=== PATIENT | female | born 1970 | race Native Hawaiian/Other Pacific Islander ===

== ENCOUNTER 2018-03-22 10:27 | Inpatient (IN) | payer MEDICARE, MEDICAID ==
[2018-03-22] MEDS ORDERED: NORMAL SALINE 1000 ML 1,000 ML IV PRN ×2 (10:46→15:12)
--- NOTE | 2018-03-22 10:53 | ER Document Report ---
ED Medical Screen (RME) - General Chief Complaint: Shortness Of Breath Stated Complaint: SHORTNESS OF BREATH Time Seen by Provider: 03/22/18 10:46 Notes: ELI,TRENA Erwin Female : 1970 MedRec# [id number] 03/22/18 10:30 - ED Nursing Note by BOBBY MORAN Acct Num: [id number] : 1970 Patient Age: 47 ASSISTED PT OUT OF CAR. PT REPORTS SHORTNESS OF BREATH THAT STARTED YESTERDAY. STATES SHE DOES HAVE SOME CONGESTION. Initialized on 03/22/18 10:30 - END OF NOTE 47 years old female with a history of COPD on home oxygen as needed basis presents today with a fever of 102, shaking and shivering with difficulty in breathing and pulse oximetry of 88% on room air. TRAVEL OUTSIDE OF THE [place] IN LAST 30 DAYS: No - Related Data Allergies/Adverse Reactions: No Known Allergies Allergy (Verified 03/22/18 10:30) Past Medical History - Social History Frequency of alcohol use: None Drug Abuse: None - Past Medical History Cardiac Medical History: Reports: Hx Congestive Heart Failure, Hx Hypercholesterolemia, Hx Hypertension Pulmonary Medical History: Reports: Hx COPD Endocrine Medical History: Reports: Hx Diabetes Mellitus Type 2 Renal/ Medical History: Denies: Hx Peritoneal Dialysis Physical Exam - Vital signs Vitals: Temp Pulse Resp BP Pulse Ox 102.9 F H 124 H 20 140/85 H 88 L 03/22/18 10:34 03/22/18 10:34 03/22/18 10:34 03/22/18 10:34 03/22/18 10:34 Course - Vital Signs Vital signs: Temp Pulse Resp BP Pulse Ox 102.9 F H 124 H 24 H 140/85 H 88 L 03/22/18 10:34 03/22/18 10:34 03/22/18 10:48 03/22/18 10:34 03/22/18 10:34
[2018-03-22 11:24] LABS: ABSOLUTE BASOPHILS # (AUTO) 0.1 10^3/uL (0.0-0.2); ABSOLUTE LYMPHOCYTES (AUTO) 1.2 10^3/uL (0.5-4.7); ABSOLUTE MONOCYTES (AUTO) 1.3 10^3/uL (0.1-1.4); ABSOLUTE NEUT (AUTO) 14.3 10^3/uL (1.7-8.2); BASOPHILS % (AUTO) 0.6 % (0-2); EOSINOPHILS % (AUTO) 0.1 % (0-6); HEMOGLOBIN 15.8 g/dL (12.0-15.5); LYMPHOCYTES % (AUTO) 7.3 % (13-45); MEAN CORPUSCULAR HEMOGLOBIN 26.9 pg (27.0-33.4); MEAN CORPUSCULAR HGB CONC 32.9 g/dL (32.0-36.0); MEAN CORPUSCULAR VOLUME 82 fl (80-97); MONOCYTES % (AUTO) 7.8 % (3-13); PLATELET COUNT 196 10^3/uL (150-450); RED BLOOD COUNT 5.87 10^6/uL (3.72-5.28); RED CELL DISTRIBUTION WIDTH 15.7 % (11.5-14.0); SEGMENTED NEUTROPHILS % (AUTO) 84.2 % (42-78); TOTAL CELLS COUNTED % (AUTO) 100 %
[2018-03-22 11:33] LABS: INTERNATIONAL RATION (INR) 1.24; PROTHROMBIN TIME 16.2 SEC (11.4-15.4)
[2018-03-22] MEDS ORDERED: ACETAMINOPHEN 325 MG TABLET PO ONE (11:40)
--- NOTE | 2018-03-22 11:51 | RADIOLOGY REPORT (SQ) ---
EXAM DESCRIPTION: CHEST SINGLE VIEW COMPLETED DATE/TIME: 03/22/2018 11:24 am REASON FOR STUDY: Shortness of breath COMPARISON: None. EXAM PARAMETERS: NUMBER OF VIEWS: One view. TECHNIQUE: Single frontal radiographic view of the chest acquired. RADIATION DOSE: NA LIMITATIONS: None. FINDINGS: LUNGS AND PLEURA: No opacities, masses or pneumothorax. No pleural effusion. MEDIASTINUM AND HILAR STRUCTURES: No masses. Contour normal. HEART AND VASCULAR STRUCTURES: Cardiomegaly. BONES: No acute findings. HARDWARE: None in the chest. OTHER: No other significant finding. IMPRESSION: Cardiomegaly without acute abnormality of the lungs in AP projection. TECHNICAL DOCUMENTATION: JOB ID: [id number] [employer] All Rights Reserved Reading location - IP/workstation name: [email or web address]
[2018-03-22 11:52] LABS: ALANINE AMINOTRANSFERASE 28 U/L (9-52); ALBUMIN 3.9 g/dL (3.5-5.0); ALKALINE PHOSPHATASE 233 U/L (38-126); ANION GAP 15 (5-19); ASPARTATE AMINO TRANSFERASE 31 U/L (14-36); BILIRUBIN,DIRECT 1.1 mg/dL (0.0-0.4); BLOOD UREA NITROGEN 16 mg/dL (7-20); CALCIUM 9.2 mg/dL (8.4-10.2); CARBON DIOXIDE 31 mmol/L (22-30); CHLORIDE 94 mmol/L (98-107); GLUCOSE 224 mg/dL (75-110); POTASSIUM 3.9 mmol/L (3.6-5.0); SODIUM 139.5 mmol/L (137-145); TOTAL PROTEIN 7.5 g/dL (6.3-8.2)
--- NOTE | 2018-03-22 11:58 | ER Document Report ---
ED General - General Chief Complaint: Shortness Of Breath Stated Complaint: SHORTNESS OF BREATH Time Seen by Provider: 03/22/18 10:46 Information source: Patient Notes: Patient is a 47-year-old female with past medical history including congestive heart failure, diabetes, high blood pressure, high cholesterol, on CPAP at night and oxygen during the day as needed who presents today visiting from [place] with 2 days of runny nose, congestion, shortness of breath, vomiting x2, and diarrhea x2, with diffuse body aches and a temperature max of 103. Patient denies any specific headache, neck pain, chest pain, but does state around 2 days of some urinary incontinence with some suprapubic abdominal discomfort with urination. Patient denies any flank pain or rash. TRAVEL OUTSIDE OF THE [place] IN LAST 30 DAYS: No - HPI Onset: Other - See above Onset/Duration: Gradual Quality of pain: Achy Severity: Moderate Pain Level: 3 Associated symptoms: Other - See above Exacerbated by: Denies Relieved by: Denies Similar symptoms previously: No Recently seen / treated by doctor: No - Related Data Allergies/Adverse Reactions: No Known Allergies Allergy (Verified 03/22/18 10:30) Past Medical History - Social History Smoking Status: Current Every Day Smoker Frequency of alcohol use: None Drug Abuse: None Family History: Reviewed & Not Pertinent Patient has suicidal ideation: No Patient has homicidal ideation: No - Past Medical History Cardiac Medical History: Reports: Hx Congestive Heart Failure, Hx Hypercholesterolemia, Hx Hypertension Pulmonary Medical History: Reports: Hx COPD Endocrine Medical History: Reports: Hx Diabetes Mellitus Type 2 Renal/ Medical History: Denies: Hx Peritoneal Dialysis Review of Systems - Review of Systems Constitutional: denies: Fever EENT: denies: Eye discharge, Nose discharge Cardiovascular: denies: Chest pain, Palpitations Respiratory: Short of breath Gastrointestinal: Diarrhea, Vomiting Genitourinary: Dysuria Musculoskeletal: denies: Leg swelling Skin: Other - no hives. denies: Rash Neurological/Psychological: Other - no slurred speech -: Yes All other systems reviewed and negative Physical Exam - Vital signs Vitals: Temp Pulse Resp BP Pulse Ox 102.9 F H 124 H 20 140/85 H 88 L 03/22/18 10:34 03/22/18 10:34 03/22/18 10:34 03/22/18 10:34 03/22/18 10:34 Notes: Reviewed vital signs and nursing note as charted by RN. CONSTITUTIONAL: Alert and oriented, Well-appearing; well-nourished HEAD: Normocephalic; atraumatic EYES: PERRL ENT: Normal nose; positive nasal rhinorrhea; moist mucous membranes; pharynx without lesions noted NECK: Supple without meningismus; non-tender; no cervical lymphadenopathy, no masses CARD: Tachycardic w without murmurs; symmetric distal pulses RESP: Normal chest excursion without splinting or tachypnea; breath sounds clear and equal bilaterally; no obvious rhonchi on my initial examination ABD/GI: Normal bowel sounds; elevated BMI; soft, minimal tenderness to palpation of the suprapubic region without rebound or guarding; no palpable organomegaly or masses BACK: The back appears normal and is non-tender to palpation EXT: Normal ROM in all joints; non-tender to palpation; no edema SKIN: No acute lesions noted NEURO: CN 2-12 intact; 5/5 bilateral upper and lower extremity strength with sensation intact to light touch PSYCH: The patient's mood and manner are appropriate. Grooming and personal hygiene are appropriate. Course - Re-evaluation Re-evalutation: Given the history and physical examination, we will obtain basic labs, lactic acid level, catheterized urine analysis, and x-ray of the chest, antipyretics, and influenza test, and reassess. I would like to evaluate for possible pneumonia, sepsis, influenza, or urinary tract infection. I do believe the risk of bacterial meningitis to be low at this time given the lack of headache with the other symptomatology as recorded. 03/22/18 11:57 Labs as recorded. X-ray, urine analysis, and influenza are pending. Lactic acid is slightly elevated. Given the history of heart failure, a liter of fluid has been given. I do not believe it is appropriate to provide 30 cc/kg at this time. 03/22/18 12:03 EKG shows a heart rate of 126, sinus tachycardia, poor wave progression, no obvious ST elevation or depression. 03/22/18 12:52 Urine analysis as recorded. Urine culture has been sent and Rocephin has been provided. Patient is currently at ultrasound. X-ray of the chest shows cardiomegaly with no obvious infiltrate. 03/22/18 14:25 Ultrasound of the gallbladder was unremarkable with no signs of cholecystitis and no common bile duct dilation. Vital signs have improved. Repeat lactic acid as recorded. Antibiotics have been provided. Patient will be admitted to the hospitalist service. - Vital Signs Vital signs: Temp Pulse Resp BP Pulse Ox 102.9 F H 124 H 24 H 139/91 H 93 03/22/18 10:34 03/22/18 10:34 03/22/18 13:02 03/22/18 12:01 03/22/18 12:01 - Laboratory Result Diagrams: 03/22/18 11:00 03/22/18 11:00 Laboratory results interpreted by me: 03/22/18 03/22/18 03/22/18 11:00 11:00 11:00 WBC 17.0 H RBC 5.87 H Hgb 15.8 H Hct 48.0 H MCH 26.9 L RDW 15.7 H Seg Neutrophils % 84.2 H Lymphocytes % 7.3 L Absolute Neutrophils 14.3 H PT 16.2 H ABG pH ABG pO2 ABG HCO3 ABG Total CO2 Chloride 94 L Carbon Dioxide 31 H Est GFR (Non-Af Amer) 54 L Glucose 224 H Lactic Acid Total Bilirubin 3.0 H Direct Bilirubin 1.1 H Alkaline Phosphatase 233 H NT-Pro-B Natriuret Pep Urine Protein Urine Blood Urine Nitrite Ur Leukocyte Esterase 03/22/18 03/22/18 03/22/18 11:00 11:00 12:00 WBC RBC Hgb Hct MCH RDW Seg Neutrophils % Lymphocytes % Absolute Neutrophils PT ABG pH 7.50 H ABG pO2 79.1 L ABG HCO3 29.6 H ABG Total CO2 30.8 H Chloride Carbon Dioxide Est GFR (Non-Af Amer) Glucose Lactic Acid 2.3 H Total Bilirubin Direct Bilirubin Alkaline Phosphatase NT-Pro-B Natriuret Pep 7890 H Urine Protein Urine Blood Urine Nitrite Ur Leukocyte Esterase 03/22/18 12:27 WBC RBC Hgb Hct MCH RDW Seg Neutrophils % Lymphocytes % Absolute Neutrophils PT ABG pH ABG pO2 ABG HCO3 ABG Total CO2 Chloride Carbon Dioxide Est GFR (Non-Af Amer) Glucose Lactic Acid Total Bilirubin Direct Bilirubin Alkaline Phosphatase NT-Pro-B Natriuret Pep Urine Protein 100 H Urine Blood LARGE H Urine Nitrite POSITIVE H Ur Leukocyte Esterase LARGE H Critical Care Note - Critical Care Note Total time excluding time spent on procedures (mins): 35 Discharge - Discharge Clinical Impression: Sepsis Qualifiers: Sepsis type: sepsis due to unspecified organism Qualified Code(s): A41.9 - Sepsis, unspecified organism Urinary tract infection Qualifiers: Urinary tract infection type: site unspecified Hematuria presence: without hematuria Qualified Code(s): N39.0 - Urinary tract infection, site not specified Condition: Fair Disposition: ADMITTED INPATIENT Admitting Provider: Hospitalist Unit Admitted: Telemetry
[2018-03-22] MEDS ORDERED: PIPERACILLIN SODIUM/TAZOBACTAM 4.5 GM in NORMAL SALINE 100 ML IV SCH (12:00)
[2018-03-22 12:33] LABS: ARTERIAL BLOOD H2CO3 1.18 mmol/L (1.05-1.35); ARTERIAL BLOOD HCO3 29.6 mmol/L (20-24); ARTERIAL BLOOD O2 SATURATION 96.6 % (94-98); ARTERIAL BLOOD PCO2 39.2 mmHg (35-45); ARTERIAL BLOOD PO2 79.1 mmHg (80-100); ARTERIAL BLOOD TOTAL CO2 30.8 mmol/L (21-25)
[2018-03-22 12:34] LABS: ARTERIAL BLOOD FIO2 4L
[2018-03-22 12:40] LABS: A TYPE INFLUENZA AG NEGATIVE (NEGATIVE); B INFLUENZA AG NEGATIVE (NEGATIVE)
[2018-03-22 12:51] LABS: APPEARANCE,URINE TURBID; BILIRUBIN,URINE NEGATIVE (NEGATIVE); COLOR,URINE AMBER; GLUCOSE, URINE NEGATIVE (NEGATIVE); KETONES,URINE NEGATIVE (NEGATIVE); LEUKOCYTE ESTERASE,URINE LARGE (NEGATIVE); NITRITE,URINE POSITIVE (NEGATIVE); PROTEIN,URINE 100 mg/dL (NEGATIVE); URINE SPECIFIC GRAVITY 1.009; UROBILINOGEN,URINE NEGATIVE mg/dL (<2.0)
[2018-03-22] MEDS ORDERED: CEFTRIAXONE 1 GM/D5W RTU 1 GM/50 ML RTUPB IV ONE ×2 (12:52→21:00)
[2018-03-22] MEDS ORDERED: MORPHINE SULFATE 10 MG/ML INJ IV ONE (13:08)
--- NOTE | 2018-03-22 13:39 | RADIOLOGY REPORT (SQ) ---
EXAM DESCRIPTION: U/S ABDOMEN LIMITED W/O DOP COMPLETED DATE/TIME: 03/22/2018 1:14 pm REASON FOR STUDY: 17; elevated bili and alk phos with fever and vomit COMPARISON: None. TECHNIQUE: Dynamic and static grayscale images acquired of the abdomen and recorded on PACS. Additio nal selected color Doppler and spectral images recorded. LIMITATIONS: None. FINDINGS: PANCREAS: No masses. Visualized pancreatic duct normal caliber. LIVER: No masses. Echotexture normal. LIVER VASCULATURE: Normal directional flow of the main portal vein and hepatic veins. GALLBLADDER: Gallstones. Normal wall thickness. No pericholecystic fluid. ULTRASOUND-DETECTED RODRIGUEZ'S SIGN: Negative. INTRAHEPATIC DUCTS AND COMMON DUCT: CBD and intrahepatic ducts normal caliber. No filling defects. INFERIOR VENA CAVA: Normal flow. AORTA: No aneurysm. RIGHT KIDNEY: Normal size. Normal echogenicity. No solid or suspicious masses. No hydronephrosis. No calcifications. PERITONEAL AND RIGHT PLEURAL SPACE: No ascites or effusions. OTHER: No other significant findings. IMPRESSION: Gallstones without ultrasound evidence of acute cholecystitis. No biliary ductal dilata tion. No gallbladder wall thickening. No pericholecystic fluid. Negative sonographic Rodriguez's sign . TECHNICAL DOCUMENTATION: JOB ID: [id number] [employer]- All Rights Reserved Reading location - IP/workstation name: [email or web address]
[2018-03-22] MEDS ORDERED: DEXTROSE 50%-WATER 25 GM/50 ML DISP.SYRIN IV PRN ×2 (15:18)
[2018-03-22] MEDS ORDERED: GLUCAGON,HUMAN RECOMB 1 MG INJ IM PRN (15:18)
[2018-03-22] MEDS ORDERED: DEXTROSE 40% GEL 15 GM TUBE PO PRN ×2 (15:18)
--- NOTE | 2018-03-22 15:40 | PDOC H&P ---
History of Present Illness Admission Date/PCP: 03/22/2018 Patient complains of: Fever and chills History of Present Illness: TRENA BENITEZ is a 47 year old female With history of diabetes mellitus morbid obesity, hypertension, hyperlipidemia, congestive heart failure osteoarthritis, obstructive sleep apnea came to the emergency room with complaints of fever of 2 days duration. As per the patient fever is associated with cough and cold coughing up yellow sputum. She is also complaining of chills and sweats with fever. Denying any chest pain but complains of shortness of breath. Patient is also reporting nausea vomiting's vomiting watery substance and also loose stools 2-3 times a day watery stools. No blood in the stool. As per the patient is also complaining of dry mouth. Logical symptoms like headache dizziness was reported denies any history of falls. Is any confusion altered mental status. She never had these problems. The emergency room workup was done and was negative WBC is elevated. She has a fever of 103 lactic acid was elevated found to have UTI patient was given Rocephin 1 g IV and medical consult was called for admission. Cultures urine cultures was sent from the ER. Past Medical History Cardiac Medical History: Reports: Congestive Heart Failure, Hyperlipidema, Hypertension Pulmonary Medical History: Reports: Chronic Obstructive Pulmonary Disease (COPD) Endocrine Medical History: Reports: Diabetes Mellitus Type 2 Musculoskeltal Medical History: Reports: Arthritis Social History Smoking Status: Current Every Day Smoker Family History Family History: Reviewed & Not Pertinent Parental Family History Reviewed: Yes Children Family History Reviewed: Yes Sibling(s) Family History Reviewed.: Yes Medication/Allergy Allergies/Adverse Reactions: No Known Allergies Allergy (Verified 03/22/18 10:30) Review of Systems Constitutional: PRESENT: chills, fatigue, fever(s), headache(s), weakness Eyes: ABSENT: visual disturbances Ears: ABSENT: hearing changes Nose, Mouth, and Throat: PRESENT: sore throat Cardiovascular: ABSENT: dyspnea on exertion, edema, orthropnea Respiratory: PRESENT: cough, dyspnea, sputum Gastrointestinal: PRESENT: diarrhea, nausea, vomiting Genitourinary: PRESENT: dysuria, other - Pressure in the lower abdomen during urination. Neurological: PRESENT: as per HPI Psychiatric: ABSENT: anxiety, depression, homidical ideation, suicidal ideation Endocrine: ABSENT: polyphagia, polyuria Physical Exam Vital Signs: Temp Pulse Resp BP Pulse Ox 102.9 F H 124 H 24 H 139/91 H 93 03/22/18 10:34 03/22/18 10:34 03/22/18 13:02 03/22/18 12:01 03/22/18 12:01 Intake & Output 03/21/18 03/22/18 03/23/18 06:59 06:59 06:59 Intake Total 1000 Balance 1000 Weight 127.006 kg General appearance: PRESENT: no acute distress Head exam: PRESENT: atraumatic Eye exam: PRESENT: PERRLA Mouth exam: PRESENT: dry mucosa Neck exam: ABSENT: carotid bruit, JVD, lymphadenopathy, thyromegaly Respiratory exam: PRESENT: decreased breath sounds, wheezes Cardiovascular exam: PRESENT: tachycardia GI/Abdominal exam: PRESENT: normal bowel sounds, soft. ABSENT: tenderness Neurological exam: PRESENT: alert, awake, oriented to person, oriented to place , oriented to time, oriented to situation, CN II-XII grossly intact. ABSENT: motor sensory deficit Psychiatric exam: PRESENT: appropriate affect, normal mood. ABSENT: homicidal ideation, suicidal ideation Results Laboratory Results: 03/22/18 11:00 03/22/18 11:00 03/22/18 03/22/18 03/22/18 11:00 11:00 11:00 WBC 17.0 H RBC 5.87 H Hgb 15.8 H Hct 48.0 H MCV 82 MCH 26.9 L MCHC 32.9 RDW 15.7 H Plt Count 196 Seg Neutrophils % 84.2 H Lymphocytes % 7.3 L Monocytes % 7.8 Eosinophils % 0.1 Basophils % 0.6 Absolute Neutrophils 14.3 H Absolute Lymphocytes 1.2 Absolute Monocytes 1.3 Absolute Eosinophils 0.0 Absolute Basophils 0.1 Carbonic Acid HCO3/H2CO3 Ratio ABG pH ABG pCO2 ABG pO2 ABG HCO3 ABG O2 Saturation ABG Base Excess FiO2 Sodium 139.5 Potassium 3.9 Chloride 94 L Carbon Dioxide 31 H Anion Gap 15 BUN 16 Creatinine 1.09 Est GFR ( Amer) > 60 Est GFR (Non-Af Amer) 54 L Glucose 224 H Lactic Acid 2.3 H Calcium 9.2 Total Bilirubin 3.0 H AST 31 ALT 28 Alkaline Phosphatase 233 H Total Protein 7.5 Albumin 3.9 Urine Color Urine Appearance Urine pH Ur Specific Strawn Urine Protein Urine Glucose (UA) Urine Ketones Urine Blood Urine Nitrite Ur Leukocyte Esterase Urine WBC (Auto) Urine RBC (Auto) 03/22/18 03/22/18 03/22/18 12:00 12:27 13:40 WBC RBC Hgb Hct MCV MCH MCHC RDW Plt Count Seg Neutrophils % Lymphocytes % Monocytes % Eosinophils % Basophils % Absolute Neutrophils Absolute Lymphocytes Absolute Monocytes Absolute Eosinophils Absolute Basophils Carbonic Acid 1.18 HCO3/H2CO3 Ratio 25:1 ABG pH 7.50 H ABG pCO2 39.2 ABG pO2 79.1 L ABG HCO3 29.6 H ABG O2 Saturation 96.6 ABG Base Excess 6.0 FiO2 4L Sodium Potassium Chloride Carbon Dioxide Anion Gap BUN Creatinine Est GFR ( Amer) Est GFR (Non-Af Amer) Glucose Lactic Acid 1.0 Calcium Total Bilirubin AST ALT Alkaline Phosphatase Total Protein Albumin Urine Color RADHA Urine Appearance TURBID Urine pH 5.0 Ur Specific Strawn 1.009 Urine Protein 100 H Urine Glucose (UA) NEGATIVE Urine Ketones NEGATIVE Urine Blood LARGE H Urine Nitrite POSITIVE H Ur Leukocyte Esterase LARGE H Urine WBC (Auto) >182 Urine RBC (Auto) 17 Impressions: Chest X-Ray 03/22/18 10:50 IMPRESSION: Cardiomegaly without acute abnormality of the lungs in AP projection. Abdomen Ultrasound 03/22/18 11:59 IMPRESSION: Gallstones without ultrasound evidence of acute cholecystitis. No biliary ductal dilatation. No gallbladder wall thickening. No pericholecystic fluid. Negative sonographic Rodriguez's sign. Assessment & Plan - Diagnosis (1) Sepsis Qualifiers: Sepsis type: sepsis due to unspecified organism Qualified Code(s): A41.9 - Sepsis, unspecified organism Is this a current diagnosis for this admission?: Yes Plan: 03/22/2018 47-year-old female came in with high fevers elevated lactic acid level elevated WBC and UTI indicating early sepsis or septic "protocol was implemented. She was given IV antibiotics in the ER blood cultures urine cultures were done in the ER as the flu was negative I started her on levofloxacin 500 mg IV daily Rocephin 1 g IV daily we going to do the follow-up lactic acid levels. She is on a minimal amount of IV fluids 50 cc/h. Because of history of congestive heart failure I am going to give gentle hydration. He is going to be on Tylenol 650 mg every 4 as needed for fever of more than 101. (2) Urinary tract infection Qualifiers: Urinary tract infection type: site unspecified Hematuria presence: without hematuria Qualified Code(s): N39.0 - Urinary tract infection, site not specified Is this a current diagnosis for this admission?: Yes Plan: 03/22/2018-patient came in with fever of 103, elevated lactic acid level, elevated WBC, urinalysis shows leukoesterase positive. Patient was given Rocephin 1 g IV daily in the ER. I am going to start her on Rocephin 1 g IV daily, levofloxacin 5 mg IV daily blood cultures urine cultures are are pending patient is going up oxygen 2 L nasal cannula she is going to be placed on BiPAP at night. She is admitted as inpatient. She is admitted and IMCU. GI prophylaxis was provided. She is on DVT prophylaxis. Repeat lactic acid level is 1.0. Be going to continue to follow the lactic acid levels. Flu was negative. She is going to the nebulizer treatments. She is going to be on oxygen 2 L nasal cannula. Restart her home medications. (3) Diabetes 1.5, managed as type 2 Is this a current diagnosis for this admission?: Yes Plan: 03/22/2018-patient history of type 2 diabetes mellitus. She is on metformin at home. We are going to check her hemoglobin A1c. I placed her already on insulin sliding scale. I am going to hold metformin for now. Going to continue to monitor the blood sugars on daily basis. (4) HTN (hypertension) Is this a current diagnosis for this admission?: Yes Plan: 03/22/2018-patient has history of hypertension, blood pressure is 139/91. Be going to resume patient's home medications. (5) Sleep apnea Is this a current diagnosis for this admission?: Yes Plan: 03/22/2018-patient has history of obstructive sleep apnea she uses BiPAP at night. We are going to resume BiPAP during the hospital stay. (6) Smoker Is this a current diagnosis for this admission?: Yes Plan: 03/22/2018-patient history of chronic smoking. She smokes 5-6 cigarettes/day. Be going to put him on nicotine patch 21 mcg daily. Counseling was provided for more than 10 minutes. (7) CHF (congestive heart failure) Is this a current diagnosis for this admission?: Yes Plan: 03/22/2018 patient is given the history of congestive heart failure on examination I did not see any evidence of congestive heart failure chest x-ray has cardiomegaly no bilateral pleural effusions. No pedal edema. - Time Time Spent: 50 to 70 Minutes Critical Time spent with patient: 15-24 minutes Medications reviewed and adjusted accordingly: Yes Anticipated discharge: Home
[2018-03-22 15:55] LABS: CREATINE KINASE MB 0.39 ng/mL (<4.55)
[2018-03-22] MEDS ORDERED: NICOTINE 14 MG/24 HR PATCH.TD24 TD ONE (16:00)
[2018-03-22 16:01] LABS: TROPONIN I 0.07 ng/mL
[2018-03-22] MEDS: LEVOFLOXACIN 500 MG/D5W RTU 500 MG/100 ML RTUPB IV SCH (17:45)
[2018-03-22] MEDS: INSULIN REG, HUMAN 100 UNIT/ML 3 ML VIAL (PYX) SUBCUT PRN (19:06)
[2018-03-22] MEDS: CYCLOBENZAPRINE HCL 10 MG TABLET PO PRN (19:51)
[2018-03-22] MEDS ORDERED: HYDRALAZINE HCL INJ/PF 20 MG/1 ML SDV IV PRN (20:05)
[2018-03-22] MEDS ORDERED: ACETAMINOPHEN 650 MG SUPP.RECT PR PRN (20:05)
[2018-03-22] MEDS: MORPHINE SULFATE 10 MG/ML INJ IV PRN ×2 (20:47→23:24)
[2018-03-22] MEDS ORDERED: CEFTRIAXONE 2 GM/D5W RTU 2 GM/50 ML RTUPB IV SCH (21:00)
[2018-03-22] MEDS ORDERED: CEFTRIAXONE INJ 1000 MG VIAL ONE ×2 (21:02→21:12)
--- NOTE | 2018-03-22 21:55 | Progress Note ---
Provider Note Provider Note: Time of call to see patient 19:54 Subjective findings: Patient had an increase in tachycardia and had become more uncomfortable just prior to her transfer from the emergency room to [facility]. I was contacted by her nurse who expressed her concerns and we agreed that I would meet the patient upon her arrival at [facility]. Upon her arrival in the [facility] the patient was noted to be extremely nauseated and had 2 episodes of emesis. Additionally she continued to be hypertensive and tachycardic and was subjectively feverish with severe chills and rigors. Patient complained that she was essentially incontinent of urine because as soon as she felt the urge to go she had already passed urine involuntarily. Objective findings: General: Patient is alert and cooperative and in mild distress at the time of my evaluation, having just completed her second emesis. HEENT: Patient is noted to have mild perioral cyanosis at the time of my exam. External ocular movements are intact sclerae are nonicteric. Nasopharynx is clear. Oropharynx is clear on gross exam. Neck: Neck is supple and nontender to motion. Chest: Lungs show moderate mid and end-expiratory wheezing throughout all lung sage with good air movement present. Patient is noted to be mildly tachypneic and taking fairly shallow breaths due to abdominal discomfort. No rales or rhonchi are noted and there is no gross dullness on percussion. Heart: Shows a regular rate and rhythm without murmur. Tachycardia is noted. Abdomen: Bowel sounds are present but hypoactive in all 4 quadrants. Abdomen is mildly distended and slightly tympanitic. There is mild tenderness to palpation over the entire abdomen but more significant tenderness is noted in the suprapubic region and the bilateral flanks. Extremities: There is no clubbing cyanosis or edema noted. Range of motion and muscle masses are grossly normal. Psychiatric: Patient appears to be somewhat anxious and in mild distress due to her abdominal discomfort as well as nausea and vomiting. She is alert and oriented x4 and is noted to be in a situation appropriate mood. Assessment: 1. Acute SIRS/sepsis: 2. Nausea and vomiting 3. Tachycardia 4. Hypertension 5. Fever 6. Sleep apnea and acute bronchospasm Plan and discussion: 1. Patient asked if she could have a Espinosa catheter however in the face of a urinary tract infection of instructed her that use of a Espinosa catheter would be best avoided and that her incontinence should improve as her urinary tract infection is controlled and eliminated with antibiotic therapy. Additional discussion was given to a 2 g stat dose of Rocephin to initiate antibiotic therapy for her urea splitter organism that is the etiology of her urinary tract infection as deduced by interpretation of her urinalysis. 2. We extensively discussed controlling her nausea and vomiting with intravenous Zofran 4 mg every 4 hours as needed, additionally will be increasing her IV rate to provide adequate hydration in the face of her infection and fever and her nausea and vomiting all of which will require an increased daily fluid intake. 3. We discussed the fact that her tachycardia is primarily due to other factors such as her fever, relative hypovolemia, stress and her urinary tract infection/urosepsis. Further therapy for her tachycardia will be to address the underlying problems. 4. We have agreed that her hypertension can be controlled with IV hydralazine 20 mg every 4 hours as needed for systolic blood pressures greater than 160. 5. I have discussed with patient at length the treatment of her fever utilizing acetaminophen suppositories due to her nausea and vomiting and the ability to use oral medications once her nausea and vomiting is been controlled. 6. I have encouraged the patient to use her CPAP/BiPAP early tonight to help her get more rest and be more comfortable. Additionally as the patient has significant bronchospasm on exam I will order every 8 hours levalbuterol nebulizer therapy with her first dose being given immediately. Further discussion centered on control of her overall discomfort utilizing intravenous morphine on a sliding scale dosage based on her level of pain/ discomfort. Total critical care time 48 minutes. Time at completion of this visit 21:52
[2018-03-22] MEDS ORDERED: LABETALOL HCL INJ 20 MG/4 ML DISP.SYRIN IV PRN ×2 (21:59→22:03)
[2018-03-22] MEDS: FAMOTIDINE INJ/PF 20 MG/2 ML SDV IV SCH (22:22)
[2018-03-22] MEDS: GUAIFENESIN 600 MG TABLET.SA PO SCH (22:22)
[2018-03-22] MEDS ORDERED: ERTAPENEM SODIUM INJ 1 GM VIAL IV PRN (22:55)
[2018-03-22] MEDS ORDERED: ERTAPENEM SODIUM 1 GM in NORMAL SALINE 50 ML IV ONE (23:00)
[2018-03-22] MEDS ORDERED: ERTAPENEM SODIUM INJ 1 GM VIAL ONE (23:52)
[2018-03-22] MEDS: LEVALBUTEROL HCL NEB 1.25 MG/3 ML AMPUL NEB SCH (23:57)
[2018-03-22] MEDS: IPRATROPIUM BROMIDE 0.02% NEB 0.5 MG/2.5 ML AMPUL NEB SCH (23:57)
[2018-03-23] MEDS: ACETAMINOPHEN 325 MG TABLET PO PRN ×3 (03:05→18:47)
--- NOTE | 2018-03-23 07:50 | EKG REPORT ---
SEVERITY:- ABNORMAL ECG - SINUS TACHYCARDIA PROBABLE LEFT ATRIAL ABNORMALITY LEFT POSTERIOR FASCICULAR BLOCK NONSPECIFIC T ABNORMALITIES, INFERIOR LEADS : Confirmed by: Sulma Blanco MD 23-Mar-2018 07:49:44
[2018-03-23] MEDS: IPRATROPIUM BROMIDE 0.02% NEB 0.5 MG/2.5 ML AMPUL NEB SCH ×2 (08:08→16:01)
[2018-03-23] MEDS: LEVALBUTEROL HCL NEB 1.25 MG/3 ML AMPUL NEB SCH ×2 (08:08→16:01)
[2018-03-23] MEDS: BUDESONIDE NEB 0.5 MG/2 ML AMPUL NEB SCH ×2 (08:08→19:43)
[2018-03-23] MEDS: MORPHINE SULFATE 10 MG/ML INJ IV PRN ×5 (08:13→18:46)
[2018-03-23] MEDS: ONDANSETRON HCL INJ/PF 4 MG/2 ML SDV IV PRN ×2 (08:23→14:53)
--- NOTE | 2018-03-23 09:50 | PDOC PROGRESS REPORT ---
Subjective Progress Note for:: 03/23/18 Subjective:: 47 years old female admitted for shortness of breath fevers chills urinary symptoms. She is moaning in the bed. Median denies asked for a urine pain she said no she is hungry that switches morning. Last night patient became tachycardic tachypneic and Dr. Mcfarlane and assessed the patient and made recommendations to start her on Xopenex nebulizations and changed IV Rocephin to Invanz. I completely agree with him. Patient has a fever of 100 degrees today. Still tachycardic with heart rate of 123. Reason For Visit: SEPSIS UTI Physical Exam Vital Signs: Temp Pulse Resp BP Pulse Ox 100.0 F 123 H 22 H 112/71 96 03/23/18 04:00 03/23/18 03:02 03/23/18 03:02 03/23/18 03:02 03/23/18 03:02 Intake & Output 03/22/18 03/23/18 03/24/18 06:59 06:59 06:59 Intake Total 200 Balance 200 Weight 124.2 kg General appearance: PRESENT: mild distress Head exam: PRESENT: atraumatic Eye exam: PRESENT: PERRLA Mouth exam: PRESENT: moist Neck exam: ABSENT: carotid bruit, JVD, lymphadenopathy, thyromegaly Respiratory exam: PRESENT: decreased breath sounds, other - Mild wheezing at the bases. Cardiovascular exam: PRESENT: tachycardia, other - Sinus tachycardia with heart rate in the 120's. GI/Abdominal exam: PRESENT: other - Soft obese nontender abdomen. Extremities exam: PRESENT: other Neurological exam: PRESENT: alert, awake, oriented to person, oriented to place , oriented to time, oriented to situation, CN II-XII grossly intact. ABSENT: motor sensory deficit Psychiatric exam: PRESENT: appropriate affect, normal mood. ABSENT: homicidal ideation, suicidal ideation Results Laboratory Results: 03/23/18 06:15 Lactic Acid 1.4 Impressions: Chest X-Ray 03/22/18 10:50 IMPRESSION: Cardiomegaly without acute abnormality of the lungs in AP projection. Abdomen Ultrasound 03/22/18 11:59 IMPRESSION: Gallstones without ultrasound evidence of acute cholecystitis. No biliary ductal dilatation. No gallbladder wall thickening. No pericholecystic fluid. Negative sonographic Rodriguez's sign. Assessment & Plan - Diagnosis (1) Sepsis Qualifiers: Sepsis type: sepsis due to unspecified organism Qualified Code(s): A41.9 - Sepsis, unspecified organism Is this a current diagnosis for this admission?: Yes Plan: 03/22/2018 47-year-old female came in with high fevers elevated lactic acid level elevated WBC and UTI indicating early sepsis or septic "protocol was implemented. She was given IV antibiotics in the ER blood cultures urine cultures were done in the ER as the flu was negative I started her on levofloxacin 500 mg IV daily Rocephin 1 g IV daily we going to do the follow-up lactic acid levels. She is on a minimal amount of IV fluids 50 cc/h. Because of history of congestive heart failure I am going to give gentle hydration. He is going to be on Tylenol 650 mg every 4 as needed for fever of more than 101. 03/23/2018-patient was admitted with sepsis. Because of the high fevers, elevated lactic acid levels, elevated WBC. And urine analysis shows UTI. Urine culture showing gram-negative rods. She was started on IV Rocephin and Levaquin. It was change to Invanz. Lactic acid is 1.4. Blood cultures are pending. She is getting gentle IV hydration. We want to be careful because she has history of congestive heart failure. (2) Urinary tract infection Qualifiers: Urinary tract infection type: site unspecified Hematuria presence: without hematuria Qualified Code(s): N39.0 - Urinary tract infection, site not specified Is this a current diagnosis for this admission?: Yes Plan: 03/22/2018-patient came in with fever of 103, elevated lactic acid level, elevated WBC, urinalysis shows leukoesterase positive. Patient was given Rocephin 1 g IV daily in the ER. I am going to start her on Rocephin 1 g IV daily, levofloxacin 5 mg IV daily blood cultures urine cultures are are pending patient is going up oxygen 2 L nasal cannula she is going to be placed on BiPAP at night. She is admitted as inpatient. She is admitted and IMCU. GI prophylaxis was provided. She is on DVT prophylaxis. Repeat lactic acid level is 1.0. Be going to continue to follow the lactic acid levels. Flu was negative. She is going to the nebulizer treatments. She is going to be on oxygen 2 L nasal cannula. Restart her home medications. 03/23/2018-T-max is 100 degrees. Lactic acid is 1.4. Urine culture is growing gram-negative rods. Patient is on Invanz and levofloxacin. Complaining of urinary incontinence, requesting Espinosa's catheter. In the setting of UTI the offered her the pads/diapers instead of Espinosa's catheter. We will continue the present management. (3) Diabetes 1.5, managed as type 2 Is this a current diagnosis for this admission?: Yes Plan: 03/22/2018-patient history of type 2 diabetes mellitus. She is on metformin at home. We are going to check her hemoglobin A1c. I placed her already on insulin sliding scale. I am going to hold metformin for now. Going to continue to monitor the blood sugars on daily basis. 03/23/2018 patient is on metformin at home be withheld metformin while she was in the hospital. Requested hemoglobin A1c. Patient was on insulin sliding scale. Latest blood sugars are 224. (4) HTN (hypertension) Is this a current diagnosis for this admission?: Yes Plan: 03/22/2018-patient has history of hypertension, blood pressure is 139/91. Be going to resume patient's home medications. 03/23/2018-blood pressure is 112/71. Last night blood pressures are running high. Dr. Esteves started her on a hydralazine as needed, labetalol as needed. Heart rate is 121 today. We are going to do the CT of the chest to rule out PE. (5) Sleep apnea Is this a current diagnosis for this admission?: Yes Plan: 03/22/2018-patient has history of obstructive sleep apnea she uses BiPAP at night. We are going to resume BiPAP during the hospital stay. 03/23/2018 patient states today she needs a CPAP. BiPAP at home. I am going to discontinue BiPAP auto changed to CPAP. (6) Smoker Is this a current diagnosis for this admission?: Yes Plan: 03/22/2018-patient history of chronic smoking. She smokes 5-6 cigarettes/day. Be going to put him on nicotine patch 21 mcg daily. Counseling was provided for more than 10 minutes. 03/23/2018 smoking counseling was provided for more than 10 minutes again today. (7) CHF (congestive heart failure) Is this a current diagnosis for this admission?: Yes Plan: 03/22/2018 patient is given the history of congestive heart failure on examination I did not see any evidence of congestive heart failure chest x-ray has cardiomegaly no bilateral pleural effusions. No pedal edema. 03/23/2018 patient with a history of chronic congestive heart failure. Chest x- ray shows cardiomegaly with no bilateral pleural effusions. No evidence of fluid overload. (8) Shortness of breath Is this a current diagnosis for this admission?: Yes Plan: 03/23/2018 patient is in mild respiratory distress with tachycardia. Chest x- ray negative for pneumonia. I am going to arrange for d-dimer and CT of the chest.
[2018-03-23] MEDS ORDERED: CEFTRIAXONE 1 GM/D5W RTU 50 ML IV SCH (10:00)
[2018-03-23] MEDS ORDERED: INSULIN GLARGINE,HUM.REC.ANLOG 1,000 UNIT/10 ML UNIT SUBCUT SCH (10:00)
[2018-03-23 10:53] LABS: ABSOLUTE LYMPHOCYTES (AUTO) 1.1 10^3/uL (0.5-4.7); ABSOLUTE NEUT (AUTO) 15.1 10^3/uL (1.7-8.2); BASOPHILS % (AUTO) 0.3 % (0-2); HEMATOCRIT 46.2 % (36.0-47.0); HEMOGLOBIN 15.2 g/dL (12.0-15.5); LYMPHOCYTES % (AUTO) 5.9 % (13-45); MEAN CORPUSCULAR HGB CONC 32.9 g/dL (32.0-36.0); MEAN CORPUSCULAR VOLUME 82 fl (80-97); MONOCYTES % (AUTO) 10.9 % (3-13); PLATELET COUNT 169 10^3/uL (150-450); RED BLOOD COUNT 5.62 10^6/uL (3.72-5.28); RED CELL DISTRIBUTION WIDTH 16.1 % (11.5-14.0); SEGMENTED NEUTROPHILS % (AUTO) 82.9 % (42-78); TOTAL CELLS COUNTED % (AUTO) 100 %; WHITE BLOOD COUNT 18.2 10^3/uL (4.0-10.5)
[2018-03-23] MEDS: ENOXAPARIN SODIUM INJ 40 MG/0.4 ML DISP.SYRIN SUBCUT SCH (11:11)
[2018-03-23] MEDS: FAMOTIDINE INJ/PF 20 MG/2 ML SDV IV SCH ×2 (11:11→22:28)
[2018-03-23] MEDS: GUAIFENESIN 600 MG TABLET.SA PO SCH ×2 (11:12→22:28)
[2018-03-23 11:19] LABS: ALANINE AMINOTRANSFERASE 26 U/L (9-52); ALBUMIN 3.3 g/dL (3.5-5.0); ALKALINE PHOSPHATASE 181 U/L (38-126); ANION GAP 12 (5-19); ASPARTATE AMINO TRANSFERASE 25 U/L (14-36); BILIRUBIN,DIRECT 1.8 mg/dL (0.0-0.4); BILIRUBIN,TOTAL 2.5 mg/dL (0.2-1.3); BLOOD UREA NITROGEN 19 mg/dL (7-20); CARBON DIOXIDE 28 mmol/L (22-30); CHLORIDE 94 mmol/L (98-107); GLUCOSE 248 mg/dL (75-110); POTASSIUM 4.4 mmol/L (3.6-5.0); TOTAL PROTEIN 6.7 g/dL (6.3-8.2)
[2018-03-23] MEDS ORDERED: METOCLOPRAMIDE HCL INJ/PF 10 MG/2 ML SDV IV PRN (11:27)
[2018-03-23] MEDS ORDERED: CEFTRIAXONE SODIUM 1,000 MG in DEXTROSE 5%-WATER 50 ML IV SCH (12:00)
[2018-03-23] MEDS ORDERED: CEFTRIAXONE SODIUM 2,000 MG in DEXTROSE 5%-WATER 100 ML IV SCH (12:00)
[2018-03-23] MEDS ORDERED: ACETAMINOPHEN 325 MG TABLET PO PRN (12:30)
--- NOTE | 2018-03-23 13:28 | RADIOLOGY REPORT (SQ) ---
EXAM DESCRIPTION: CTA CHEST COMPLETED DATE/TIME: 03/23/2018 1:15 pm REASON FOR STUDY: SHORTNESS OF BREATH COMPARISON: Radiographs from yesterday. TECHNIQUE: CT scan of the chest performed using helical scanning technique with dynamic intravenous contrast injection. Images reviewed with lung, soft tissue and bone windows. Reconstructed coronal and sagittal MPR images reviewed. Additional 3 dimensional post-processing performed to develop Maximal Intensity Projection images (AR P). All images stored on PACS. All CT scanners at this facility use dose modulation, iterative reconstruction, and/or weight based d osing when appropriate to reduce radiation dose to as low as reasonably achievable (ALARA). [facility]: Dose Right [facility]: CareDose [facility]: Dose Right [facility]: Teradose 4D [facility]: Poikos CONTRAST TYPE AND DOSE: contrast/concentration: Isovue 350.00 mg/ml; Total Contrast Delivered: 89.0 ml; Total Saline Delivered: 61.8 ml Contrast bolus optimized for the pulmonary arteries. Not diagnostic for the aorta. RENAL FUNCTION: None required. The patient is less than 50 years old. RADIATION DOSE: CT Rad equipment meets quality standard of care and radiation dose reduction techniq ues were employed. CTDIvol: 39.1 - 46.3 mGy. DLP: 1477 mGy-cm. . LIMITATIONS: Motion artifact limits evaluation of segmental and subsegmental pulmonary arterial bran ches. FINDINGS: LUNGS AND PLEURA: Mild areas of subsegmental atelectasis in the left upper lobe. Motion a rtifact otherwise. AORTA AND GREAT VESSELS: No aneurysm. Contrast bolus not optimized for the aorta. HEART: Cardiac enlargement. Mild coronary calcification. No pericardial effusion. PULMONARY ARTERIES: No central pulmonary embolus. Beyond this, poor assessment. HILAR AND MEDIASTINAL STRUCTURES: No identified masses or abnormal nodes. HARDWARE: None in the chest. UPPER ABDOMEN: Enlarged liver. Cholelithiasis. THYROID AND OTHER SOFT TISSUES: No masses. No adenopathy. BONES: No acute or significant finding. 3D MIPS: Confirm above findings. OTHER: No other significant finding. IMPRESSION: 1. Limited study. 2. Cardiomegaly. 3. No central pulmonary embolus. COMMENT: Quality ID # [id number]: Final reports with documentation of one or more dose reduction techniques (e.g., Automated exposure control, adjustment of the mA and/or kV according to patient size, use of iterative reconstruction technique) TECHNICAL DOCUMENTATION: JOB ID: [id number] [employer]- All Rights Reserved Reading location - IP/workstation name: [email or web address]
[2018-03-23] MEDS: MAGNESIUM SULFATE/D5W 1 GM/100 ML RTUPB IV SCH ×2 (14:53→16:58)
[2018-03-23] MEDS: HYDRALAZINE HCL 50 MG TABLET PO SCH ×2 (14:54→22:00)
[2018-03-23] MEDS: ISOSORBIDE DINITRATE 20 MG TABLET PO SCH ×2 (14:55→22:27)
[2018-03-23] MEDS ORDERED: MAGNESIUM SULFATE/D5W 1 GM/100 ML RTUPB IV ONE (16:21)
[2018-03-23] MEDS: FUROSEMIDE 40 MG TABLET PO SCH (18:46)
[2018-03-23] MEDS: INSULIN GLARGINE,HUM.REC.ANLOG 1,000 UNIT/10 ML UNIT SUBCUT SCH (18:48)
[2018-03-23] MEDS: LEVOFLOXACIN 500 MG/D5W RTU 500 MG/100 ML RTUPB IV SCH (18:48)
[2018-03-23] MEDS: INSULIN REG, HUMAN 100 UNIT/ML 3 ML VIAL (PYX) SUBCUT PRN (18:51)
[2018-03-23] MEDS: ALBUTEROL SULFATE 0.083% NEB 2.5 MG/3 ML AMPUL NEB PRN (19:44)
[2018-03-23] MEDS ORDERED: PHENAZOPYRIDINE HCL 200 MG TABLET ONE (22:07)
[2018-03-23] MEDS: PHENAZOPYRIDINE HCL 200 MG TABLET PO SCH (22:28)
[2018-03-23] MEDS: ERTAPENEM SODIUM 1 GM in NORMAL SALINE 50 ML IV SCH (22:29)
[2018-03-23] MEDS: CARVEDILOL 6.25 MG TABLET PO SCH (22:34)
[2018-03-24] MEDS: IPRATROPIUM BROMIDE 0.02% NEB 0.5 MG/2.5 ML AMPUL NEB SCH ×3 (00:16→16:01)
[2018-03-24] MEDS: LEVALBUTEROL HCL NEB 1.25 MG/3 ML AMPUL NEB SCH ×3 (00:16→16:01)
[2018-03-24] MEDS: MORPHINE SULFATE 10 MG/ML INJ IV PRN ×6 (04:46→20:04)
[2018-03-24 05:19] LABS: ABSOLUTE LYMPHOCYTES (AUTO) 1.4 10^3/uL (0.5-4.7); ABSOLUTE MONOCYTES (AUTO) 1.8 10^3/uL (0.1-1.4); ABSOLUTE NEUT (AUTO) 11.6 10^3/uL (1.7-8.2); BASOPHILS % (AUTO) 0.2 % (0-2); EOSINOPHILS % (AUTO) 0.1 % (0-6); HEMATOCRIT 41.7 % (36.0-47.0); HEMOGLOBIN 13.7 g/dL (12.0-15.5); LYMPHOCYTES % (AUTO) 9.3 % (13-45); MEAN CORPUSCULAR HEMOGLOBIN 26.8 pg (27.0-33.4); MEAN CORPUSCULAR HGB CONC 32.8 g/dL (32.0-36.0); MEAN CORPUSCULAR VOLUME 82 fl (80-97); MONOCYTES % (AUTO) 12.1 % (3-13); PLATELET COUNT 136 10^3/uL (150-450); RED CELL DISTRIBUTION WIDTH 15.7 % (11.5-14.0); SEGMENTED NEUTROPHILS % (AUTO) 78.3 % (42-78); TOTAL CELLS COUNTED % (AUTO) 100 %; WHITE BLOOD COUNT 14.8 10^3/uL (4.0-10.5)
[2018-03-24 05:46] LABS: ALANINE AMINOTRANSFERASE 21 U/L (9-52); ALBUMIN 2.7 g/dL (3.5-5.0); ALKALINE PHOSPHATASE 157 U/L (38-126); ANION GAP 9 (5-19); ASPARTATE AMINO TRANSFERASE 21 U/L (14-36); BILIRUBIN,TOTAL 1.3 mg/dL (0.2-1.3); BLOOD UREA NITROGEN 27 mg/dL (7-20); CALCIUM 7.6 mg/dL (8.4-10.2); CARBON DIOXIDE 28 mmol/L (22-30); CHLORIDE 94 mmol/L (98-107); GLUCOSE 225 mg/dL (75-110); POTASSIUM 4.4 mmol/L (3.6-5.0); SODIUM 131.2 mmol/L (137-145); TOTAL PROTEIN 5.9 g/dL (6.3-8.2)
[2018-03-24] MEDS: ISOSORBIDE DINITRATE 20 MG TABLET PO SCH ×3 (05:59→21:23)
[2018-03-24] MEDS: HYDRALAZINE HCL 50 MG TABLET PO SCH ×2 (06:00→17:33)
[2018-03-24] MEDS ORDERED: PHENAZOPYRIDINE HCL 200 MG TABLET ONE (06:41)
[2018-03-24] MEDS: PHENAZOPYRIDINE HCL 200 MG TABLET PO SCH ×3 (06:56→21:22)
[2018-03-24] MEDS: BUDESONIDE NEB 0.5 MG/2 ML AMPUL NEB SCH ×2 (08:19→19:39)
[2018-03-24] MEDS: FUROSEMIDE 40 MG TABLET PO SCH ×2 (10:36→17:40)
[2018-03-24] MEDS: FAMOTIDINE INJ/PF 20 MG/2 ML SDV IV SCH ×2 (10:36→21:23)
[2018-03-24] MEDS: ASPIRIN 81 MG TABLET, ENT COATED PO SCH (10:36)
[2018-03-24] MEDS: POTASSIUM CHLORIDE 10 MEQ CAPSULE.ER PO SCH (10:36)
[2018-03-24] MEDS: GUAIFENESIN 600 MG TABLET.SA PO SCH ×2 (10:36→21:23)
[2018-03-24] MEDS: SPIRONOLACTONE 25 MG TABLET PO SCH (10:36)
[2018-03-24] MEDS: CARVEDILOL 6.25 MG TABLET PO SCH (10:36)
[2018-03-24] MEDS: ONDANSETRON HCL INJ/PF 4 MG/2 ML SDV IV PRN (10:36)
[2018-03-24] MEDS: INSULIN GLARGINE,HUM.REC.ANLOG 1,000 UNIT/10 ML UNIT SUBCUT SCH ×2 (10:36→17:40)
[2018-03-24] MEDS: CYCLOBENZAPRINE HCL 10 MG TABLET PO PRN (10:36)
[2018-03-24] MEDS: ENOXAPARIN SODIUM INJ 40 MG/0.4 ML DISP.SYRIN SUBCUT SCH (10:37)
[2018-03-24] MEDS: METOLAZONE 2.5 MG TABLET PO SCH (10:38)
--- NOTE | 2018-03-24 11:46 | PDOC PROGRESS REPORT ---
Subjective Progress Note for:: 03/24/18 Subjective:: 47 years old female admitted for shortness of breath fevers chills urinary symptoms. She is moaning in the bed. Median denies asked for a urine pain she said no she is hungry that switches morning. Last night patient became tachycardic tachypneic and Dr. Mcfarlane and assessed the patient and made recommendations to start her on Xopenex nebulizations and changed IV Rocephin to Invanz. I completely agree with him. Patient has a fever of 100 degrees today. Still tachycardic with heart rate of 123. 03/24/2018 patient is comfortably in bed. Morning. She is looking for attention. Denies any complaints. She is complaining of morning because she wants to take a shower. The T-max is 99. Events over the night. Reason For Visit: PNEUMONIA Physical Exam Vital Signs: Temp Pulse Resp BP Pulse Ox 99.1 F 116 H 20 110/73 92 03/24/18 07:01 03/24/18 08:19 03/24/18 08:19 03/24/18 07:01 03/24/18 08:19 Intake & Output 03/23/18 03/24/18 03/25/18 06:59 06:59 06:59 Intake Total 200 2447 Output Total 0 Balance 200 2447 Weight 124.2 kg 129.7 kg General appearance: PRESENT: no acute distress Head exam: PRESENT: atraumatic Eye exam: PRESENT: PERRLA Mouth exam: PRESENT: moist Neck exam: ABSENT: carotid bruit, JVD, lymphadenopathy, thyromegaly Respiratory exam: PRESENT: clear to auscultation aime. ABSENT: rales, rhonchi, wheezes Cardiovascular exam: PRESENT: tachycardia GI/Abdominal exam: PRESENT: soft, tenderness, other - Morbidly obese abdomen. Neurological exam: PRESENT: alert, awake, oriented to person, oriented to place , oriented to time, oriented to situation, CN II-XII grossly intact. ABSENT: motor sensory deficit Psychiatric exam: PRESENT: appropriate affect, normal mood. ABSENT: homicidal ideation, suicidal ideation Results Laboratory Results: 03/24/18 04:54 03/24/18 04:54 03/24/18 03/24/18 04:54 04:54 WBC 14.8 H RBC 5.10 Hgb 13.7 Hct 41.7 MCV 82 MCH 26.8 L MCHC 32.8 RDW 15.7 H Plt Count 136 L Seg Neutrophils % 78.3 H Lymphocytes % 9.3 L Monocytes % 12.1 Eosinophils % 0.1 Basophils % 0.2 Absolute Neutrophils 11.6 H Absolute Lymphocytes 1.4 Absolute Monocytes 1.8 H Absolute Eosinophils 0.0 Absolute Basophils 0.0 Sodium 131.2 L Potassium 4.4 Chloride 94 L Carbon Dioxide 28 Anion Gap 9 BUN 27 H Creatinine 1.28 H Est GFR ( Amer) 54 L Est GFR (Non-Af Amer) 44 L Glucose 225 H Calcium 7.6 L Magnesium 2.0 Total Bilirubin 1.3 AST 21 ALT 21 Alkaline Phosphatase 157 H Total Protein 5.9 L Albumin 2.7 L Impressions: Chest X-Ray 03/22/18 10:50 IMPRESSION: Cardiomegaly without acute abnormality of the lungs in AP projection. Abdomen Ultrasound 03/22/18 11:59 IMPRESSION: Gallstones without ultrasound evidence of acute cholecystitis. No biliary ductal dilatation. No gallbladder wall thickening. No pericholecystic fluid. Negative sonographic Rodriguez's sign. Chest/Abdomen CTA 03/23/18 00:00 IMPRESSION: 1. Limited study. 2. Cardiomegaly. 3. No central pulmonary embolus. Assessment & Plan - Diagnosis (1) Sepsis Qualifiers: Sepsis type: sepsis due to unspecified organism Qualified Code(s): A41.9 - Sepsis, unspecified organism Is this a current diagnosis for this admission?: Yes Plan: 03/22/2018 47-year-old female came in with high fevers elevated lactic acid level elevated WBC and UTI indicating early sepsis or septic "protocol was implemented. She was given IV antibiotics in the ER blood cultures urine cultures were done in the ER as the flu was negative I started her on levofloxacin 500 mg IV daily Rocephin 1 g IV daily we going to do the follow-up lactic acid levels. She is on a minimal amount of IV fluids 50 cc/h. Because of history of congestive heart failure I am going to give gentle hydration. He is going to be on Tylenol 650 mg every 4 as needed for fever of more than 101. 03/23/2018-patient was admitted with sepsis. Because of the high fevers, elevated lactic acid levels, elevated WBC. And urine analysis shows UTI. Urine culture showing gram-negative rods. She was started on IV Rocephin and Levaquin. It was change to Invanz. Lactic acid is 1.4. Blood cultures are pending. She is getting gentle IV hydration. We want to be careful because she has history of congestive heart failure. All 2017-the urine cultures blood cultures came back positive for E. coli. Pansensitive. E. coli sensitive to Invanz and levofloxacin. Patient getting those 2 antibiotics now. To continue those antibiotics for a day or TWO. (2) Urinary tract infection Qualifiers: Urinary tract infection type: site unspecified Hematuria presence: without hematuria Qualified Code(s): N39.0 - Urinary tract infection, site not specified Is this a current diagnosis for this admission?: Yes Plan: 03/22/2018-patient came in with fever of 103, elevated lactic acid level, elevated WBC, urinalysis shows leukoesterase positive. Patient was given Rocephin 1 g IV daily in the ER. I am going to start her on Rocephin 1 g IV daily, levofloxacin 5 mg IV daily blood cultures urine cultures are are pending patient is going up oxygen 2 L nasal cannula she is going to be placed on BiPAP at night. She is admitted as inpatient. She is admitted and IMCU. GI prophylaxis was provided. She is on DVT prophylaxis. Repeat lactic acid level is 1.0. Be going to continue to follow the lactic acid levels. Flu was negative. She is going to the nebulizer treatments. She is going to be on oxygen 2 L nasal cannula. Restart her home medications. 03/23/2018-T-max is 100 degrees. Lactic acid is 1.4. Urine culture is growing gram-negative rods. Patient is on Invanz and levofloxacin. Complaining of urinary incontinence, requesting Espinosa's catheter. In the setting of UTI the offered her the pads/diapers instead of Espinosa's catheter. We will continue the present management. 03/24/2018 T-max is 99. Urine culture shows E. coli. Pansensitive. She is on Invanz and levofloxacin. (3) Diabetes 1.5, managed as type 2 Is this a current diagnosis for this admission?: Yes Plan: 03/22/2018-patient history of type 2 diabetes mellitus. She is on metformin at home. We are going to check her hemoglobin A1c. I placed her already on insulin sliding scale. I am going to hold metformin for now. Going to continue to monitor the blood sugars on daily basis. 03/23/2018 patient is on metformin at home be withheld metformin while she was in the hospital. Requested hemoglobin A1c. Patient was on insulin sliding scale. Latest blood sugars are 224. 2017 history of type 2 diabetes blisters. BMI is more than 50. She is on insulin sliding scale. blood sugars are 225. hemoGlobin A1c is pending. Lantus was increased to 20 units subcu twice a day. Diet exercise weight loss was advised. Dietary consult was requested. (4) HTN (hypertension) Is this a current diagnosis for this admission?: Yes Plan: 03/22/2018-patient has history of hypertension, blood pressure is 139/91. Be going to resume patient's home medications. 03/23/2018-blood pressure is 112/71. Last night blood pressures are running high. Dr. Esteves started her on a hydralazine as needed, labetalol as needed. Heart rate is 121 today. We are going to do the CT of the chest to rule out PE. 03/24/2018-patient's blood pressure today is 110/73. restarted her home medications. Home medications Coreg 6.25 mg twice daily, Lasix 40 mg twice daily, spironolactone 25 mg p.o. daily, glargine 50 p.o. every 8 hours. I increased the Coreg to 12.5 mg p.o. daily because of the tachycardia. (5) Sleep apnea Is this a current diagnosis for this admission?: Yes Plan: 03/22/2018-patient has history of obstructive sleep apnea she uses BiPAP at night. We are going to resume BiPAP during the hospital stay. 03/23/2018 patient states today she needs a CPAP. BiPAP at home. I am going to discontinue BiPAP auto changed to CPAP. 03/24/2018 patient has obstructive sleep apnea uses CPAP at night we are going to restart on CPAP. She is on BiPAP. (6) Smoker Is this a current diagnosis for this admission?: Yes Plan: 03/22/2018-patient history of chronic smoking. She smokes 5-6 cigarettes/day. Be going to put him on nicotine patch 21 mcg daily. Counseling was provided for more than 10 minutes. 03/23/2018 smoking counseling was provided for more than 10 minutes again today. 2017 patient advised to quit smoking. Smoking counseling was provided again. (7) CHF (congestive heart failure) Is this a current diagnosis for this admission?: Yes Plan: 03/22/2018 patient is given the history of congestive heart failure on examination I did not see any evidence of congestive heart failure chest x-ray has cardiomegaly no bilateral pleural effusions. No pedal edema. 03/23/2018 patient with a history of chronic congestive heart failure. Chest x- ray shows cardiomegaly with no bilateral pleural effusions. No evidence of fluid overload. 2017 history of chronic congestive heart failure. Megaly with bilateral pleural effusions. Patient is not in fluid overload. Lasix 40 mg p.o. twice daily and spironolactone 25 mg p.o. daily. (8) Shortness of breath Is this a current diagnosis for this admission?: Yes (9) Morbid obesity Is this a current diagnosis for this admission?: Yes Plan: 03/24/2018-patient's BMI is more than 50 dietary consult was requested. Exercise weight loss was advised. - Time Time Spent with patient: 15-24 minutes Smoking Cessation Education: 3 to 10 minutes Medications reviewed and adjusted accordingly: Yes Anticipated discharge: Home
[2018-03-24] MEDS ORDERED: INSULIN GLARGINE,HUM.REC.ANLOG 1,000 UNIT/10 ML UNIT SUBCUT SCH (18:00)
[2018-03-24] MEDS: ALBUTEROL SULFATE 0.083% NEB 2.5 MG/3 ML AMPUL NEB PRN (19:39)
[2018-03-24] MEDS: ERTAPENEM SODIUM 1 GM in NORMAL SALINE 50 ML IV SCH (21:22)
[2018-03-24] MEDS: CARVEDILOL 12.5 MG TABLET PO SCH (21:23)
[2018-03-25] MEDS: IPRATROPIUM BROMIDE 0.02% NEB 0.5 MG/2.5 ML AMPUL NEB SCH ×3 (00:08→16:16)
[2018-03-25] MEDS: LEVALBUTEROL HCL NEB 1.25 MG/3 ML AMPUL NEB SCH ×3 (00:08→16:16)
[2018-03-25] MEDS: ISOSORBIDE DINITRATE 20 MG TABLET PO SCH ×3 (05:21→21:49)
[2018-03-25] MEDS: PHENAZOPYRIDINE HCL 200 MG TABLET PO SCH ×3 (05:21→21:50)
[2018-03-25] MEDS: HYDRALAZINE HCL 50 MG TABLET PO SCH ×3 (05:22→21:49)
[2018-03-25 06:12] LABS: ABSOLUTE LYMPHOCYTES (AUTO) 1.9 10^3/uL (0.5-4.7); ABSOLUTE MONOCYTES (AUTO) 1.7 10^3/uL (0.1-1.4); BASOPHILS % (AUTO) 0.3 % (0-2); EOSINOPHILS % (AUTO) 0.3 % (0-6); HEMATOCRIT 41.7 % (36.0-47.0); HEMOGLOBIN 13.6 g/dL (12.0-15.5); LYMPHOCYTES % (AUTO) 16.6 % (13-45); MEAN CORPUSCULAR HEMOGLOBIN 26.6 pg (27.0-33.4); MEAN CORPUSCULAR HGB CONC 32.6 g/dL (32.0-36.0); MEAN CORPUSCULAR VOLUME 82 fl (80-97); MONOCYTES % (AUTO) 14.3 % (3-13); PLATELET COUNT 127 10^3/uL (150-450); RED CELL DISTRIBUTION WIDTH 15.2 % (11.5-14.0); SEGMENTED NEUTROPHILS % (AUTO) 68.5 % (42-78); TOTAL CELLS COUNTED % (AUTO) 100 %; WHITE BLOOD COUNT 11.6 10^3/uL (4.0-10.5)
[2018-03-25 06:24] LABS: ALANINE AMINOTRANSFERASE 28 U/L (9-52); ALBUMIN 2.8 g/dL (3.5-5.0); ALKALINE PHOSPHATASE 197 U/L (38-126); ANION GAP 11 (5-19); ASPARTATE AMINO TRANSFERASE 30 U/L (14-36); BILIRUBIN,DIRECT 0.6 mg/dL (0.0-0.4); BILIRUBIN,TOTAL 0.9 mg/dL (0.2-1.3); BLOOD UREA NITROGEN 35 mg/dL (7-20); CALCIUM 7.7 mg/dL (8.4-10.2); CARBON DIOXIDE 27 mmol/L (22-30); CHLORIDE 90 mmol/L (98-107); GLUCOSE 218 mg/dL (75-110); POTASSIUM 4.7 mmol/L (3.6-5.0); SODIUM 127.9 mmol/L (137-145); TOTAL PROTEIN 6.2 g/dL (6.3-8.2)
[2018-03-25] MEDS: BUDESONIDE NEB 0.5 MG/2 ML AMPUL NEB SCH ×2 (08:09→20:33)
[2018-03-25] MEDS: INSULIN REG, HUMAN 100 UNIT/ML 3 ML VIAL (PYX) SUBCUT PRN ×4 (08:52→21:57)
[2018-03-25] MEDS: GUAIFENESIN 600 MG TABLET.SA PO SCH ×2 (09:53→21:49)
[2018-03-25] MEDS: POTASSIUM CHLORIDE 10 MEQ CAPSULE.ER PO SCH (09:53)
[2018-03-25] MEDS: CARVEDILOL 12.5 MG TABLET PO SCH ×2 (09:53→21:49)
[2018-03-25] MEDS: SPIRONOLACTONE 25 MG TABLET PO SCH (09:53)
[2018-03-25] MEDS: ASPIRIN 81 MG TABLET, ENT COATED PO SCH (09:53)
[2018-03-25] MEDS: FUROSEMIDE 40 MG TABLET PO SCH ×2 (09:54→17:22)
[2018-03-25] MEDS: FAMOTIDINE INJ/PF 20 MG/2 ML SDV IV SCH (09:54)
[2018-03-25] MEDS: METOLAZONE 2.5 MG TABLET PO SCH (09:55)
[2018-03-25] MEDS: ENOXAPARIN SODIUM INJ 40 MG/0.4 ML DISP.SYRIN SUBCUT SCH (09:56)
[2018-03-25] MEDS: INSULIN GLARGINE,HUM.REC.ANLOG 1,000 UNIT/10 ML UNIT SUBCUT SCH ×2 (09:57→17:22)
--- NOTE | 2018-03-25 11:00 | PDOC PROGRESS REPORT ---
Subjective Progress Note for:: 03/25/18 Subjective:: 47 years old female admitted for shortness of breath fevers chills urinary symptoms. She is moaning in the bed. Median denies asked for a urine pain she said no she is hungry that switches morning. Last night patient became tachycardic tachypneic and Dr. Mcfarlane and assessed the patient and made recommendations to start her on Xopenex nebulizations and changed IV Rocephin to Invanz. I completely agree with him. Patient has a fever of 100 degrees today. Still tachycardic with heart rate of 123. 03/24/2018 patient is comfortably in bed. Morning. She is looking for attention. Denies any complaints. She is complaining of morning because she wants to take a shower. The T-max is 99. Events over the night. 03/25/2018 no acute events in the last 24 hours. Patient expressing desire to go home. 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 She reluctantly agreed to stay. She is afebrile in the last 48 hours. Reason For Visit: PNEUMONIA Physical Exam Vital Signs: Temp Pulse Resp BP Pulse Ox 97.5 F 96 19 124/99 H 92 03/25/18 03:54 03/25/18 07:19 03/25/18 07:19 03/25/18 07:19 03/25/18 07:19 Intake & Output 03/24/18 03/25/18 03/26/18 06:59 06:59 06:59 Intake Total 2447 1351 Output Total 0 1 Balance 2447 1350 Weight 129.7 kg 127.8 kg General appearance: PRESENT: no acute distress Head exam: PRESENT: atraumatic Eye exam: PRESENT: PERRLA Neck exam: ABSENT: carotid bruit, JVD, lymphadenopathy, thyromegaly Respiratory exam: PRESENT: clear to auscultation aime. ABSENT: rales, rhonchi, wheezes Cardiovascular exam: PRESENT: RRR. ABSENT: diastolic murmur, rubs, systolic murmur GI/Abdominal exam: PRESENT: normal bowel sounds, soft. ABSENT: distended, guarding, mass, organolmegaly, rebound, tenderness Extremities exam: PRESENT: full ROM. ABSENT: calf tenderness, clubbing, pedal edema Neurological exam: PRESENT: alert, awake, oriented to person, oriented to place , oriented to time, oriented to situation, CN II-XII grossly intact. ABSENT: motor sensory deficit Psychiatric exam: PRESENT: appropriate affect, normal mood. ABSENT: homicidal ideation, suicidal ideation Results Laboratory Results: 03/25/18 05:19 03/25/18 05:19 03/25/18 03/25/18 05:19 05:19 WBC 11.6 H RBC 5.10 Hgb 13.6 Hct 41.7 MCV 82 MCH 26.6 L MCHC 32.6 RDW 15.2 H Plt Count 127 L Seg Neutrophils % 68.5 Lymphocytes % 16.6 Monocytes % 14.3 H Eosinophils % 0.3 Basophils % 0.3 Absolute Neutrophils 8.0 Absolute Lymphocytes 1.9 Absolute Monocytes 1.7 H Absolute Eosinophils 0.0 Absolute Basophils 0.0 Sodium 127.9 L Potassium 4.7 Chloride 90 L Carbon Dioxide 27 Anion Gap 11 BUN 35 H Creatinine 1.38 H Est GFR ( Amer) 49 L Est GFR (Non-Af Amer) 41 L Glucose 218 H Calcium 7.7 L Total Bilirubin 0.9 AST 30 ALT 28 Alkaline Phosphatase 197 H Total Protein 6.2 L Albumin 2.8 L Impressions: Chest X-Ray 03/22/18 10:50 IMPRESSION: Cardiomegaly without acute abnormality of the lungs in AP projection. Abdomen Ultrasound 03/22/18 11:59 IMPRESSION: Gallstones without ultrasound evidence of acute cholecystitis. No biliary ductal dilatation. No gallbladder wall thickening. No pericholecystic fluid. Negative sonographic Rodriguez's sign. Chest/Abdomen CTA 03/23/18 00:00 IMPRESSION: 1. Limited study. 2. Cardiomegaly. 3. No central pulmonary embolus. Assessment & Plan - Diagnosis (1) Sepsis Qualifiers: Sepsis type: sepsis due to unspecified organism Qualified Code(s): A41.9 - Sepsis, unspecified organism Is this a current diagnosis for this admission?: Yes Plan: 03/22/2018 47-year-old female came in with high fevers elevated lactic acid level elevated WBC and UTI indicating early sepsis or septic "protocol was implemented. She was given IV antibiotics in the ER blood cultures urine cultures were done in the ER as the flu was negative I started her on levofloxacin 500 mg IV daily Rocephin 1 g IV daily we going to do the follow-up lactic acid levels. She is on a minimal amount of IV fluids 50 cc/h. Because of history of congestive heart failure I am going to give gentle hydration. He is going to be on Tylenol 650 mg every 4 as needed for fever of more than 101. 03/23/2018-patient was admitted with sepsis. Because of the high fevers, elevated lactic acid levels, elevated WBC. And urine analysis shows UTI. Urine culture showing gram-negative rods. She was started on IV Rocephin and Levaquin. It was change to Invanz. Lactic acid is 1.4. Blood cultures are pending. She is getting gentle IV hydration. We want to be careful because she has history of congestive heart failure. 03/24/2018-the urine cultures blood cultures came back positive for E. coli. Pansensitive. E. coli sensitive to Invanz and levofloxacin. Patient getting those 2 antibiotics now. To continue those antibiotics for a day or TWO. 03/25/2018-urine cultures blood cultures came back positive for E. coli pansensitive patient's blood pressures are improved sepsis is resolved in my opinion. Blood pressure today is 124/99, pulse rate is 86. She is afebrile for the last 24 hours to 48 hours. Plan is to continue the antibiotic for today. (2) Urinary tract infection Qualifiers: Urinary tract infection type: site unspecified Hematuria presence: without hematuria Qualified Code(s): N39.0 - Urinary tract infection, site not specified Is this a current diagnosis for this admission?: Yes Plan: 03/22/2018-patient came in with fever of 103, elevated lactic acid level, elevated WBC, urinalysis shows leukoesterase positive. Patient was given Rocephin 1 g IV daily in the ER. I am going to start her on Rocephin 1 g IV daily, levofloxacin 5 mg IV daily blood cultures urine cultures are are pending patient is going up oxygen 2 L nasal cannula she is going to be placed on BiPAP at night. She is admitted as inpatient. She is admitted and IMCU. GI prophylaxis was provided. She is on DVT prophylaxis. Repeat lactic acid level is 1.0. Be going to continue to follow the lactic acid levels. Flu was negative. She is going to the nebulizer treatments. She is going to be on oxygen 2 L nasal cannula. Restart her home medications. 03/23/2018-T-max is 100 degrees. Lactic acid is 1.4. Urine culture is growing gram-negative rods. Patient is on Invanz and levofloxacin. Complaining of urinary incontinence, requesting Espinosa's catheter. In the setting of UTI the offered her the pads/diapers instead of Espinosa's catheter. We will continue the present management. 03/24/2018 T-max is 99. Urine culture shows E. coli. Pansensitive. She is on Invanz and levofloxacin. 03/25-urine culture is positive for E. coli patient is on Invanz. We will continue the present management. (3) Diabetes 1.5, managed as type 2 Is this a current diagnosis for this admission?: Yes Plan: 03/22/2018-patient history of type 2 diabetes mellitus. She is on metformin at home. We are going to check her hemoglobin A1c. I placed her already on insulin sliding scale. I am going to hold metformin for now. Going to continue to monitor the blood sugars on daily basis. 03/23/2018 patient is on metformin at home be withheld metformin while she was in the hospital. Requested hemoglobin A1c. Patient was on insulin sliding scale. Latest blood sugars are 224. 2017 history of type 2 diabetes blisters. BMI is more than 50. She is on insulin sliding scale. blood sugars are 225. hemoGlobin A1c is pending. Lantus was increased to 20 units subcu twice a day. Diet exercise weight loss was advised. Dietary consult was requested. 03/25/2018 hemoglobin A1c is 10.5. Latest blood sugar is 240. Patient is on Lantus 20 units twice a day. I increased it to 30 units twice a day and she is also on sliding scale. (4) HTN (hypertension) Is this a current diagnosis for this admission?: Yes Plan: 03/22/2018-patient has history of hypertension, blood pressure is 139/91. Be going to resume patient's home medications. 03/23/2018-blood pressure is 112/71. Last night blood pressures are running high. Dr. Esteves started her on a hydralazine as needed, labetalol as needed. Heart rate is 121 today. We are going to do the CT of the chest to rule out PE. 03/24/2018-patient's blood pressure today is 110/73. restarted her home medications. Home medications Coreg 6.25 mg twice daily, Lasix 40 mg twice daily, spironolactone 25 mg p.o. daily, hydralazine 50 p.o. every 8 hours. I increased the Coreg to 12.5 mg p.o. daily because of the tachycardia. 03/25/2018 patient's blood pressure is 124/99. Due to the present management. (5) Sleep apnea Is this a current diagnosis for this admission?: Yes Plan: 03/22/2018-patient has history of obstructive sleep apnea she uses BiPAP at night. We are going to resume BiPAP during the hospital stay. 03/23/2018 patient states today she needs a CPAP. BiPAP at home. I am going to discontinue BiPAP auto changed to CPAP. 03/24/2018 patient has obstructive sleep apnea uses CPAP at night we are going to restart on CPAP. She is on BiPAP. 03/25/2018 patient is given the history of obstructive sleep apnea. She was placed on CPAP. (6) Smoker Is this a current diagnosis for this admission?: Yes Plan: 03/22/2018-patient history of chronic smoking. She smokes 5-6 cigarettes/day. Be going to put him on nicotine patch 21 mcg daily. Counseling was provided for more than 10 minutes. 03/23/2018 smoking counseling was provided for more than 10 minutes again today. 2017 patient advised to quit smoking. Smoking counseling was provided again. 2017 patient is a chronic smoker. She was getting a nicotine patch. Smoking counseling was provided. (7) CHF (congestive heart failure) Is this a current diagnosis for this admission?: Yes Plan: 03/22/2018 patient is given the history of congestive heart failure on examination I did not see any evidence of congestive heart failure chest x-ray has cardiomegaly no bilateral pleural effusions. No pedal edema. 03/23/2018 patient with a history of chronic congestive heart failure. Chest x- ray shows cardiomegaly with no bilateral pleural effusions. No evidence of fluid overload. 2017 history of chronic congestive heart failure. cardioMegaly with bilateral pleural effusions. Patient is not in fluid overload. Lasix 40 mg p.o. twice daily and spironolactone 25 mg p.o. daily. 03/25/2018-chest x-ray shows cardiomegaly with bilateral pleural effusions. Patient is on Lasix 40 mg twice a day, spironolactone 25 mg p.o. daily and she is also on metolazone 2.5 mg p.o. daily we will continue the present management. Patient has history of chronic congestive heart failure with systolic dysfunction. (8) Shortness of breath Is this a current diagnosis for this admission?: Yes Plan: 03/23/2018 patient is in mild respiratory distress with tachycardia. Chest x- ray negative for pneumonia. I am going to arrange for d-dimer and CT of the chest. 03/25/2018-patient denies any shortness of breath today. Workup for CT was negative. (9) Morbid obesity Is this a current diagnosis for this admission?: Yes Plan: 03/24/2018-patient's BMI is more than 50 dietary consult was requested. Exercise weight loss was advised. 03/25/2018 patient's BMI is more than 50. Again stressed the need for diet exercise weight loss. (10) Hyponatremia Is this a current diagnosis for this admission?: Yes Plan: 03/25/2018-admission sodium is 139. It is gradually dropping and it was 2017 today. And creatinine is also jumped up to 1.38. Requested for nephrology consult. Ultrasound was requested. - Time Time Spent with patient: 15-24 minutes Smoking Cessation Education: over 10 minutes Medications reviewed and adjusted accordingly: Yes Anticipated discharge: Home
--- NOTE | 2018-03-25 14:04 | RADIOLOGY REPORT (SQ) ---
EXAM DESCRIPTION: U/S RETROPERITON (RENAL/AORTA) COMPLETED DATE/TIME: 03/25/2018 1:24 pm REASON FOR STUDY: ckd COMPARISON: None. TECHNIQUE: Dynamic and static grayscale images acquired of the kidneys and bladder and recorded on P ACS. Additional selected color Doppler and spectral images recorded. LIMITATIONS: None. FINDINGS: RIGHT KIDNEY: 11.5 cm in length. Normal echogenicity. No solid or suspicious masses. No hydronephrosis. No calcifications. LEFT KIDNEY: 12 cm in length. Normal echogenicity. No solid or suspicious masses. No hydroneph rosis. No calcifications. BLADDER: No masses. OTHER FINDINGS: No other significant finding. IMPRESSION: NORMAL RENAL AND BLADDER ULTRASOUND. TECHNICAL DOCUMENTATION: JOB ID: [id number] [employer]- All Rights Reserved Reading location - IP/workstation name: [email or web address]
[2018-03-25] MEDS: ACETAMINOPHEN 325 MG TABLET PO PRN (17:21)
--- NOTE | 2018-03-25 18:32 | PDOC CONSULTATION ---
Consultation Consult Date: 03/25/18 Consult reason:: hyponatremia History of Present Illness Admission Date/PCP: 03/22/18 18:31 History of Present Illness: TRENA BENITEZ is a 48 year old female with past medical history of hypertension, CHF, and diabetes. According the patient no underlining CKD. Patient came to the ER on Sunday complaining of a fever, chills, n/v and generally not feeling well. Labs were drawn and it was found that she had a UTI, elevated white count, lactic acid, and temperature. Blood cultures were drawn and she was started on empiric antibiotics. She was then transferred to the [facility] for sepsis due to a UTI. She developed SOB and tachycardia over the first night of admission. A CTA of the chest was done to rule out PE. Couple days after it was found on labs that the creatinine had been trending up. It was also noted that since admission the sodium has slowly been trending down. Today on examination the sodium was 127.9 and the creatinine was 1.38. Patient's blood sugar has been in the 200s. Patient claims to have not vomited since the first day of admission. Also denies chest pain, SOB, n/d/c. Patient also claims that "(she) wants to be out of here by Sunday because she has a plane to catch in a couple weeks." Past Medical History Cardiac Medical History: Reports: Hyperlipidemia Pulmonary Medical History: Reports: Chronic Obstructive Pulmonary Disease (COPD) Endocrine Medical History: Reports: Diabetes Mellitus Type 2 Musculoskeltal Medical History: Reports: Arthritis Past Surgical History Past Surgical History: Reports: None Social History Smoking Status: Current Every Day Smoker Cigarettes Packs Per Day: 0.5 Frequency of Alcohol Use: None Hx Recreational Drug Use: No Drugs: None Hx Prescription Drug Abuse: No Family History Parental Family History Reviewed: No Children Family History Reviewed: Unknown Sibling(s) Family History Reviewed.: Unknown Medication/Allergy Home Medications: Acetaminophen [Tylenol 325 mg Tablet] 325 mg PO Q6HP PRN MDD FILLED 12/17/17 30 DAY SUPPLY 03/23/18 Aspirin [Ecotrin 81 mg EC Tablet] 81 mg PO DAILY MDD FILLED 12/13/17 30 DAY SUPPLY 03/23/18 Carvedilol [Coreg 6.25 mg Tablet] 6.25 mg PO Q12 MDD FILLED 12/13/17 30 DAY SUPPLY 03/23/18 Furosemide [Lasix 40 mg Tablet] 40 mg PO BID MDD FILLED 12/13/17 30 DAY SUPPLY 03/23/18 Hydralazine HCl [Apresoline 50 mg Tablet] 50 mg PO Q8 MDD FILLED 12/13/17 30 DAY SUPPLY 03/23/18 Isosorbide Dinitrate [Isordil Titradose 20 Mg Tablet] 40 mg PO Q8 MDD FILLED 12/13/17 30 DAY SUPPLY 03/23/18 Metformin HCl [Glucophage 500 mg Tablet] 500 mg PO BIDACBS MDD FILLED 12/13/17 30 DAY SUPPLY 03/23/18 Metolazone [Zaroxolyn 2.5 Mg Tablet] 2.5 mg PO DAILY MDD FILLED 12/14/17 30 DAY SUPPLY 03/23/18 Potassium Chloride [Klor-Con 10 Meq Capsule ER] 10 meq PO DAILY MDD FILLED 01/20/18 30 DAY SUPPLY 03/23/18 Spironolactone [Aldactone 25 mg Tablet] 25 mg PO DAILY MDD FILLED 12/13/17 30 DAY SUPPLY 03/23/18 Allergies/Adverse Reactions: No Known Allergies Allergy (Verified 03/22/18 10:30) Review of Systems Constitutional: PRESENT: chills, fever(s). ABSENT: anorexia, night sweats, weakness Cardiovascular: ABSENT: chest pain, dyspnea on exertion, edema, orthropnea, palpitations Respiratory: ABSENT: cough, dyspnea, sputum Gastrointestinal: PRESENT: nausea, vomiting. ABSENT: abdominal pain, constipation, diarrhea Genitourinary: PRESENT: dysuria. ABSENT: difficulty urinating, hematuria, nocturia Endocrine: ABSENT: flushing, polyuria Physical Exam Vital Signs: Temp Pulse Resp BP Pulse Ox 97.8 F 91 17 93/52 L 94 03/25/18 15:19 03/25/18 15:19 03/25/18 15:19 03/25/18 15:19 03/25/18 15:19 Intake & Output 03/24/18 03/25/18 03/26/18 06:59 06:59 06:59 Intake Total 2447 1351 236 Output Total 0 1 Balance 2447 1350 236 Weight 129.7 kg 127.8 kg General appearance: PRESENT: no acute distress, morbidly obese, well-developed, well-nourished Mouth exam: PRESENT: moist, neck supple Neck exam: ABSENT: JVD, tracheal deviation Respiratory exam: PRESENT: crackles, rales. ABSENT: accessory muscle use, clear to auscultation aime, rhonchi, wheezes Cardiovascular exam: PRESENT: +S1, +S2 GI/Abdominal exam: PRESENT: soft. ABSENT: ascites, tenderness Extremities exam: PRESENT: +1 edema. ABSENT: tenderness, +2 edema Musculoskeletal exam: ABSENT: normal inspection, tenderness Neurological exam: PRESENT: alert, awake, oriented to person, oriented to place, oriented to time, oriented to situation Psychiatric exam: PRESENT: appropriate affect, normal mood Skin exam: PRESENT: dry, intact, warm. ABSENT: cyanosis Results Laboratory Results: 03/25/18 05:19 03/25/18 05:19 03/25/18 03/25/18 05:19 05:19 WBC 11.6 H RBC 5.10 Hgb 13.6 Hct 41.7 MCV 82 MCH 26.6 L MCHC 32.6 RDW 15.2 H Plt Count 127 L Seg Neutrophils % 68.5 Lymphocytes % 16.6 Monocytes % 14.3 H Eosinophils % 0.3 Basophils % 0.3 Absolute Neutrophils 8.0 Absolute Lymphocytes 1.9 Absolute Monocytes 1.7 H Absolute Eosinophils 0.0 Absolute Basophils 0.0 Sodium 127.9 L Potassium 4.7 Chloride 90 L Carbon Dioxide 27 Anion Gap 11 BUN 35 H Creatinine 1.38 H Est GFR ( Amer) 49 L Est GFR (Non-Af Amer) 41 L Glucose 218 H Calcium 7.7 L Total Bilirubin 0.9 AST 30 ALT 28 Alkaline Phosphatase 197 H Total Protein 6.2 L Albumin 2.8 L 03/25/18 05:19 NT-Pro-B Natriuret Pep 7450 H Impressions: Chest X-Ray 03/22/18 10:50 IMPRESSION: Cardiomegaly without acute abnormality of the lungs in AP projection. Abdomen Ultrasound 03/22/18 11:59 IMPRESSION: Gallstones without ultrasound evidence of acute cholecystitis. No biliary ductal dilatation. No gallbladder wall thickening. No pericholecystic fluid. Negative sonographic Rodriguez's sign. Chest/Abdomen CTA 03/23/18 00:00 IMPRESSION: 1. Limited study. 2. Cardiomegaly. 3. No central pulmonary embolus. Renal Ultrasound 03/25/18 00:00 IMPRESSION: NORMAL RENAL AND BLADDER ULTRASOUND. Assessment & Plan - Diagnosis (1) Hyponatremia Is this a current diagnosis for this admission?: Yes Plan: looks to be due to excess free water, will look to fluid restrict to 1000mL a day. Getting urine sodium, serium osmality and urine osmality. Hold diuretics for right now due to FELICIA. (2) FELICIA (acute kidney injury) Plan: nonoliguirc due to contrast induced ATN, other factors include UTI, Sepsis and possible underlining CKD from poorly controlled diabetes. Will look to hold all diuretics and nephrotoxic drugs for one day. Will reassess tomorrow and see if she can be put back on them. (3) CHF (congestive heart failure) Is this a current diagnosis for this admission?: Yes Plan: Will hold diuretics for 24 hours due to contrast induced ATN. Will look to fluid restrict to 1000mL a day to prevent worsening of CHF. (4) Diabetes 1.5, managed as type 2 Is this a current diagnosis for this admission?: Yes Plan: discussed the need to properly manage her diabetes and get the A1c under 7. She did not seem too interested in trying to improve her diabetes. Patient was made aware the consequences of correction poorly controlled diabetes. (5) Sepsis Qualifiers: Sepsis type: sepsis due to unspecified organism Qualified Code(s): A41.9 - Sepsis, unspecified organism Is this a current diagnosis for this admission?: Yes Plan: on antibiotics, white count is trending down. (6) Sleep apnea Is this a current diagnosis for this admission?: Yes Plan: on cpap (7) Urinary tract infection Qualifiers: Urinary tract infection type: site unspecified Hematuria presence: without hematuria Qualified Code(s): N39.0 - Urinary tract infection, site not spec ified Is this a current diagnosis for this admission?: Yes Plan: currently on antibiotics, cultures are back, recommend adjusting antibiotics to more narrowed spectrum antibiotic. (8) HTN (hypertension) Is this a current diagnosis for this admission?: Yes Plan: currently controlled to low, will need to monitor. If it remains below 110 systolic I would recommend decreasing blood pressure medications. (9) Morbid obesity Is this a current diagnosis for this admission?: Yes - Notes Notes: case was discussed with Dr. Geiger
[2018-03-25] MEDS: MORPHINE SULFATE 10 MG/ML INJ IV PRN (18:36)
[2018-03-25] MEDS: ERTAPENEM SODIUM 1 GM in NORMAL SALINE 50 ML IV SCH (21:49)
[2018-03-25] MEDS: FAMOTIDINE 20 MG TABLET PO SCH (21:50)
[2018-03-26] MEDS: LEVALBUTEROL HCL NEB 1.25 MG/3 ML AMPUL NEB SCH ×3 (00:35→16:48)
[2018-03-26] MEDS: IPRATROPIUM BROMIDE 0.02% NEB 0.5 MG/2.5 ML AMPUL NEB SCH ×3 (00:35→16:48)
[2018-03-26 05:21] LABS: ABSOLUTE BASOPHILS # (AUTO) 0.1 10^3/uL (0.0-0.2); ABSOLUTE LYMPHOCYTES (AUTO) 1.7 10^3/uL (0.5-4.7); ABSOLUTE MONOCYTES (AUTO) 1.5 10^3/uL (0.1-1.4); ABSOLUTE NEUT (AUTO) 6.2 10^3/uL (1.7-8.2); BASOPHILS % (AUTO) 0.5 % (0-2); EOSINOPHILS % (AUTO) 0.4 % (0-6); HEMATOCRIT 42.7 % (36.0-47.0); HEMOGLOBIN 14.2 g/dL (12.0-15.5); LYMPHOCYTES % (AUTO) 17.7 % (13-45); MEAN CORPUSCULAR HEMOGLOBIN 26.7 pg (27.0-33.4); MEAN CORPUSCULAR HGB CONC 33.3 g/dL (32.0-36.0); MEAN CORPUSCULAR VOLUME 80 fl (80-97); MONOCYTES % (AUTO) 15.4 % (3-13); PLATELET COUNT 146 10^3/uL (150-450); RED BLOOD COUNT 5.33 10^6/uL (3.72-5.28); RED CELL DISTRIBUTION WIDTH 15.2 % (11.5-14.0); TOTAL CELLS COUNTED % (AUTO) 100 %; WHITE BLOOD COUNT 9.5 10^3/uL (4.0-10.5)
[2018-03-26] MEDS: HYDRALAZINE HCL 50 MG TABLET PO SCH ×3 (05:32→22:32)
[2018-03-26 05:47] LABS: ALANINE AMINOTRANSFERASE 31 U/L (9-52); ALBUMIN 2.6 g/dL (3.5-5.0); ALKALINE PHOSPHATASE 215 U/L (38-126); ANION GAP 10 (5-19); ASPARTATE AMINO TRANSFERASE 31 U/L (14-36); BILIRUBIN,DIRECT 0.2 mg/dL (0.0-0.4); BILIRUBIN,TOTAL 0.6 mg/dL (0.2-1.3); BLOOD UREA NITROGEN 44 mg/dL (7-20); CALCIUM 7.7 mg/dL (8.4-10.2); CARBON DIOXIDE 31 mmol/L (22-30); CHLORIDE 89 mmol/L (98-107); GLUCOSE 219 mg/dL (75-110); SODIUM 129.7 mmol/L (137-145); TOTAL PROTEIN 5.7 g/dL (6.3-8.2)
[2018-03-26 05:55] LABS: POTASSIUM 3.7 mmol/L (3.6-5.0)
[2018-03-26] MEDS: PHENAZOPYRIDINE HCL 200 MG TABLET PO SCH ×3 (06:04→22:33)
[2018-03-26] MEDS: ISOSORBIDE DINITRATE 20 MG TABLET PO SCH ×3 (06:05→22:31)
[2018-03-26] MEDS: BUDESONIDE NEB 0.5 MG/2 ML AMPUL NEB SCH ×2 (09:40→20:02)
[2018-03-26] MEDS: FAMOTIDINE 20 MG TABLET PO SCH ×2 (09:44→22:31)
[2018-03-26] MEDS: SPIRONOLACTONE 25 MG TABLET PO SCH (09:45)
[2018-03-26] MEDS: ASPIRIN 81 MG TABLET, ENT COATED PO SCH (09:45)
[2018-03-26] MEDS: CARVEDILOL 12.5 MG TABLET PO SCH ×2 (09:45→22:31)
[2018-03-26] MEDS: GUAIFENESIN 600 MG TABLET.SA PO SCH ×2 (09:45→22:31)
[2018-03-26] MEDS: POTASSIUM CHLORIDE 10 MEQ CAPSULE.ER PO SCH (09:45)
[2018-03-26] MEDS: MORPHINE SULFATE 10 MG/ML INJ IV PRN ×2 (09:48→14:57)
[2018-03-26] MEDS: INSULIN GLARGINE,HUM.REC.ANLOG 1,000 UNIT/10 ML UNIT SUBCUT SCH ×2 (09:51→18:03)
[2018-03-26] MEDS: ENOXAPARIN SODIUM INJ 40 MG/0.4 ML DISP.SYRIN SUBCUT SCH (09:51)
[2018-03-26] MEDS: CEFUROXIME 250 MG TABLET PO SCH ×2 (11:42→22:31)
[2018-03-26] MEDS: INSULIN REG, HUMAN 100 UNIT/ML 3 ML VIAL (PYX) SUBCUT PRN ×3 (12:18→22:44)
--- NOTE | 2018-03-26 16:57 | PDOC PROGRESS REPORT ---
Subjective Progress Note for:: 03/26/18 Subjective:: TRENA BENITEZ is a 47 year old female with history of diabetes mellitus morbid obesity, hypertension, hyperlipidemia, congestive heart failure osteoarthritis, obstructive sleep apnea admitted 03/22/18 with sepsis, UTI, and elevated LFTs found to have cholelithiasis. The patient was seen on morning rounds. She was found resting in bed comfortably on supplemental oxygen via nasal cannula at 2 L/min. Patient states that she is not home O2 dependent but does utilize CPAP at night. The patient is minimally conversational and only answers a few questions before closing her eyes and then not participating further in our discussion. She tells me she is frustrated that she is still in the hospital and wants to be discharged so that she may fly back to [place]. She states that she is still feeling ill, but does not describe further her current symptoms. She does deny fever, chest pain, palpitations, abdominal pain, nausea, and vomiting. She does not respond when asked how her breathing is today as compared to her baseline. No concerns per nursing. Reason For Visit: PNEUMONIA Physical Exam Vital Signs: Temp Pulse Resp BP Pulse Ox 97.8 F 99 18 106/73 93 03/26/18 11:23 03/26/18 14:00 03/26/18 11:23 03/26/18 11:23 03/26/18 11:23 Intake & Output 03/25/18 03/26/18 03/27/18 06:59 06:59 06:59 Intake Total 1401 973 237 Output Total 1 Balance 1400 973 237 Weight 127.8 kg 128.5 kg General appearance: PRESENT: no acute distress, morbidly obese, well-developed, well-nourished Head exam: PRESENT: atraumatic, normocephalic Eye exam: PRESENT: conjunctiva pink, EOMI, PERRLA. ABSENT: scleral icterus Ear exam: PRESENT: normal external ear exam Mouth exam: PRESENT: moist, tongue midline Neck exam: ABSENT: carotid bruit, JVD, lymphadenopathy, thyromegaly Respiratory exam: PRESENT: clear to auscultation aime, decreased breath sounds - throughout; secondary to body habitus and poor inspiratory effort, symmetrical, unlabored, other - Supplemental oxygen via nasal cannula. ABSENT: rales, rhonchi, wheezes Cardiovascular exam: PRESENT: RRR. ABSENT: diastolic murmur, rubs, systolic murmur Pulses: PRESENT: normal dorsalis pedis pul Vascular exam: PRESENT: normal capillary refill GI/Abdominal exam: PRESENT: normal bowel sounds, soft. ABSENT: distended, guarding, mass, organolmegaly, rebound, tenderness Rectal exam: PRESENT: deferred Extremities exam: PRESENT: full ROM. ABSENT: calf tenderness, clubbing, pedal edema Neurological exam: PRESENT: alert, awake, oriented to person, oriented to place, oriented to time, oriented to situation, CN II-XII grossly intact. ABSENT: motor sensory deficit Psychiatric exam: PRESENT: appropriate affect, flat affect - withdrawan, normal mood. ABSENT: homicidal ideation, suicidal ideation Skin exam: PRESENT: dry, intact, warm. ABSENT: cyanosis, rash Results Laboratory Results: 03/26/18 05:09 03/26/18 05:09 03/26/18 03/26/18 03/26/18 05:09 05:09 05:09 WBC 9.5 RBC 5.33 H Hgb 14.2 Hct 42.7 MCV 80 MCH 26.7 L MCHC 33.3 RDW 15.2 H Plt Count 146 L Seg Neutrophils % 66.0 Lymphocytes % 17.7 Monocytes % 15.4 H Eosinophils % 0.4 Basophils % 0.5 Absolute Neutrophils 6.2 Absolute Lymphocytes 1.7 Absolute Monocytes 1.5 H Absolute Eosinophils 0.0 Absolute Basophils 0.1 Sodium 129.7 L Potassium 3.7 D Chloride 89 L Carbon Dioxide 31 H Anion Gap 10 BUN 44 H Creatinine 1.37 H Est GFR ( Amer) 50 L Est GFR (Non-Af Amer) 41 L Glucose 219 H Serum Osmolality 283 Calcium 7.7 L Total Bilirubin 0.6 AST 31 ALT 31 Alkaline Phosphatase 215 H Total Protein 5.7 L Albumin 2.6 L 03/25/18 05:19 NT-Pro-B Natriuret Pep 7450 H Impressions: Chest X-Ray 03/22/18 10:50 IMPRESSION: Cardiomegaly without acute abnormality of the lungs in AP projection. Abdomen Ultrasound 03/22/18 11:59 IMPRESSION: Gallstones without ultrasound evidence of acute cholecystitis. No biliary ductal dilatation. No gallbladder wall thickening. No pericholecystic fluid. Negative sonographic Rodriguez's sign. Chest/Abdomen CTA 03/23/18 00:00 IMPRESSION: 1. Limited study. 2. Cardiomegaly. 3. No central pulmonary embolus. Renal Ultrasound 03/25/18 00:00 IMPRESSION: NORMAL RENAL AND BLADDER ULTRASOUND. Assessment & Plan - Diagnosis (1) Sepsis Qualifiers: Sepsis type: Escherichia coli Qualified Code(s): A41.51 - Sepsis due to Escherichia coli [E. coli] Is this a current diagnosis for this admission?: Yes Plan: Resolved. Leukocytosis has resolved, lactic acid is normal at 1.4, and the patient has been afebrile for >48 hours with stable blood pressures. The patient was admitted with sepsis secondary to E. coli urinary tract infect ion, present on admission, evidenced by an elevated lactic acid level, elevated WBC, fever, tachycardia, and tachypnea. The patient was initially placed on IV Rocephin and Levaquin; this was changed to Invanz due to continued high fevers, elevated lactic acid, and leukocytosis. She was supported with gentle IV fluids secondary to her CHF. Fortunately, blood cultures have remained negative and her urine culture grew pansensitive E. coli. IV antibiotics were continued until the patient had been afebrile for greater than 48 hours. Today she is transition to p.o. Ceftin. (2) Hyponatremia Is this a current diagnosis for this admission?: Yes Plan: Slight improvement today. Sodium 139.5 on admission, trended down to 127.9. Up to 129.7 today. Likely secondary to fluid volume overload in the setting of sepsis required IV fluids. Holding diuretics. Patient is fluid restricted to 1 L daily. Nephrology is consulted; appreciate their evaluation recommendations. Urine osmolality and urine sodium pending. (3) FELICIA (acute kidney injury) Is this a current diagnosis for this admission?: Yes Plan: Secondary to IV contrast dye induced ATN. Possibly also complicated by UTI, sepsis, and likely underlying CKD from poorly controlled diabetes mellitus. Creatinine on admission 1.09; trended up to 1.38 Nephrology has been consulted; appreciate their assistance. Avoid nephrotoxic medications as able. Holding diuretics. Urine sodium and osmolality pending. (4) CHF (congestive heart failure) Is this a current diagnosis for this admission?: Yes Plan: Patient endorses a history of CHF. She does not appear to be volume overloaded on exam. Chest x-ray revealed cardiomegaly without pleural effusions. proBNP elevated to 7450; unknown baseline. Home medication regiment includes Deltasone 2.5 mg daily, Lasix 40 mg twice daily, and spinal lactone 25 mg daily; holding diuretics secondary to AK I. She is on a cardiac diet. Daily weights with strict I&O's (5) Diabetes 1.5, managed as type 2 Is this a current diagnosis for this admission?: Yes Plan: A1c 10.5% The patient is placed on a consistent carb diet with Accu-Cheks before meals and at bedtime. Lantus 30 units twice daily with Humalog for sliding scale coverage. Registered dietitian and clinical nurse educator consulted. (6) HTN (hypertension) Is this a current diagnosis for this admission?: Yes Plan: Blood pressure somewhat labile; 90/60 today. Hydralazine is decreased from 50 mg to 25 mg 3 times daily. Continue Coreg, isosorbide, and spironolactone unchanged. Holding metolazone and furosemide secondary to AK I. (7) Morbid obesity Is this a current diagnosis for this admission?: Yes Plan: Dietary discretion is advised. Registered dietitian and clinical nurse educator consulted. Out of bed 3 times daily. Ambulate in the hallways with pulse oximetry every shift. (8) Sleep apnea Is this a current diagnosis for this admission?: Yes Plan: CPAP nightly. Avoid sedating medications. (9) Urinary tract infection Qualifiers: Urinary tract infection type: site unspecified Hematuria presence: without hematuria Qualified Code(s): N39.0 - Urinary tract infection, site not specified Is this a current diagnosis for this admission?: Yes Plan: The patient was initially placed on Rocephin and Levaquin; this was transitioned to IV Invanz due to persistent fever. Urine cultures have now resulted pansensitive E. coli; she has been placed on p.o. Ceftin. Blood cultures are negative at 4 days. - Time Time Spent with patient: 15-24 minutes Medications reviewed and adjusted accordingly: Yes Anticipated discharge: Home Within: within 48 hours - pending improved Na.
[2018-03-26 17:23] LABS: OSMOLALITY,URINE 332 mOsm/kg (300-900)
[2018-03-26 17:24] LABS: URINE SODIUM 32 mmol/L (30-90)
[2018-03-26] MEDS: HYDROCODONE/ACETAMINOPHEN 5-325 MG TABLET PO PRN (19:00)
--- NOTE | 2018-03-26 20:07 | PDOC PROGRESS REPORT ---
Subjective Progress Note for:: 03/26/18 Subjective:: Patient was seen today sitting up in her chair eating breakfast. At the time she was wanting to go home despite not feeling well. Upon further decision she was willing to stay a little bit longer. Patient denies chest pain, N/V/D/C. She also denies SOB, but does require oxygen to prevent SOB. Reason For Visit: PNEUMONIA Physical Exam Vital Signs: Temp Pulse Resp BP Pulse Ox 97.6 F 94 16 92/62 L 91 L 03/26/18 15:36 03/26/18 15:36 03/26/18 15:36 03/26/18 15:36 03/26/18 15:36 Intake & Output 03/25/18 03/26/18 03/27/18 06:59 06:59 06:59 Intake Total 1401 973 459 Output Total 1 Balance 1400 973 459 Weight 127.8 kg 128.5 kg General appearance: PRESENT: no acute distress, disheveled, well-developed, wel l-nourished Mouth exam: PRESENT: moist, neck supple Neck exam: ABSENT: JVD, tracheal deviation Respiratory exam: PRESENT: crackles, decreased breath sounds, rales. ABSENT: accessory muscle use, clear to auscultation aime, rhonchi, wheezes Cardiovascular exam: PRESENT: +S1, +S2 GI/Abdominal exam: PRESENT: soft. ABSENT: ascites, tenderness Extremities exam: PRESENT: pedal edema, +1 edema. ABSENT: tenderness, +2 edema Neurological exam: PRESENT: alert, awake, oriented to person, oriented to place, oriented to time, oriented to situation Psychiatric exam: PRESENT: appropriate affect, normal mood Skin exam: PRESENT: dry, intact, warm. ABSENT: cyanosis Results Laboratory Results: 03/26/18 05:09 03/26/18 05:09 03/26/18 03/26/18 03/26/18 05:09 05:09 05:09 WBC 9.5 RBC 5.33 H Hgb 14.2 Hct 42.7 MCV 80 MCH 26.7 L MCHC 33.3 RDW 15.2 H Plt Count 146 L Seg Neutrophils % 66.0 Lymphocytes % 17.7 Monocytes % 15.4 H Eosinophils % 0.4 Basophils % 0.5 Absolute Neutrophils 6.2 Absolute Lymphocytes 1.7 Absolute Monocytes 1.5 H Absolute Eosinophils 0.0 Absolute Basophils 0.1 Sodium 129.7 L Potassium 3.7 D Chloride 89 L Carbon Dioxide 31 H Anion Gap 10 BUN 44 H Creatinine 1.37 H Est GFR ( Amer) 50 L Est GFR (Non-Af Amer) 41 L Glucose 219 H Serum Osmolality 283 Calcium 7.7 L Total Bilirubin 0.6 AST 31 ALT 31 Alkaline Phosphatase 215 H Total Protein 5.7 L Albumin 2.6 L Urine Osmolality 03/26/18 16:50 WBC RBC Hgb Hct MCV MCH MCHC RDW Plt Count Seg Neutrophils % Lymphocytes % Monocytes % Eosinophils % Basophils % Absolute Neutrophils Absolute Lymphocytes Absolute Monocytes Absolute Eosinophils Absolute Basophils Sodium Potassium Chloride Carbon Dioxide Anion Gap BUN Creatinine Est GFR ( Amer) Est GFR (Non-Af Amer) Glucose Serum Osmolality Calcium Total Bilirubin AST ALT Alkaline Phosphatase Total Protein Albumin Urine Osmolality 332 03/25/18 05:19 NT-Pro-B Natriuret Pep 7450 H Impressions: Chest X-Ray 03/22/18 10:50 IMPRESSION: Cardiomegaly without acute abnormality of the lungs in AP projection. Abdomen Ultrasound 03/22/18 11:59 IMPRESSION: Gallstones without ultrasound evidence of acute cholecystitis. No biliary ductal dilatation. No gallbladder wall thickening. No pericholecystic fluid. Negative sonographic Rodriguez's sign. Chest/Abdomen CTA 03/23/18 00:00 IMPRESSION: 1. Limited study. 2. Cardiomegaly. 3. No central pulmonary embolus. Renal Ultrasound 03/25/18 00:00 IMPRESSION: NORMAL RENAL AND BLADDER ULTRASOUND. Assessment & Plan - Diagnosis (1) Hyponatremia Is this a current diagnosis for this admission?: Yes Plan: slightly improved, cause of hyponatremia looks to be from fluid overload and excessive free water consumption. At this time I will look to continue the fluid restriction and restart the diuretics. (2) FELICIA (acute kidney injury) Is this a current diagnosis for this admission?: Yes Plan: Stabilized, patient has been off diuretics for 24 hours, at this time I will look to restart them. Reassess tomorrow morning. (3) CHF (congestive heart failure) Is this a current diagnosis for this admission?: Yes Plan: restarting diuretics (4) Diabetes 1.5, managed as type 2 Is this a current diagnosis for this admission?: Yes Plan: poorly controlled, patient does not seem to care. (5) Sepsis Qualifiers: Sepsis type: Escherichia coli Qualified Code(s): A41.51 - Sepsis due to Escherichia coli [E. coli] Is this a current diagnosis for this admission?: Yes Plan: white count is down, recently switched to ceftin. (6) Sleep apnea Is this a current diagnosis for this admission?: Yes (7) Urinary tract infection Qualifiers: Urinary tract infection type: site unspecified Hematuria presence: without hematuria Qualified Code(s): N39.0 - Urinary tract infection, site not specified Is this a current diagnosis for this admission?: Yes Plan: recently switched to ceftin. (8) HTN (hypertension) Is this a current diagnosis for this admission?: Yes Plan: patient is at the low end of normal, recently had her hydralazine decreased to 25mg. Continue to monitor. (9) Morbid obesity Is this a current diagnosis for this admission?: Yes
[2018-03-26] MEDS: CYCLOBENZAPRINE HCL 10 MG TABLET PO PRN (22:54)
[2018-03-27] MEDS: HYDROCODONE/ACETAMINOPHEN 5-325 MG TABLET PO PRN ×3 (00:19→19:45)
[2018-03-27] MEDS: IPRATROPIUM BROMIDE 0.02% NEB 0.5 MG/2.5 ML AMPUL NEB SCH ×4 (00:39→23:44)
[2018-03-27] MEDS: LEVALBUTEROL HCL NEB 1.25 MG/3 ML AMPUL NEB SCH ×4 (00:40→23:44)
[2018-03-27] MEDS: HYDRALAZINE HCL 50 MG TABLET PO SCH ×3 (05:45→21:39)
[2018-03-27] MEDS: ISOSORBIDE DINITRATE 20 MG TABLET PO SCH ×3 (05:45→21:38)
[2018-03-27] MEDS: PHENAZOPYRIDINE HCL 200 MG TABLET PO SCH (05:45)
[2018-03-27 07:06] LABS: ANION GAP 13 (5-19); BLOOD UREA NITROGEN 58 mg/dL (7-20); CALCIUM 7.9 mg/dL (8.4-10.2); CARBON DIOXIDE 30 mmol/L (22-30); CHLORIDE 87 mmol/L (98-107); GLUCOSE 170 mg/dL (75-110); POTASSIUM 4.3 mmol/L (3.6-5.0); SODIUM 129.7 mmol/L (137-145)
[2018-03-27] MEDS: BUDESONIDE NEB 0.5 MG/2 ML AMPUL NEB SCH ×2 (08:00→20:29)
[2018-03-27] MEDS: INSULIN REG, HUMAN 100 UNIT/ML 3 ML VIAL (PYX) SUBCUT PRN ×2 (08:18→17:10)
[2018-03-27] MEDS: INSULIN GLARGINE,HUM.REC.ANLOG 1,000 UNIT/10 ML UNIT SUBCUT SCH ×2 (10:27→17:10)
[2018-03-27] MEDS: ENOXAPARIN SODIUM INJ 40 MG/0.4 ML DISP.SYRIN SUBCUT SCH (10:27)
[2018-03-27] MEDS: ASPIRIN 81 MG TABLET, ENT COATED PO SCH (10:28)
[2018-03-27] MEDS: CEFUROXIME 250 MG TABLET PO SCH ×2 (10:28→21:39)
[2018-03-27] MEDS: CALCIUM CARBONATE 250 MG/VITAMIN D3 125 UNIT TABLET PO SCH (10:28)
[2018-03-27] MEDS: FAMOTIDINE 20 MG TABLET PO SCH ×2 (10:28→21:38)
[2018-03-27] MEDS: POTASSIUM CHLORIDE 10 MEQ CAPSULE.ER PO SCH (10:28)
[2018-03-27] MEDS: GUAIFENESIN 600 MG TABLET.SA PO SCH ×2 (10:28→21:38)
[2018-03-27] MEDS: CARVEDILOL 12.5 MG TABLET PO SCH ×2 (10:29→21:38)
[2018-03-27 12:14] LABS: APPEARANCE,URINE CLEAR; BILIRUBIN,URINE NEGATIVE (NEGATIVE); COLOR,URINE AMBER; GLUCOSE, URINE NEGATIVE (NEGATIVE); KETONES,URINE NEGATIVE (NEGATIVE); LEUKOCYTE ESTERASE,URINE NEGATIVE (NEGATIVE); NITRITE,URINE POSITIVE (NEGATIVE); PROTEIN,URINE NEGATIVE (NEGATIVE); URINE SPECIFIC GRAVITY 1.014
--- NOTE | 2018-03-27 14:17 | PDOC PROGRESS REPORT ---
Subjective Progress Note for:: 03/27/18 Subjective:: TRENA BENITEZ is a 47 year old female with history of diabetes mellitus morbid obesity, hypertension, hyperlipidemia, congestive heart failure osteoarthritis, obstructive sleep apnea admitted 03/22/18 with sepsis, UTI, and elevated LFTs found to have cholelithiasis. The patient was seen on morning rounds. She was found sitting up to the edge of the bed comfortably on room air. Patient states that she is not home O2 dependent but does utilize CPAP at night. She is noted to be tearful upon my entering the room; discussing with nursing remaining in the hospital today. The patient reports that she is homesick and wishes to be discharged that she may fly back to [place]. We discussed her continued improving respiratory status, however, my concern regarding her kidney function today and the need to remain inpatient for further evaluation recommendations by the nephrology team. The patient is understandably disappointed, but does agree to stay. She denies fever, chills, headache, chest pain, palpitations, dyspnea at rest, orthopnea, cough, abdominal pain, nausea vomiting and diarrhea. She is encouraged to contact her local family members and request visitors, as well as, to ambulate in the hallways to increase her sense of social interaction and decrease isolation in her room. No concerns per nursing. Reason For Visit: PNEUMONIA Physical Exam Vital Signs: Temp Pulse Resp BP Pulse Ox 97.8 F 85 20 119/86 H 93 03/27/18 11:56 03/27/18 11:56 03/27/18 11:56 03/27/18 10:28 03/27/18 11:56 Intake & Output 03/26/18 03/27/18 03/28/18 06:59 06:59 06:59 Intake Total 973 559 115 Output Total 500 300 Balance 973 59 -185 Weight 128.5 kg 128.7 kg General appearance: PRESENT: no acute distress, morbidly obese, well-developed, well-nourished Head exam: PRESENT: atraumatic, normocephalic Eye exam: PRESENT: conjunctiva pink, EOMI, PERRLA. ABSENT: scleral icterus Ear exam: PRESENT: normal external ear exam Mouth exam: PRESENT: moist, tongue midline Neck exam: ABSENT: carotid bruit, JVD, lymphadenopathy, thyromegaly Respiratory exam: PRESENT: clear to auscultation aime, decreased breath sounds - Secondary to body habitus and poor inspiratory effort, prolonged expiratory phas, symmetrical, unlabored. ABSENT: rales, rhonchi, wheezes Cardiovascular exam: PRESENT: RRR. ABSENT: diastolic murmur, rubs, systolic murmur Pulses: PRESENT: normal dorsalis pedis pul Vascular exam: PRESENT: normal capillary refill GI/Abdominal exam: PRESENT: normal bowel sounds, soft. ABSENT: distended, guarding, mass, organolmegaly, rebound, tenderness Rectal exam: PRESENT: deferred Extremities exam: PRESENT: full ROM. ABSENT: calf tenderness, clubbing, pedal edema Neurological exam: PRESENT: alert, awake, oriented to person, oriented to place, oriented to time, oriented to situation, CN II-XII grossly intact. ABSENT: motor sensory deficit Psychiatric exam: PRESENT: appropriate affect, other - Tearful. ABSENT: homicidal ideation, suicidal ideation Skin exam: PRESENT: dry, intact, warm. ABSENT: cyanosis, rash Results Laboratory Results: 03/26/18 05:09 03/27/18 05:07 03/26/18 03/27/18 03/27/18 16:50 05:07 10:50 Sodium 129.7 L Potassium 4.3 Chloride 87 L Carbon Dioxide 30 Anion Gap 13 BUN 58 H Creatinine 1.74 H Est GFR ( Amer) 38 L Est GFR (Non-Af Amer) 31 L Glucose 170 H Calcium 7.9 L Urine Color RADHA Urine Appearance CLEAR Urine pH 5.0 Ur Specific [place] 1.014 Urine Protein NEGATIVE Urine Glucose (UA) NEGATIVE Urine Ketones NEGATIVE Urine Blood NEGATIVE Urine Nitrite POSITIVE H Ur Leukocyte Esterase NEGATIVE Urine WBC (Auto) 3 Urine RBC (Auto) 2 Urine Osmolality 332 03/22/18 13:40 Blood Blood Culture - Final NO GROWTH IN 5 DAYS 03/22/18 03/25/18 11:00 05:19 CK-MB (CK-2) 0.39 Troponin I 0.070 NT-Pro-B Natriuret Pep 7890 H 7450 H Impressions: Chest X-Ray 03/22/18 10:50 IMPRESSION: Cardiomegaly without acute abnormality of the lungs in AP projection. Abdomen Ultrasound 03/22/18 11:59 IMPRESSION: Gallstones without ultrasound evidence of acute cholecystitis. No biliary ductal dilatation. No gallbladder wall thickening. No pericholecystic fluid. Negative sonographic Rodriguez's sign. Chest/Abdomen CTA 03/23/18 00:00 IMPRESSION: 1. Limited study. 2. Cardiomegaly. 3. No central pulmonary embolus. Renal Ultrasound 03/25/18 00:00 IMPRESSION: NORMAL RENAL AND BLADDER ULTRASOUND. Assessment & Plan - Diagnosis (1) Sepsis Qualifiers: Sepsis type: Escherichia coli Qualified Code(s): A41.51 - Sepsis due to Escherichia coli [E. coli] Is this a current diagnosis for this admission?: Yes Plan: Resolved. Leukocytosis has resolved, lactic acid is normal at 1.4, and the patient has been afebrile for >48 hours, though with slightly low blood pres sures. The patient was admitted with sepsis secondary to E. coli urinary tract infection, present on admission, evidenced by an elevated lactic acid level, elevated WBC, fever, tachycardia, and tachypnea. The patient was initially placed on IV Rocephin and Levaquin; this was changed to Invanz due to continued high fevers, elevated lactic acid, and leukocytosis. She was supported with gentle IV fluids secondary to her CHF. Fortunately, blood cultures have remained negative and her urine culture grew pansensitive E. coli. IV antibiotics were continued until the patient had been afebrile for greater than 48 hours. Continue p.o. Ceftin. (2) Hyponatremia Is this a current diagnosis for this admission?: Yes Plan: Stabilized at 129.7. Sodium 139.5 on admission, trended down to 127.9. Likely secondary to fluid volume overload in the setting of sepsis required IV fluids. Serum Osmo 283, Urine Osmo 332. Urine sodium 32 Holding diuretics. Patient is fluid restricted to 1 L daily. Nephrology is consulted; appreciate their evaluation recommendations. (3) FELICIA (acute kidney injury) Is this a current diagnosis for this admission?: Yes Plan: Worsened today; Cr up to 1.74 Most likely secondary to IV contrast dye induced ATN. Possibly also complicated by UTI, sepsis, and likely underlying CKD from poorly controlled diabetes mellitus. Creatinine on admission 1.09. Unknown baseline. Nephrology has been consulted; appreciate their assistance. Avoid nephrotoxic medications as able. Holding diuretics (furosemide, metolazone, spironolactone). Pyridium (post marketing reports of acute renal failure) and Reglan discontinued. (4) CHF (congestive heart failure) Is this a current diagnosis for this admission?: Yes Plan: Patient endorses a history of CHF. She does not appear to be volume overloaded on exam. Chest x-ray revealed cardiomegaly without pleural effusions. proBNP elevated to 7450; unknown baseline. Home medication regiment includes: 2.5 mg daily, Lasix 40 mg twice daily, and spironolactone 25 mg daily; holding diuretics secondary to FELICIA. She is on a cardiac diet. Daily weights with strict I&O's. (5) Diabetes 1.5, managed as type 2 Is this a current diagnosis for this admission?: Yes Plan: A1c 10.5% The patient is placed on a consistent carb diet with Accu-Cheks before meals and at bedtime. Lantus 30 units twice daily with Humalog for sliding scale coverage. Registered dietitian and early childhood special educator consulted. (6) HTN (hypertension) Is this a current diagnosis for this admission?: Yes Plan: Blood pressure somewhat labile; though slightly improved today. 90/70-120/80 today. Hydralazine was decreased from 50 mg to 25 mg 3 times daily. Continue Coreg and isosorbide unchanged. Holding metolazone, furosemide, and spironolactone secondary to AK I. (7) Morbid obesity Is this a current diagnosis for this admission?: Yes Plan: Dietary discretion is advised. Registered dietitian and early childhood special educator consulted. Out of bed 3 times daily. Ambulate in the hallways with pulse oximetry every shift. (8) Sleep apnea Is this a current diagnosis for this admission?: Yes Plan: CPAP nightly. Avoid sedating medications. (9) Urinary tract infection Qualifiers: Urinary tract infection type: site unspecified Hematuria presence: without hematuria Qualified Code(s): N39.0 - Urinary tract infection, site not specified Is this a current diagnosis for this admission?: Yes Plan: The patient was initially placed on Rocephin and Levaquin; this was transitioned to IV Invanz due to persistent fever. Urine cultures have now resulted pansensitive E. coli; she has been placed on p.o. Ceftin. Blood cultures (one set) with pansensitive E. coli. (10) Shortness of breath Is this a current diagnosis for this admission?: Yes Plan: Improved. The patient is now maintaining oxygen saturations at rest and while ambulatory on room air. Will decrease BiPAP to CPAP support overnight tonight. Will assess repeat ABG tomorrow morning. - Time Time Spent with patient: 25-34 minutes Anticipated discharge: Home Within: Other - pending nephrology's recommendations; anticipate an additional 48-72 hours.
[2018-03-27 15:01] LABS: ARTERIAL BLOOD BASE EXCESS 6.8 mmol/L; ARTERIAL BLOOD FIO2 21; ARTERIAL BLOOD H2CO3 1.69 mmol/L (1.05-1.35); ARTERIAL BLOOD HCO3 33.6 mmol/L (20-24); ARTERIAL BLOOD O2 SATURATION 89.5 % (94-98); ARTERIAL BLOOD PCO2 56.2 mmHg (35-45); ARTERIAL BLOOD PH 7.39 (7.35-7.45); ARTERIAL BLOOD PO2 58.2 mmHg (80-100); ARTERIAL BLOOD TOTAL CO2 35.3 mmol/L (21-25)
[2018-03-27] MEDS ORDERED: NORMAL SALINE 1000 ML 1,000 ML IV PRN (15:43)
--- NOTE | 2018-03-27 16:50 | PDOC PROGRESS REPORT ---
Subjective Progress Note for:: 03/27/18 Reason For Visit: Patient seen today in the hospital. Here with E. coli UTI and bacteremia. She is also got worsening of COPD. During hospitalization she also has had contrast-induced nephropathy and hyponatremia. Patient is impatient to go home as she has a plane to catch to go to [place] on the as she lives there. She denies any history of chest pain and denies shortness of breath even though she was on the BiPAP. No complaints of any fever or chills. No history of nausea vomiting. Poor appetite. Labs and medications were reviewed with the patient. Physical Exam Vital Signs: Temp Pulse Resp BP Pulse Ox 97.8 F 87 16 124/78 97 03/27/18 11:56 03/27/18 14:50 03/27/18 14:50 03/27/18 14:50 03/27/18 14:50 Intake & Output 03/26/18 03/27/18 03/28/18 06:59 06:59 06:59 Intake Total 973 559 115 Output Total 500 300 Balance 973 59 -185 Weight 128.5 kg 128.7 kg General appearance: PRESENT: no acute distress Respiratory exam: PRESENT: clear to auscultation aime, decreased breath sounds. ABSENT: crackles Cardiovascular exam: PRESENT: +S1, +S2 GI/Abdominal exam: PRESENT: normal bowel sounds, soft. ABSENT: ascites, organomegaly, tenderness Extremities exam: ABSENT: pedal edema Neurological exam: PRESENT: alert, awake, oriented to person, oriented to place Psychiatric exam: PRESENT: anxious Skin exam: PRESENT: dry. ABSENT: cyanosis, erythema, rash Results Laboratory Results: 03/26/18 05:09 03/27/18 05:07 03/26/18 03/27/18 03/27/18 16:50 05:07 10:50 Carbonic Acid HCO3/H2CO3 Ratio ABG pH ABG pCO2 ABG pO2 ABG HCO3 ABG O2 Saturation ABG Base Excess FiO2 Sodium 129.7 L Potassium 4.3 Chloride 87 L Carbon Dioxide 30 Anion Gap 13 BUN 58 H Creatinine 1.74 H Est GFR ( Amer) 38 L Est GFR (Non-Af Amer) 31 L Glucose 170 H Calcium 7.9 L Urine Color RADHA Urine Appearance CLEAR Urine pH 5.0 Ur Specific [place] 1.014 Urine Protein NEGATIVE Urine Glucose (UA) NEGATIVE Urine Ketones NEGATIVE Urine Blood NEGATIVE Urine Nitrite POSITIVE H Ur Leukocyte Esterase NEGATIVE Urine WBC (Auto) 3 Urine RBC (Auto) 2 Urine Osmolality 332 03/27/18 14:34 Carbonic Acid 1.69 H HCO3/H2CO3 Ratio 19:1 ABG pH 7.39 ABG pCO2 56.2 H ABG pO2 58.2 L ABG HCO3 33.6 H ABG O2 Saturation 89.5 L ABG Base Excess 6.8 FiO2 21 Sodium Potassium Chloride Carbon Dioxide Anion Gap BUN Creatinine Est GFR ( Amer) Est GFR (Non-Af Amer) Glucose Calcium Urine Color Urine Appearance Urine pH Ur Specific [place] Urine Protein Urine Glucose (UA) Urine Ketones Urine Blood Urine Nitrite Ur Leukocyte Esterase Urine WBC (Auto) Urine RBC (Auto) Urine Osmolality 03/22/18 13:40 Blood Blood Culture - Final NO GROWTH IN 5 DAYS 03/22/18 03/25/18 11:00 05:19 CK-MB (CK-2) 0.39 Troponin I 0.070 NT-Pro-B Natriuret Pep 7890 H 7450 H Impressions: Chest X-Ray 03/22/18 10:50 IMPRESSION: Cardiomegaly without acute abnormality of the lungs in AP projecti on. Abdomen Ultrasound 03/22/18 11:59 IMPRESSION: Gallstones without ultrasound evidence of acute cholecystitis. No biliary ductal dilatation. No gallbladder wall thickening. No pericholecystic fluid. Negative sonographic Rodriguez's sign. Chest/Abdomen CTA 03/23/18 00:00 IMPRESSION: 1. Limited study. 2. Cardiomegaly. 3. No central pulmonary embolus. Renal Ultrasound 03/25/18 00:00 IMPRESSION: NORMAL RENAL AND BLADDER ULTRASOUND. Assessment & Plan - Diagnosis (1) FELICIA (acute kidney injury) Is this a current diagnosis for this admission?: Yes Plan: Apparently nonoliguric. No strict I's and O's are being. Admission creatinine was 1.0. Creatinine worsening to 1.7 from previous 1.3. Plan for gentle hydration. Monitor. (2) CHF (congestive heart failure) Is this a current diagnosis for this admission?: Yes Plan: Currently compensated and stable. Monitor. (3) Diabetes 1.5, managed as type 2 Is this a current diagnosis for this admission?: Yes Plan: Advised tight control (4) HTN (hypertension) Is this a current diagnosis for this admission?: Yes Plan: Well-controlled. (5) Hyponatremia Is this a current diagnosis for this admission?: Yes Plan: Stable with no worsening. Monitor. (6) Morbid obesity Is this a current diagnosis for this admission?: Yes Plan: Advised the need to lose weight in the long-term. (7) Sepsis Qualifiers: Sepsis type: Escherichia coli Qualified Code(s): A41.51 - Sepsis due to Escherichia coli [E. coli] Is this a current diagnosis for this admission?: Yes Plan: E. coli UTI and bacteremia. Currently on antibiotics. No evidences of any sepsis at the moment.
[2018-03-27] MEDS ORDERED: 1/2 NORMAL SALINE 1,000 ML IV PRN (18:30)
[2018-03-28] MEDS: HYDROCODONE/ACETAMINOPHEN 5-325 MG TABLET PO PRN ×2 (02:36→08:38)
[2018-03-28] MEDS: CYCLOBENZAPRINE HCL 10 MG TABLET PO PRN (02:36)
[2018-03-28 05:58] LABS: ANION GAP 10 (5-19); BLOOD UREA NITROGEN 57 mg/dL (7-20); CALCIUM 8.2 mg/dL (8.4-10.2); CARBON DIOXIDE 34 mmol/L (22-30); CHLORIDE 89 mmol/L (98-107); GLUCOSE 194 mg/dL (75-110); POTASSIUM 3.5 mmol/L (3.6-5.0); SODIUM 133.2 mmol/L (137-145)
[2018-03-28 06:29] LABS: ARTERIAL BLOOD FIO2 28%; ARTERIAL BLOOD H2CO3 1.94 mmol/L (1.05-1.35); ARTERIAL BLOOD HCO3 38.7 mmol/L (20-24); ARTERIAL BLOOD O2 SATURATION 88.9 % (94-98); ARTERIAL BLOOD PCO2 64.3 mmHg (35-45); ARTERIAL BLOOD PO2 57.4 mmHg (80-100); ARTERIAL BLOOD TOTAL CO2 40.6 mmol/L (21-25)
[2018-03-28] MEDS: ISOSORBIDE DINITRATE 20 MG TABLET PO SCH ×3 (06:36→22:23)
[2018-03-28] MEDS: BUDESONIDE NEB 0.5 MG/2 ML AMPUL NEB SCH ×2 (07:48→19:20)
[2018-03-28] MEDS: IPRATROPIUM BROMIDE 0.02% NEB 0.5 MG/2.5 ML AMPUL NEB SCH ×3 (07:48→23:30)
[2018-03-28] MEDS: LEVALBUTEROL HCL NEB 1.25 MG/3 ML AMPUL NEB SCH ×3 (07:48→23:30)
[2018-03-28] MEDS: HYDRALAZINE HCL 50 MG TABLET PO SCH ×2 (08:12→14:51)
--- NOTE | 2018-03-28 10:08 | PDOC PROGRESS REPORT ---
Subjective Progress Note for:: 03/28/18 Reason For Visit: She is feeling a whole lot better today. Shortness of breath is also improved. Denies any history of chest pain, fever or chills. Labs and medications were reviewed with the patient. It shows improved sodium to 133 and improving creatinine now. Physical Exam Vital Signs: Temp Pulse Resp BP Pulse Ox 97.7 F 80 18 118/65 100 03/28/18 07:32 03/28/18 07:32 03/28/18 07:32 03/28/18 07:32 03/28/18 07:32 Intake & Output 03/27/18 03/28/18 03/29/18 06:59 06:59 06:59 Intake Total 559 952 Output Total 500 1450 Balance 59 -498 Weight 128.7 kg 129.1 kg General appearance: PRESENT: no acute distress Respiratory exam: PRESENT: clear to auscultation aime, decreased breath sounds. ABSENT: crackles Cardiovascular exam: PRESENT: +S1, +S2 GI/Abdominal exam: PRESENT: normal bowel sounds, soft. ABSENT: ascites, organomegaly, tenderness Neurological exam: PRESENT: alert, awake, oriented to person, oriented to place Results Laboratory Results: 03/26/18 05:09 03/28/18 04:56 03/27/18 03/27/18 03/28/18 10:50 14:34 04:56 Carbonic Acid 1.69 H HCO3/H2CO3 Ratio 19:1 ABG pH 7.39 ABG pCO2 56.2 H ABG pO2 58.2 L ABG HCO3 33.6 H ABG O2 Saturation 89.5 L ABG Base Excess 6.8 FiO2 21 Sodium 133.2 L Potassium 3.5 L Chloride 89 L Carbon Dioxide 34 H Anion Gap 10 BUN 57 H Creatinine 1.26 H Est GFR ( Amer) 55 L Est GFR (Non-Af Amer) 45 L Glucose 194 H Calcium 8.2 L Urine Color RADHA Urine Appearance CLEAR Urine pH 5.0 Ur Specific [place] 1.014 Urine Protein NEGATIVE Urine Glucose (UA) NEGATIVE Urine Ketones NEGATIVE Urine Blood NEGATIVE Urine Nitrite POSITIVE H Ur Leukocyte Esterase NEGATIVE Urine WBC (Auto) 3 Urine RBC (Auto) 2 03/28/18 06:25 Carbonic Acid 1.94 H HCO3/H2CO3 Ratio 19:1 ABG pH 7.40 ABG pCO2 64.3 H ABG pO2 57.4 L ABG HCO3 38.7 H ABG O2 Saturation 88.9 L ABG Base Excess 11.0 FiO2 28% Sodium Potassium Chloride Carbon Dioxide Anion Gap BUN Creatinine Est GFR ( Amer) Est GFR (Non-Af Amer) Glucose Calcium Urine Color Urine Appearance Urine pH Ur Specific [place] Urine Protein Urine Glucose (UA) Urine Ketones Urine Blood Urine Nitrite Ur Leukocyte Esterase Urine WBC (Auto) Urine RBC (Auto) 03/26/18 16:30 Sputum Gram Stain - Final 03/26/18 16:30 Sputum Sputum Culture - Final C.albicans/C.dubliniensis Greatly Reduced Normal Maritza 03/22/18 13:40 Blood Blood Culture - Final NO GROWTH IN 5 DAYS 03/22/18 03/25/18 11:00 05:19 CK-MB (CK-2) 0.39 Troponin I 0.070 NT-Pro-B Natriuret Pep 7890 H 7450 H Impressions: Chest X-Ray 03/22/18 10:50 IMPRESSION: Cardiomegaly without acute abnormality of the lungs in AP projecti on. Abdomen Ultrasound 03/22/18 11:59 IMPRESSION: Gallstones without ultrasound evidence of acute cholecystitis. No biliary ductal dilatation. No gallbladder wall thickening. No pericholecystic fluid. Negative sonographic Rodriguez's sign. Chest/Abdomen CTA 03/23/18 00:00 IMPRESSION: 1. Limited study. 2. Cardiomegaly. 3. No central pulmonary embolus. Renal Ultrasound 03/25/18 00:00 IMPRESSION: NORMAL RENAL AND BLADDER ULTRASOUND. Assessment & Plan - Diagnosis (1) FELICIA (acute kidney injury) Is this a current diagnosis for this admission?: Yes Plan: Nonoliguric secondary to ANNA. Currently improving. Monitor. (2) CHF (congestive heart failure) Is this a current diagnosis for this admission?: Yes Plan: Currently compensated and stable. Monitor. (3) Diabetes 1.5, managed as type 2 Is this a current diagnosis for this admission?: Yes Plan: Advised tight control (4) HTN (hypertension) Is this a current diagnosis for this admission?: Yes Plan: Well-controlled. (5) Hyponatremia Is this a current diagnosis for this admission?: Yes Plan: Improving as latest sodium is now 133. (6) Morbid obesity Is this a current diagnosis for this admission?: Yes (7) Sepsis Qualifiers: Sepsis type: Escherichia coli Qualified Code(s): A41.51 - Sepsis due to Escherichia coli [E. coli] Is this a current diagnosis for this admission?: Yes
[2018-03-28] MEDS: POTASSIUM CHLORIDE 10 MEQ CAPSULE.ER PO SCH (10:12)
[2018-03-28] MEDS: FAMOTIDINE 20 MG TABLET PO SCH ×2 (10:12→22:23)
[2018-03-28] MEDS: ASPIRIN 81 MG TABLET, ENT COATED PO SCH (10:12)
[2018-03-28] MEDS: CARVEDILOL 12.5 MG TABLET PO SCH ×2 (10:12→22:23)
[2018-03-28] MEDS: CALCIUM CARBONATE 250 MG/VITAMIN D3 125 UNIT TABLET PO SCH (10:13)
[2018-03-28] MEDS: GUAIFENESIN 600 MG TABLET.SA PO SCH ×2 (10:13→22:23)
[2018-03-28] MEDS: INSULIN GLARGINE,HUM.REC.ANLOG 1,000 UNIT/10 ML UNIT SUBCUT SCH ×2 (10:18→17:13)
[2018-03-28] MEDS: ENOXAPARIN SODIUM INJ 40 MG/0.4 ML DISP.SYRIN SUBCUT SCH (10:18)
[2018-03-28] MEDS: CEFUROXIME 250 MG TABLET PO SCH ×2 (10:31→22:24)
--- NOTE | 2018-03-28 14:15 | RADIOLOGY REPORT (SQ) ---
EXAM DESCRIPTION: CHEST SINGLE VIEW COMPLETED DATE/TIME: 03/28/2018 2:02 pm REASON FOR STUDY: Dyspnea, hypoxia COMPARISON: 03/22/2018. NUMBER OF VIEWS: One view. TECHNIQUE: Single frontal radiographic view of the chest acquired. LIMITATIONS: None. FINDINGS: LUNGS AND PLEURA: No opacities, masses or pneumothorax. No pleural effusion. MEDIASTINUM AND HILAR STRUCTURES: No masses. Contour normal. HEART AND VASCULAR STRUCTURES: Heart enlarged without failure. Normal vasculature. BONES: No acute findings. Old rib fractures. HARDWARE: None in the chest. OTHER: No other significant finding. IMPRESSION: HEART ENLARGED WITHOUT FAILURE. NO OTHER SIGNIFICANT RADIOGRAPHIC FINDING IN THE CHEST. TECHNICAL DOCUMENTATION: JOB ID: [id number] [employer]- All Rights Reserved Reading location - IP/workstation name: [email or web address]
--- NOTE | 2018-03-28 16:53 | PDOC PROGRESS REPORT ---
Subjective Progress Note for:: 03/28/18 Subjective:: TRENA BENITEZ is a 47 year old female with history of diabetes mellitus morbid obesity, hypertension, hyperlipidemia, congestive heart failure osteoarthritis, obstructive sleep apnea admitted 03/22/18 with sepsis, UTI, and elevated LFTs found to have cholelithiasis. The patient was seen on morning rounds. She was found resting in bed comfortably on supplemental oxygen via nasal cannula. The patient is again withdrawn, minimally conversational, does not make eye contact, and mumbles when answering her questions. After discussing the patient's care with pulmonology, the plan of care was presented to the patien: increase BiPAP support in effort to lower CO2 retention and provide stability for discharge with oxygen on the day of her flight back home to [place]. Upon arrival, she would need to immediately follow-up with a healthcare provider to make arrangements for BiPAP as she is now BiPAP dependent and her home CPAP machine will no longer provide enough support. The patient became highly agitated and stated that she was leaving AGAINST MEDICAL ADVICE. Nursing reached out to the patient's son, who advised that she does not actually have a flight to [place] scheduled for March 31 as she had indicated but instead is to fly home April 17. After speaking with his mother, the patient agreed to remain for further care. Discharge planning is updated on the difficult discharge situation the patient now finds herself in. She will need short-term home oxygen and BiPAP support while here in [place] prior to returning to [place]. Will need to update Dr. Fink (pulmonology) tomorrow regarding the change in discharge disposition. She denies fever, chills, headache, chest pain, palpitations, dyspnea at rest, orthopnea, cough, abdominal pain, nausea vomiting and diarrhea. No concerns per nursing. Reason For Visit: PNEUMONIA Physical Exam Vital Signs: Temp Pulse Resp BP Pulse Ox 98.1 F 81 20 102/62 95 03/28/18 11:04 03/28/18 14:00 03/28/18 11:04 03/28/18 11:04 03/28/18 11:04 Intake & Output 03/27/18 03/28/18 03/29/18 06:59 06:59 06:59 Intake Total 559 952 150 Output Total 500 1450 500 Balance 59 -498 -350 Weight 128.7 kg 129.1 kg General appearance: PRESENT: no acute distress, morbidly obese, well-developed, well-nourished. ABSENT: cooperative Head exam: PRESENT: atraumatic, normocephalic Eye exam: PRESENT: conjunctiva pink, EOMI, PERRLA. ABSENT: scleral icterus Ear exam: PRESENT: normal external ear exam Mouth exam: PRESENT: moist, tongue midline Neck exam: ABSENT: carotid bruit, JVD, lymphadenopathy, thyromegaly Respiratory exam: PRESENT: clear to auscultation aime, decreased breath sounds - Secondary to body habitus and poor patient participation, prolonged expiratory phas, symmetrical, unlabored. ABSENT: rales, rhonchi, wheezes Cardiovascular exam: PRESENT: RRR. ABSENT: diastolic murmur, rubs, systolic murmur Pulses: PRESENT: normal dorsalis pedis pul Vascular exam: PRESENT: normal capillary refill GI/Abdominal exam: PRESENT: normal bowel sounds, soft. ABSENT: distended, guar ding, mass, organolmegaly, rebound, tenderness Rectal exam: PRESENT: deferred Extremities exam: PRESENT: full ROM. ABSENT: calf tenderness, clubbing, pedal edema Neurological exam: PRESENT: alert, awake, oriented to person, oriented to place, oriented to time, oriented to situation, CN II-XII grossly intact. ABSENT: motor sensory deficit Psychiatric exam: PRESENT: agitated, appropriate affect. ABSENT: homicidal ideation, suicidal ideation Skin exam: PRESENT: dry, intact, warm. ABSENT: cyanosis, rash Results Laboratory Results: 03/26/18 05:09 03/28/18 04:56 03/28/18 03/28/18 04:56 06:25 Carbonic Acid 1.94 H HCO3/H2CO3 Ratio 19:1 ABG pH 7.40 ABG pCO2 64.3 H ABG pO2 57.4 L ABG HCO3 38.7 H ABG O2 Saturation 88.9 L ABG Base Excess 11.0 FiO2 28% Sodium 133.2 L Potassium 3.5 L Chloride 89 L Carbon Dioxide 34 H Anion Gap 10 BUN 57 H Creatinine 1.26 H Est GFR ( Amer) 55 L Est GFR (Non-Af Amer) 45 L Glucose 194 H Calcium 8.2 L 03/26/18 16:30 Sputum Gram Stain - Final 03/26/18 16:30 Sputum Sputum Culture - Final C.albicans/C.dubliniensis Greatly Reduced Normal Maritza 03/22/18 13:40 Blood Blood Culture - Final NO GROWTH IN 5 DAYS 03/22/18 03/25/18 11:00 05:19 CK-MB (CK-2) 0.39 Troponin I 0.070 NT-Pro-B Natriuret Pep 7890 H 7450 H Impressions: Abdomen Ultrasound 03/22/18 11:59 IMPRESSION: Gallstones without ultrasound evidence of acute cholecystitis. No biliary ductal dilatation. No gallbladder wall thickening. No pericholecystic fluid. Negative sonographic Rodrgiuez's sign. Chest/Abdomen CTA 03/23/18 00:00 IMPRESSION: 1. Limited study. 2. Cardiomegaly. 3. No central pulmonary embolus. Renal Ultrasound 03/25/18 00:00 IMPRESSION: NORMAL RENAL AND BLADDER ULTRASOUND. Chest X-Ray 03/28/18 07:00 IMPRESSION: HEART ENLARGED WITHOUT FAILURE. NO OTHER SIGNIFICANT RADIOGRAPHIC FINDING IN THE CHEST. Assessment & Plan - Diagnosis (1) Sepsis Qualifiers: Sepsis type: Escherichia coli Qualified Code(s): A41.51 - Sepsis due to Escherichia coli [E. coli] Is this a current diagnosis for this admission?: Yes Plan: Resolved. Leukocytosis has resolved, lactic acid is normal at 1.4, and the patient has been afebrile for >48 hours, and is now normotensive. The patient was admitted with sepsis secondary to E. coli urinary tract infection, present on admission, evidenced by an elevated lactic acid level, elevated WBC, fever, tachycardia, and tachypnea. The patient was initially placed on IV Rocephin and Levaquin; this was changed to Invanz due to continued high fevers, elevated lactic acid, and leukocytosis. She was supported with gentle IV fluids secondary to her CHF. Fortunately, blood cultures have remained negative and her urine culture grew pansensitive E. coli. IV antibiotics were continued until the patient had been afebrile for greater than 48 hours. Continue p.o. Ceftin. Day #09/20 (2) Hyponatremia Is this a current diagnosis for this admission?: Yes Plan: Improved. Sodium 139.5 on admission, trended down to 127.9, now 133.2 Likely secondary to fluid volume overload in the setting of sepsis required IV fluids. Serum Osmo 283, Urine Osmo 332. Urine sodium 32 Holding diuretics. Patient is fluid restricted to 1 L daily. Nephrology is consulted; appreciate their evaluation recommendations. (3) FELICIA (acute kidney injury) Is this a current diagnosis for this admission?: Yes Plan: Gradual improvement; Cr down to 1.26 Most likely secondary to IV contrast dye induced ATN. Possibly also complicated by UTI, sepsis, and likely underlying CKD from poorly controlled diabetes mellitus. Creatinine on admission 1.09. Unknown baseline. Nephrology has been consulted; appreciate their assistance. Avoid nephrotoxic medications as able. Holding diuretics (furosemide, metolazone, spironolactone). Pyridium (post marketing reports of acute renal failure) and Reglan discontinued. (4) CHF (congestive heart failure) Is this a current diagnosis for this admission?: Yes Plan: Patient endorses a history of CHF. She does not appear to be volume overloaded on exam. Chest x-ray revealed cardiomegaly without pleural effusions. Repeat chest x-ray today is benign. proBNP elevated to 7450; unknown baseline. Home medication regiment includes: Metolazone 2.5 mg daily, Lasix 40 mg twice daily, and spironolactone 25 mg daily; holding diuretics secondary to FELICIA. Tiffanie ht is stable. She is on a cardiac diet. Daily weights with strict I&O's. (5) Diabetes 1.5, managed as type 2 Is this a current diagnosis for this admission?: Yes Plan: A1c 10.5% The patient is placed on a consistent carb diet with Accu-Checks before meals and at bedtime. Lantus 30 units twice daily with Humalog for sliding scale coverage. Registered dietitian and certified breastfeeding educator consulted. (6) HTN (hypertension) Is this a current diagnosis for this admission?: Yes Plan: Blood pressure improved today. Hydralazine discontinued secondary to persistently low normal blood pressures. Continue Coreg and isosorbide unchanged. Holding metolazone, furosemide, and spironolactone secondary to AK I. (7) Urinary tract infection Qualifiers: Urinary tract infection type: site unspecified Hematuria presence: without hematuria Qualified Code(s): N39.0 - Urinary tract infection, site not specified Is this a current diagnosis for this admission?: Yes Plan: The patient was initially placed on Rocephin and Levaquin; this was transitioned to IV Invanz due to persistent fever. Urine cultures have now resulted pansensitive E. coli; she has been placed on p.o. Ceftin. Blood cultures (one set) with pansensitive E. coli. (8) Obesity hypoventilation syndrome Is this a current diagnosis for this admission?: Yes Plan: Patient with acute worsening of chronic respiratory failure. Likely approaching her baseline. She remains oxygen dependent on nasal cannula at 2.5 lpm and BiPAP when sleeping. Pulmonology has been consulted; appreciate their assistance in stabilizing the patient's chronic respiratory status so that she may keep her return flight to [place] (initially believed to be 03/31, confirmed today to actually be April 17). Discharge planning is consulted to assist with her complicated discharge needs. Out of bed 3 times daily, ambulate in the hallways with staff and oxygen daily. Supplemental oxygen and BiPAP as needed. (9) Sleep apnea Is this a current diagnosis for this admission?: Yes Plan: BiPAP nightly. Avoid sedating medications. (10) Morbid obesity Is this a current diagnosis for this admission?: Yes Plan: Dietary discretion is advised. Registered dietitian and certified breastfeeding educator consulted. Out of bed 3 times daily. Ambulate in the hallways with pulse oximetry every shift. - Time Time Spent with patient: 35 or more minutes Medications reviewed and adjusted accordingly: Yes Anticipated discharge: Home
[2018-03-29 05:01] LABS: HEMATOCRIT 42.9 % (36.0-47.0); HEMOGLOBIN 13.8 g/dL (12.0-15.5); MEAN CORPUSCULAR HEMOGLOBIN 26.1 pg (27.0-33.4); MEAN CORPUSCULAR HGB CONC 32.2 g/dL (32.0-36.0); MEAN CORPUSCULAR VOLUME 81 fl (80-97); PLATELET COUNT 289 10^3/uL (150-450); RED BLOOD COUNT 5.27 10^6/uL (3.72-5.28); RED CELL DISTRIBUTION WIDTH 15.4 % (11.5-14.0); WHITE BLOOD COUNT 11.5 10^3/uL (4.0-10.5)
[2018-03-29 05:21] LABS: ANION GAP 7 (5-19); BLOOD UREA NITROGEN 47 mg/dL (7-20); CALCIUM 8.4 mg/dL (8.4-10.2); CARBON DIOXIDE 37 mmol/L (22-30); CHLORIDE 92 mmol/L (98-107); GLUCOSE 120 mg/dL (75-110); POTASSIUM 3.8 mmol/L (3.6-5.0); SODIUM 136.3 mmol/L (137-145)
[2018-03-29] MEDS: ISOSORBIDE DINITRATE 20 MG TABLET PO SCH ×3 (05:38→22:16)
[2018-03-29 06:49] LABS: ARTERIAL BLOOD BASE EXCESS 15.1 mmol/L; ARTERIAL BLOOD HCO3 43.2 mmol/L (20-24); ARTERIAL BLOOD O2 SATURATION 94.1 % (94-98); ARTERIAL BLOOD PH 7.41 (7.35-7.45); ARTERIAL BLOOD PO2 72.6 mmHg (80-100); ARTERIAL BLOOD TOTAL CO2 45.4 mmol/L (21-25)
[2018-03-29 06:50] LABS: ARTERIAL BLOOD FIO2 30%; ARTERIAL BLOOD PCO2 69.9 mmHg (35-45)
[2018-03-29] MEDS: BUDESONIDE NEB 0.5 MG/2 ML AMPUL NEB SCH ×2 (08:19→20:36)
[2018-03-29] MEDS: LEVALBUTEROL HCL NEB 1.25 MG/3 ML AMPUL NEB SCH ×2 (08:19→16:25)
[2018-03-29] MEDS: IPRATROPIUM BROMIDE 0.02% NEB 0.5 MG/2.5 ML AMPUL NEB SCH ×2 (08:19→16:25)
[2018-03-29] MEDS: CEFUROXIME 250 MG TABLET PO SCH ×2 (09:23→22:18)
[2018-03-29] MEDS: GUAIFENESIN 600 MG TABLET.SA PO SCH ×2 (09:23→22:17)
[2018-03-29] MEDS: CALCIUM CARBONATE 250 MG/VITAMIN D3 125 UNIT TABLET PO SCH (09:23)
[2018-03-29] MEDS: POTASSIUM CHLORIDE 10 MEQ CAPSULE.ER PO SCH (09:24)
[2018-03-29] MEDS: ASPIRIN 81 MG TABLET, ENT COATED PO SCH (09:24)
[2018-03-29] MEDS: CARVEDILOL 12.5 MG TABLET PO SCH ×2 (09:25→22:17)
[2018-03-29] MEDS: INSULIN GLARGINE,HUM.REC.ANLOG 1,000 UNIT/10 ML UNIT SUBCUT SCH ×2 (09:25→17:27)
[2018-03-29] MEDS: FAMOTIDINE 20 MG TABLET PO SCH ×2 (09:25→22:17)
[2018-03-29] MEDS: ENOXAPARIN SODIUM INJ 40 MG/0.4 ML DISP.SYRIN SUBCUT SCH (09:27)
[2018-03-29 09:41] LABS: FREE T3 3.13 pg/mL (2.77-5.27); FREE T4 (FREE THYROXINE) 1.35 ng/dL (0.78-2.19)
[2018-03-29 09:54] LABS: THYROID STIMULATING HORMONE 5.78 uIU/mL (0.47-4.68)
--- NOTE | 2018-03-29 14:57 | PDOC PROGRESS REPORT ---
Subjective Progress Note for:: 03/29/18 Subjective:: TRENA BENITEZ is a 47 year old female with history of diabetes mellitus morbid obesity, hypertension, hyperlipidemia, congestive heart failure osteoarthritis, obstructive sleep apnea admitted 03/22/18 with sepsis, UTI, and elevated LFTs found to have cholelithiasis. The patient was seen on morning rounds. She was initially found sitting up to the edge of her bed on supplemental oxygen by nasal cannula eating her breakfast. She appeared to be alert and oriented x4 today she was somewhat withdrawn and did not engage fully in the conversation until I asked to speak with her daughter in [place] whom she lives with. The patient appeared to be confused regarding her home oxygen equipment; she possibly has a concentrator and portable tank at home, it is unclear whether or not she has CPAP or BiPAP. She states that she brought her BRENDAN machine with her to [place] but did not bring her home O2 as she did not think that she required it. I returned later with case management to find the patient resting supine in bed with the BiPAP mask in place, however the Velcro straps were not secured. This time, the patient was somnolent, falling asleep mid sentence, and had increased confusion though technically remained oriented. She denies fever, chills, headache, chest pain, palpitations, dyspnea at rest, orthopnea, cough, abdominal pain, nausea vomiting and diarrhea. Her only complaint is that we are unwilling to discharge her at this time. No concerns per nursing. Reason For Visit: PNEUMONIA Physical Exam Vital Signs: Temp Pulse Resp BP Pulse Ox 97.5 F 54 L 12 135/87 H 100 03/29/18 10:57 03/29/18 10:57 03/29/18 10:57 03/29/18 10:57 03/29/18 10:57 Intake & Output 03/28/18 03/29/18 03/30/18 06:59 06:59 06:59 Intake Total 952 615 387 Output Total 1450 2200 400 Balance -498 -4935 -13 Weight 129.1 kg 125.7 kg General appearance: PRESENT: no acute distress, morbidly obese, well-developed, well-nourished. ABSENT: cooperative Head exam: PRESENT: atraumatic, normocephalic Eye exam: PRESENT: conjunctiva pink, EOMI, PERRLA. ABSENT: scleral icterus Ear exam: PRESENT: normal external ear exam Mouth exam: PRESENT: moist, tongue midline Neck exam: ABSENT: carotid bruit, JVD, lymphadenopathy, thyromegaly Respiratory exam: PRESENT: clear to auscultation aime, decreased breath sounds - Secondary to body habitus and poor inspiratory effort, prolonged expiratory phas, symmetrical, unlabored. ABSENT: rales, rhonchi, wheezes Cardiovascular exam: PRESENT: RRR, +S1, +S2. ABSENT: diastolic murmur, rubs, s ystolic murmur Pulses: PRESENT: normal dorsalis pedis pul Vascular exam: PRESENT: normal capillary refill GI/Abdominal exam: PRESENT: normal bowel sounds, soft. ABSENT: distended, guarding, mass, organolmegaly, rebound, tenderness Rectal exam: PRESENT: deferred Extremities exam: PRESENT: full ROM. ABSENT: calf tenderness, clubbing, pedal edema Neurological exam: PRESENT: alert, awake, oriented to person, oriented to place, oriented to time, oriented to situation, CN II-XII grossly intact, other - Intermittent lethargy and confusion. ABSENT: motor sensory deficit Psychiatric exam: PRESENT: appropriate affect, flat affect - Withdrawn, normal mood. ABSENT: homicidal ideation, suicidal ideation Skin exam: PRESENT: dry, intact, warm. ABSENT: cyanosis, rash Results Laboratory Results: 03/29/18 04:34 03/29/18 04:34 03/29/18 03/29/18 03/29/18 04:34 04:34 04:34 WBC 11.5 H RBC 5.27 Hgb 13.8 Hct 42.9 MCV 81 MCH 26.1 L MCHC 32.2 RDW 15.4 H Plt Count 289 Carbonic Acid HCO3/H2CO3 Ratio ABG pH ABG pCO2 ABG pO2 ABG HCO3 ABG O2 Saturation ABG Base Excess FiO2 Sodium 136.3 L Potassium 3.8 Chloride 92 L Carbon Dioxide 37 H Anion Gap 7 BUN 47 H Creatinine 0.98 Est GFR ( Amer) > 60 Est GFR (Non-Af Amer) > 60 Glucose 120 H Calcium 8.4 TSH 5.78 H Free T4 1.35 Free T3 pg/mL 3.13 03/29/18 06:33 WBC RBC Hgb Hct MCV MCH MCHC RDW Plt Count Carbonic Acid 2.10 H HCO3/H2CO3 Ratio 20:1 ABG pH 7.41 ABG pCO2 69.9 H* ABG pO2 72.6 L ABG HCO3 43.2 H ABG O2 Saturation 94.1 ABG Base Excess 15.1 FiO2 30% Sodium Potassium Chloride Carbon Dioxide Anion Gap BUN Creatinine Est GFR ( Amer) Est GFR (Non-Af Amer) Glucose Calcium TSH Free T4 Free T3 pg/mL 03/26/18 16:30 Sputum Gram Stain - Final 03/26/18 16:30 Sputum Sputum Culture - Final C.albicans/C.dubliniensis Greatly Reduced Normal Maritza 03/22/18 03/25/18 11:00 05:19 CK-MB (CK-2) 0.39 Troponin I 0.070 NT-Pro-B Natriuret Pep 7890 H 7450 H Impressions: Abdomen Ultrasound 03/22/18 11:59 IMPRESSION: Gallstones without ultrasound evidence of acute cholecystitis. No biliary ductal dilatation. No gallbladder wall thickening. No pericholecystic fluid. Negative sonographic Rodriguez's sign. Chest/Abdomen CTA 03/23/18 00:00 IMPRESSION: 1. Limited study. 2. Cardiomegaly. 3. No central pulmonary embolus. Renal Ultrasound 03/25/18 00:00 IMPRESSION: NORMAL RENAL AND BLADDER ULTRASOUND. Chest X-Ray 03/28/18 07:00 IMPRESSION: HEART ENLARGED WITHOUT FAILURE. NO OTHER SIGNIFICANT RADIOGRAPHIC FINDING IN THE CHEST. Assessment & Plan - Diagnosis (1) Sepsis Qualifiers: Sepsis type: Escherichia coli Qualified Code(s): A41.51 - Sepsis due to Escherichia coli [E. coli] Is this a current diagnosis for this admission?: Yes Plan: Resolved. Leukocytosis has resolved, lactic acid is normal at 1.4, and the patient has been afebrile for >48 hours, and is now normotensive. The patient was admitted with sepsis secondary to E. coli urinary tract infection, present on admission, evidenced by an elevated lactic acid level, elevated WBC, fever, tachycardia, and tachypnea. The patient was initially placed on IV Rocephin and Levaquin; this was changed to Invanz due to continued high fevers, elevated lactic acid, and leukocytosis. She was supported with gentle IV fluids secondary to her CHF. Fortunately, blood cultures have remained negative and her urine culture grew pansensitive E. coli. IV antibiotics were continued until the patient had been afebrile for greater than 48 hours. Continue p.o. Ceftin. Day #10/20 (2) Hyponatremia Is this a current diagnosis for this admission?: Yes Plan: Improved. Sodium 139.5 on admission, trended down to 127.9, now 136.3 Likely secondary to fluid volume overload in the setting of sepsis required IV fluids. Serum Osmo 283, Urine Osmo 332. Urine sodium 32 Holding diuretics. Patient is fluid restricted to 1 L daily. Nephrology is consulted; appreciate their evaluation recommendations. (3) FELICIA (acute kidney injury) Is this a current diagnosis for this admission?: Yes Plan: Resolved. Most likely secondary to IV contrast dye induced ATN. Possibly also complicated by UTI, sepsis, and likely underlying CKD from poorly controlled diabetes yossi iraheta. Creatinine on admission 1.09; now 0.98. Unknown baseline. Nephrology has been consulted; appreciate their assistance. Avoid nephrotoxic medications as able. Holding diuretics (furosemide, metolazone, spironolactone). Pyridium (post marketing reports of acute renal failure) and Reglan dis continued. (4) CHF (congestive heart failure) Is this a current diagnosis for this admission?: Yes Plan: Patient endorses a history of CHF. She does not appear to be volume overloaded on exam. Chest x-ray revealed cardiomegaly without pleural effusions. Repeat chest x-ray today is benign. proBNP elevated to 7450; unknown baseline. Home medication regiment includes: Metolazone 2.5 mg daily, Lasix 40 mg twice daily, and spironolactone 25 mg daily; holding diuretics secondary to FELICIA. Weight is stable. She is on a cardiac diet. Daily weights with strict I&O's. (5) Diabetes 1.5, managed as type 2 Is this a current diagnosis for this admission?: Yes Plan: A1c 10.5% The patient is placed on a consistent carb diet with Accu-Checks before meals and at bedtime. Lantus 30 units twice daily with Humalog for sliding scale coverage. Registered dietitian and outreach educator consulted. (6) HTN (hypertension) Is this a current diagnosis for this admission?: Yes Plan: Now normotensive. Continue Coreg and isosorbide unchanged. Holding metolazone, furosemide, and spironolactone secondary to AK I. Hydralazine discontinued (7) Urinary tract infection Qualifiers: Urinary tract infection type: site unspecified Hematuria presence: without hematuria Qualified Code(s): N39.0 - Urinary tract infection, site not specified Is this a current diagnosis for this admission?: Yes Plan: The patient was initially placed on Rocephin and Levaquin; this was transitioned to IV Invanz due to persistent fever. Urine cultures have now resulted pansensitive E. coli; she has been placed on p.o. Ceftin. Blood cultures (one set) with pansensitive E. coli. (8) Obesity hypoventilation syndrome Is this a current diagnosis for this admission?: Yes Plan: Patient with acute worsening of chronic respiratory failure. Unclear baseline hypercapnia. She remains oxygen dependent on nasal cannula at 2.5 lpm and BiPAP when sleeping. ABGs are worsening; pH 7.41, PCO2 69.9 (up from 64.3 yesterday) PO2 72.6, HCO3 43.2 Pulmonology has been consulted; appreciate their assistance in stabilizing the patient's chronic respiratory status so that she may keep her return flight to [place] (initially believed to be 03/31, confirmed today to actually be April 17). Discharge planning is consulted to assist with her complicated discharge needs. Out of bed 3 times daily, ambulate in the hallways with staff and oxygen daily. Supplemental oxygen and BiPAP as needed. BiPAP settings were adjusted yesterday; despite this, the patient's ABG appears to be worsening and she is demonstrating increased confusion and lethargy today. Although nursing reports that the patient has been compliant with BiPAP, I personally observed that she had the mask on but the Velcro straps were unsecured and later respiratory therapy called to state that they had noted that the patient frequently removes herself from BiPAP . It is likely that her ABG and hypercapnia is worsened due to noncompliance and not failure of the BiPAP device settings. The patient is so far unreceptive to education on importance of continued use. Remains FULL CODE. (9) Sleep apnea Is this a current diagnosis for this admission?: Yes Plan: BiPAP nightly. Avoid sedating medications. (10) Morbid obesity Is this a current diagnosis for this admission?: Yes Plan: Dietary discretion is advised. Registered dietitian and outreach educator consulted. Out of bed 3 times daily. Ambulate in the hallways with pulse oximetry every shift. (11) Acute on chronic respiratory failure with hypoxia and hypercapnia Is this a current diagnosis for this admission?: Yes Plan: Secondary to BRENDAN, obesity hypoventilation syndrome, medication/device noncompliance, and underlying CHF (currently compensated). Management as above. - Time Time Spent with patient: 35 or more minutes Medications reviewed and adjusted accordingly: Yes Anticipated discharge: SNF
[2018-03-29 17:18] LABS: ARTERIAL BLOOD BASE EXCESS 16.6 mmol/L; ARTERIAL BLOOD H2CO3 2.03 mmol/L (1.05-1.35); ARTERIAL BLOOD HCO3 44.5 mmol/L (20-24); ARTERIAL BLOOD O2 SATURATION 93.4 % (94-98); ARTERIAL BLOOD PCO2 67.3 mmHg (35-45); ARTERIAL BLOOD PH 7.44 (7.35-7.45); ARTERIAL BLOOD PO2 67.7 mmHg (80-100); ARTERIAL BLOOD TOTAL CO2 46.5 mmol/L (21-25)
[2018-03-29 17:20] LABS: ARTERIAL BLOOD FIO2 30%
[2018-03-29] MEDS: ACETAMINOPHEN 325 MG TABLET PO PRN (22:30)
[2018-03-30] MEDS: LEVALBUTEROL HCL NEB 1.25 MG/3 ML AMPUL NEB SCH ×2 (00:17→08:24)
[2018-03-30] MEDS: IPRATROPIUM BROMIDE 0.02% NEB 0.5 MG/2.5 ML AMPUL NEB SCH ×2 (00:17→08:24)
[2018-03-30] MEDS: ISOSORBIDE DINITRATE 20 MG TABLET PO SCH ×3 (05:26→21:48)
[2018-03-30 05:32] LABS: HEMOGLOBIN 13.3 g/dL (12.0-15.5); MEAN CORPUSCULAR HEMOGLOBIN 26.5 pg (27.0-33.4); MEAN CORPUSCULAR HGB CONC 32.4 g/dL (32.0-36.0); MEAN CORPUSCULAR VOLUME 82 fl (80-97); PLATELET COUNT 343 10^3/uL (150-450); RED BLOOD COUNT 5.02 10^6/uL (3.72-5.28); RED CELL DISTRIBUTION WIDTH 15.1 % (11.5-14.0); WHITE BLOOD COUNT 12.3 10^3/uL (4.0-10.5)
[2018-03-30 05:52] LABS: BLOOD UREA NITROGEN 40 mg/dL (7-20); CALCIUM 8.5 mg/dL (8.4-10.2); CHLORIDE 93 mmol/L (98-107); POTASSIUM 3.7 mmol/L (3.6-5.0)
[2018-03-30 05:55] LABS: ANION GAP 8 (5-19)
[2018-03-30 06:21] LABS: CARBON DIOXIDE 40 mmol/L (22-30); GLUCOSE 40 mg/dL (75-110)
[2018-03-30 06:52] LABS: ARTERIAL BLOOD BASE EXCESS 14.4 mmol/L; ARTERIAL BLOOD H2CO3 2.01 mmol/L (1.05-1.35); ARTERIAL BLOOD HCO3 42.3 mmol/L (20-24); ARTERIAL BLOOD O2 SATURATION 94.8 % (94-98); ARTERIAL BLOOD PCO2 66.8 mmHg (35-45); ARTERIAL BLOOD PH 7.42 (7.35-7.45); ARTERIAL BLOOD PO2 75.1 mmHg (80-100); ARTERIAL BLOOD TOTAL CO2 44.3 mmol/L (21-25)
[2018-03-30 06:53] LABS: ARTERIAL BLOOD FIO2 30%
[2018-03-30] MEDS: BUDESONIDE NEB 0.5 MG/2 ML AMPUL NEB SCH (08:24)
[2018-03-30] MEDS: CEFUROXIME 250 MG TABLET PO SCH ×2 (09:55→21:48)
[2018-03-30] MEDS: CARVEDILOL 12.5 MG TABLET PO SCH ×2 (09:55→21:48)
[2018-03-30] MEDS: GUAIFENESIN 600 MG TABLET.SA PO SCH (09:55)
[2018-03-30] MEDS: ASPIRIN 81 MG TABLET, ENT COATED PO SCH (09:55)
[2018-03-30] MEDS: ENOXAPARIN SODIUM INJ 40 MG/0.4 ML DISP.SYRIN SUBCUT SCH (09:56)
[2018-03-30] MEDS: CALCIUM CARBONATE 250 MG/VITAMIN D3 125 UNIT TABLET PO SCH (09:56)
[2018-03-30] MEDS: POTASSIUM CHLORIDE 10 MEQ CAPSULE.ER PO SCH (09:56)
[2018-03-30] MEDS: INSULIN GLARGINE,HUM.REC.ANLOG 1,000 UNIT/10 ML UNIT SUBCUT SCH ×2 (09:57→17:25)
[2018-03-30] MEDS: FAMOTIDINE 20 MG TABLET PO SCH ×2 (09:57→21:48)
--- NOTE | 2018-03-30 13:59 | PDOC PROGRESS REPORT ---
Subjective Progress Note for:: 03/30/18 Subjective:: TRENA BENITEZ is a 47 year old female with history of diabetes mellitus morbid obesity, hypertension, hyperlipidemia, congestive heart failure osteoarthritis, obstructive sleep apnea admitted 03/22/18 with sepsis, UTI, and elevated LFTs found to have cholelithiasis. The patient was seen on morning rounds with her son present. She is an alert and oriented x4; participating in conversation today. She states that she wishes to be discharged home. She expresses frustration that she has remained in the hospital so long, repeatedly stating that she came here to [place] to visit with her grandchildren and we have not allowed her to visit with them. The patient's son brought her home auto BiPAP device in for review. I spoke with Dr. Fink who did say that this provided the appropriate BiPAP settings. Unfortunately, it does not appear that her home device is compatible with supplemental oxygen. Discharge planning was present during the assessment; she is attempting to make arrangements for home oxygen and will now need to investigate whether or not we can provide a BiPAP for short-term basis until the patient returns to [place] in April. The patient denies fever, chills, headache, chest pain, palpitations, dyspnea at rest, orthopnea, cough, abdominal pain, nausea vomiting and diarrhea. She does appear to be fatigued and remains disinterested in our conversation and recommendations. I have asked her multiple times to get out of bed and into the recliner and to ambulate in the hallways; yet she remains lying supine in bed and tells me "I am tired of looking at you" when again encouraged today. The patient's son has no questions or concerns at this time. Nursing expresses concern with the patient's intermittent noncompliance with oxygen and BiPAP and refusal to participate in physical activity/ADLs. Reason For Visit: PNEUMONIA Physical Exam Vital Signs: Temp Pulse Resp BP Pulse Ox 97.4 F 76 16 123/81 95 03/30/18 12:00 03/30/18 12:00 03/30/18 12:00 03/30/18 12:03/30/18 12:00 Intake & Output 03/29/18 03/30/18 03/31/18 06:59 06:59 06:59 Intake Total 615 1203 473 Output Total 2200 1600 0 Balance -1585 -397 473 Weight 125.7 kg 126.4 kg General appearance: PRESENT: no acute distress, morbidly obese, well-developed, well-nourished Head exam: PRESENT: atraumatic, normocephalic Eye exam: PRESENT: conjunctiva pink, EOMI, PERRLA. ABSENT: scleral icterus Ear exam: PRESENT: normal external ear exam Mouth exam: PRESENT: moist, tongue midline Neck exam: ABSENT: carotid bruit, JVD, lymphadenopathy, thyromegaly Respiratory exam: PRESENT: clear to auscultation aime, decreased breath sounds - Poor inspiratory effort, prolonged expiratory phas, symmetrical, unlabored. ABSENT: rales, rhonchi, wheezes Cardiovascular exam: PRESENT: RRR. ABSENT: diastolic murmur, rubs, systolic murmur Pulses: PRESENT: normal dorsalis pedis pul Vascular exam: PRESENT: normal capillary refill GI/Abdominal exam: PRESENT: normal bowel sounds, soft. ABSENT: distended, guarding, mass, organolmegaly, rebound, tenderness Rectal exam: PRESENT: deferred Extremities exam: PRESENT: full ROM. ABSENT: calf tenderness, clubbing, pedal edema Neurological exam: PRESENT: alert, awake, oriented to person, oriented to place, oriented to time, oriented to situation, CN II-XII grossly intact. ABSENT: motor sensory deficit Psychiatric exam: PRESENT: appropriate affect, flat affect - Withdrawn, normal mood. ABSENT: homicidal ideation, suicidal ideation Skin exam: PRESENT: dry, intact, warm. ABSENT: cyanosis, rash Results Laboratory Results: 03/30/18 04:24 03/30/18 04:24 03/29/18 03/30/18 03/30/18 17:00 04:24 04:24 WBC 12.3 H RBC 5.02 Hgb 13.3 Hct 41.0 MCV 82 MCH 26.5 L MCHC 32.4 RDW 15.1 H Plt Count 343 Carbonic Acid 2.03 H HCO3/H2CO3 Ratio 21:1 ABG pH 7.44 ABG pCO2 67.3 H ABG pO2 67.7 L ABG HCO3 44.5 H ABG O2 Saturation 93.4 L ABG Base Excess 16.6 FiO2 30% Sodium 141.0 Potassium 3.7 Chloride 93 L Carbon Dioxide 40 H* Anion Gap 8 BUN 40 H Creatinine 0.90 Est GFR ( Amer) > 60 Est GFR (Non-Af Amer) > 60 Glucose 40 L* Calcium 8.5 03/30/18 06:40 WBC RBC Hgb Hct MCV MCH MCHC RDW Plt Count Carbonic Acid 2.01 H HCO3/H2CO3 Ratio 21:1 ABG pH 7.42 ABG pCO2 66.8 H ABG pO2 75.1 L ABG HCO3 42.3 H ABG O2 Saturation 94.8 ABG Base Excess 14.4 FiO2 30% Sodium Potassium Chloride Carbon Dioxide Anion Gap BUN Creatinine Est GFR ( Amer) Est GFR (Non-Af Amer) Glucose Calcium 03/22/18 03/25/18 03/30/18 11:00 05:19 04:24 CK-MB (CK-2) 0.39 Troponin I 0.070 NT-Pro-B Natriuret Pep 7890 H 7450 H 2020 H Impressions: Abdomen Ultrasound 03/22/18 11:59 IMPRESSION: Gallstones without ultrasound evidence of acute cholecystitis. No biliary ductal dilatation. No gallbladder wall thickening. No pericholecystic fluid. Negative sonographic Rodriguez's sign. Chest/Abdomen CTA 03/23/18 00:00 IMPRESSION: 1. Limited study. 2. Cardiomegaly. 3. No central pulmonary embolus. Renal Ultrasound 03/25/18 00:00 IMPRESSION: NORMAL RENAL AND BLADDER ULTRASOUND. Chest X-Ray 03/28/18 07:00 IMPRESSION: HEART ENLARGED WITHOUT FAILURE. NO OTHER SIGNIFICANT RADIOGRAPHIC FINDING IN THE CHEST. Assessment & Plan - Diagnosis (1) Sepsis Qualifiers: Sepsis type: Escherichia coli Qualified Code(s): A41.51 - Sepsis due to Escherichia coli [E. coli] Is this a current diagnosis for this admission?: Yes Plan: Resolved. The patient was admitted with sepsis secondary to E. coli urinary tract infection, present on admission, evidenced by an elevated lactic acid level, elevated WBC, fever, tachycardia, and tachypnea. The patient was initially placed on IV Rocephin and Levaquin; this was changed to Invanz due to continued high fevers, elevated lactic acid, and leukocytosis. She was supported with gentle IV fluids secondary to her CHF. Fortunately, blood cultures have remained negative and her urine culture grew pansensitive E. coli. IV antibiotics were continued until the patient had been afebrile for greater than 48 hours. Continue p.o. Ceftin. Day #8/14 (2) Hyponatremia Is this a current diagnosis for this admission?: Yes Plan: Resolved. Sodium 139.5 on admission, trended down to 127.9, now 141.0 Likely secondary to fluid volume overload in the setting of sepsis required IV fluids. Serum Osmo 283, Urine Osmo 332. Urine sodium 32 Holding diuretics. Patient is fluid restricted to 1 L daily. Nephrology is consulted; appreciate their evaluation recommendations. (3) FELICIA (acute kidney injury) Is this a current diagnosis for this admission?: Yes Plan: Resolved. Most likely secondary to IV contrast dye induced ATN. Possibly also complicated by UTI, sepsis, and likely underlying CKD from poorly controlled diabetes mellitus. Creatinine on admission 1.09; now 0.98. Unknown baseline. Nephrology has been consulted; appreciate their assistance. Avoid nephrotoxic medications as able. Holding diuretics (furosemide, metolazone, spironolactone). Pyridium (post marketing reports of acute renal failure) and Reglan discontinued. (4) CHF (congestive heart failure) Is this a current diagnosis for this admission?: Yes Plan: Patient endorses a history of CHF. She does not appear to be volume overloaded on exam. Chest x-ray revealed cardiomegaly without pleural effusions. Repeat chest x-ray is benign. proBNP elevated to 7450--> 2020 Home medication regiment includes: Metolazone 2.5 mg daily, Lasix 40 mg twice daily, and spironolactone 25 mg daily; holding diuretics secondary to recent FELICIA. Weight is stable. She is on a cardiac diet. Daily weights with strict I&O's. (5) Diabetes 1.5, managed as type 2 Is this a current diagnosis for this admission?: Yes Plan: A1c 10.5% The patient is placed on a consistent carb diet with Accu-Checks before meals and at bedtime. [id number] units twice daily with Humalog for sliding scale coverage. Registered dietitian and special educator consulted. (6) HTN (hypertension) Is this a current diagnosis for this admission?: Yes Plan: Now normotensive. Continue Coreg and isosorbide unchanged. Holding metolazone, furosemide, and spironolactone secondary to [place] I. Hydralazine discontinued (7) Urinary tract infection Qualifiers: Urinary tract infection type: site unspecified Hematuria presence: without hematuria Qualified Code(s): N39.0 - Urinary tract infection, site not specifi ed Is this a current diagnosis for this admission?: Yes Plan: The patient was initially placed on Rocephin and Levaquin; this was transitioned to IV Invanz due to persistent fever. Urine cultures have now resulted pansensitive E. coli; she has been placed on p.o. Ceftin. Blood cultures (one set) with pansensitive E. coli. (8) Obesity hypoventilation syndrome Is this a current diagnosis for this admission?: Yes Plan: Patient with acute worsening of chronic respiratory failure. Unclear baseline hypercapnia. She remains oxygen dependent on nasal cannula at 2.5 lpm and BiPAP when sleeping. ABGs are worsening; pH 7.41, PCO2 69.9 (up from 64.3 yesterday) PO2 72.6, HCO3 43.2 Pulmonology has been consulted; appreciate their assistance in stabilizing the patient's chronic respiratory status so that she may keep her return flight to [place] (initially believed to be 03/31, confirmed to actually be April 17). Discharge planning is consulted to assist with her complicated discharge needs. Unfortunately the patient will require oxygen at discharge and her home BiPAP device is not compatible with supplemental oxygen. Out of bed 3 times daily, ambulate in the hallways with staff and oxygen daily. Supplemental oxygen and BiPAP as needed; settings adjusted again today. (9) Sleep apnea Is this a current diagnosis for this admission?: Yes Plan: BiPAP nightly. Avoid sedating medications. (10) Morbid obesity Is this a current diagnosis for this admission?: Yes Plan: Dietary discretion is advised. Registered dietitian and special educator consulted. Out of bed 3 times daily. Ambulate in the hallways with pulse oximetry every shift. (11) Acute on chronic respiratory failure with hypoxia and hypercapnia Is this a current diagnosis for this admission?: Yes Plan: Secondary to BRENDAN, obesity hypoventilation syndrome, medication/device noncompliance, and underlying CHF (currently compensated). Management as above. (12) Subclinical hypothyroidism Is this a current diagnosis for this admission?: Yes Plan: TSH 5.78. Free T4 1.35. Free T3 3.13. Patient with clear metabolic syndrome; insulin-dependent diabetes, morbid obesity, central obesity, fatigue, flat affect (questionable underlying depression). We will start levothyroxine 50 mcg daily. - Time Time Spent with patient: 35 or more minutes Medications reviewed and adjusted accordingly: Yes
[2018-03-30 17:07] LABS: APPEARANCE,URINE SLIGHTLY-CLOUDY; BILIRUBIN,URINE NEGATIVE (NEGATIVE); COLOR,URINE YELLOW; GLUCOSE, URINE NEGATIVE (NEGATIVE); KETONES,URINE NEGATIVE (NEGATIVE); LEUKOCYTE ESTERASE,URINE SMALL (NEGATIVE); NITRITE,URINE NEGATIVE (NEGATIVE); PROTEIN,URINE 30 mg/dL (NEGATIVE); URINE SPECIFIC GRAVITY 1.015; UROBILINOGEN,URINE NEGATIVE mg/dL (<2.0)
[2018-03-30] MEDS: SALMETEROL XINAFOATE DISKUS 50 MCG/1 DOSE 28 DOSE IH SCH ×2 (18:20→21:49)
[2018-03-31] MEDS: ACETAMINOPHEN 325 MG TABLET PO PRN (01:42)
[2018-03-31 05:24] LABS: HEMATOCRIT 41.3 % (36.0-47.0); HEMOGLOBIN 13.4 g/dL (12.0-15.5); MEAN CORPUSCULAR HEMOGLOBIN 26.6 pg (27.0-33.4); MEAN CORPUSCULAR HGB CONC 32.4 g/dL (32.0-36.0); MEAN CORPUSCULAR VOLUME 82 fl (80-97); PLATELET COUNT 340 10^3/uL (150-450); RED BLOOD COUNT 5.03 10^6/uL (3.72-5.28); RED CELL DISTRIBUTION WIDTH 15.4 % (11.5-14.0); WHITE BLOOD COUNT 11.3 10^3/uL (4.0-10.5)
[2018-03-31] MEDS: ISOSORBIDE DINITRATE 20 MG TABLET PO SCH ×3 (05:44→21:41)
[2018-03-31] MEDS: LEVOTHYROXINE SODIUM 0.05 MG TABLET PO SCH (05:44)
[2018-03-31 05:47] LABS: BLOOD UREA NITROGEN 32 mg/dL (7-20); CALCIUM 8.9 mg/dL (8.4-10.2); CHLORIDE 93 mmol/L (98-107); GLUCOSE 112 mg/dL (75-110); POTASSIUM 4.1 mmol/L (3.6-5.0); SODIUM 138.7 mmol/L (137-145)
[2018-03-31 06:02] LABS: ANION GAP 5 (5-19)
[2018-03-31 06:03] LABS: CARBON DIOXIDE 41 mmol/L (22-30)
[2018-03-31 06:41] LABS: ARTERIAL BLOOD BASE EXCESS 16.6 mmol/L; ARTERIAL BLOOD H2CO3 1.92 mmol/L (1.05-1.35); ARTERIAL BLOOD HCO3 43.8 mmol/L (20-24); ARTERIAL BLOOD O2 SATURATION 96.3 % (94-98); ARTERIAL BLOOD PCO2 63.7 mmHg (35-45); ARTERIAL BLOOD PH 7.46 (7.35-7.45); ARTERIAL BLOOD PO2 83.3 mmHg (80-100); ARTERIAL BLOOD TOTAL CO2 45.7 mmol/L (21-25)
[2018-03-31 06:45] LABS: ARTERIAL BLOOD FIO2 30%
[2018-03-31] MEDS: DULOXETINE HCL 30 MG CAPSULE.DR PO SCH (10:02)
[2018-03-31] MEDS: CALCIUM CARBONATE 250 MG/VITAMIN D3 125 UNIT TABLET PO SCH (10:03)
[2018-03-31] MEDS: CARVEDILOL 12.5 MG TABLET PO SCH ×2 (10:03→21:41)
[2018-03-31] MEDS: ASPIRIN 81 MG TABLET, ENT COATED PO SCH (10:03)
[2018-03-31] MEDS: ENOXAPARIN SODIUM INJ 40 MG/0.4 ML DISP.SYRIN SUBCUT SCH (10:04)
[2018-03-31] MEDS: INSULIN GLARGINE,HUM.REC.ANLOG 1,000 UNIT/10 ML UNIT SUBCUT SCH ×2 (10:04→17:34)
[2018-03-31] MEDS: FAMOTIDINE 20 MG TABLET PO SCH ×2 (10:04→21:41)
[2018-03-31] MEDS: CEFUROXIME 250 MG TABLET PO SCH ×2 (10:05→21:41)
[2018-03-31] MEDS: SALMETEROL XINAFOATE DISKUS 50 MCG/1 DOSE 28 DOSE IH SCH ×2 (10:05→21:42)
[2018-03-31] MEDS: TIOTROPIUM BROMIDE DPI 5 CAP/KIT (18 MCG/CAP) IH SCH (10:05)
[2018-03-31] MEDS: ALBUTEROL SULFATE 0.083% NEB 2.5 MG/3 ML AMPUL NEB PRN (10:38)
--- NOTE | 2018-03-31 12:08 | PDOC PROGRESS REPORT ---
Subjective Progress Note for:: 03/31/18 Subjective:: TRENA BENITEZ is a 47 year old female with history of diabetes mellitus morbid obesity, hypertension, hyperlipidemia, congestive heart failure osteoarthritis, obstructive sleep apnea admitted 03/22/18 with sepsis, UTI, and elevated LFTs found to have cholelithiasis. The patient was seen on morning rounds. She is an alert and oriented x4; somewhat withdrawn today. She was found resting in bed supine, wearing BiPAP. She was sleeping when I entered the room but woke easily when I said her name. She denies fever, chills, headache, chest pain, palpitations, dyspnea at rest, orthopnea, cough, abdominal pain, nausea vomiting and diarrhea. She has no new questions or concerns. No concerns per nursing. Reason For Visit: PNEUMONIA Physical Exam Vital Signs: Temp Pulse Resp BP Pulse Ox 97.5 F 83 16 138/83 H 96 03/31/18 08:00 03/31/18 10:34 03/31/18 10:34 03/31/18 08:00 03/31/18 10:34 Intake & Output 03/30/18 03/31/18 04/01/18 06:59 06:59 06:59 Intake Total 1203 1409 Output Total 1600 1900 Balance -397 -491 Weight 126.4 kg 127.6 kg General appearance: PRESENT: no acute distress, morbidly obese, well-developed, well-nourished Head exam: PRESENT: atraumatic, normocephalic Eye exam: PRESENT: conjunctiva pink, EOMI, PERRLA. ABSENT: scleral icterus Ear exam: PRESENT: normal external ear exam Mouth exam: PRESENT: moist, tongue midline Neck exam: ABSENT: carotid bruit, JVD, lymphadenopathy, thyromegaly Respiratory exam: PRESENT: clear to auscultation aime, decreased breath sounds - Throughout; secondary to body habitus and poor respiratory effort., symmetrical, unlabored, other - currently wearing BiPAP. ABSENT: rales, rhonchi, wheezes Cardiovascular exam: PRESENT: RRR, +S1, +S2. ABSENT: diastolic murmur, rubs, systolic murmur Pulses: PRESENT: normal dorsalis pedis pul Vascular exam: PRESENT: normal capillary refill GI/Abdominal exam: PRESENT: normal bowel sounds, soft. ABSENT: distended, guarding, mass, organolmegaly, rebound, tenderness Rectal exam: PRESENT: deferred Extremities exam: PRESENT: full ROM. ABSENT: calf tenderness, clubbing, pedal edema Neurological exam: PRESENT: alert, awake, oriented to person, oriented to place, oriented to time, oriented to situation, CN II-XII grossly intact. ABSENT: motor sensory deficit Psychiatric exam: PRESENT: appropriate affect, flat affect, normal mood. ABSENT: homicidal ideation, suicidal ideation Skin exam: PRESENT: dry, intact, warm. ABSENT: cyanosis, rash Results Laboratory Results: 03/31/18 04:49 03/31/18 04:49 03/30/18 03/31/18 03/31/18 16:35 04:49 04:49 WBC 11.3 H RBC 5.03 Hgb 13.4 Hct 41.3 MCV 82 MCH 26.6 L MCHC 32.4 RDW 15.4 H Plt Count 340 Carbonic Acid HCO3/H2CO3 Ratio ABG pH ABG pCO2 ABG pO2 ABG HCO3 ABG O2 Saturation ABG Base Excess FiO2 Sodium 138.7 Potassium 4.1 Chloride 93 L Carbon Dioxide 41 H* Anion Gap 5 BUN 32 H Creatinine 0.87 Est GFR ( Amer) > 60 Est GFR (Non-Af Amer) > 60 Glucose 112 H Calcium 8.9 Urine Color YELLOW Urine Appearance SLIGHTLY-CLOUDY Urine pH 5.0 Ur Specific [place] 1.015 Urine Protein 30 H Urine Glucose (UA) NEGATIVE Urine Ketones NEGATIVE Urine Blood NEGATIVE Urine Nitrite NEGATIVE Ur Leukocyte Esterase SMALL H Urine WBC (Auto) 7 Urine RBC (Auto) 1 03/31/18 06:30 WBC RBC Hgb Hct MCV MCH MCHC RDW Plt Count Carbonic Acid 1.92 H HCO3/H2CO3 Ratio 22:1 ABG pH 7.46 H ABG pCO2 63.7 H ABG pO2 83.3 ABG HCO3 43.8 H ABG O2 Saturation 96.3 ABG Base Excess 16.6 FiO2 30% Sodium Potassium Chloride Carbon Dioxide Anion Gap BUN Creatinine Est GFR ( Amer) Est GFR (Non-Af Amer) Glucose Calcium Urine Color Urine Appearance Urine pH Ur Specific [place] Urine Protein Urine Glucose (UA) Urine Ketones Urine Blood Urine Nitrite Ur Leukocyte Esterase Urine WBC (Auto) Urine RBC (Auto) 03/22/18 03/25/18 03/30/18 11:00 05:19 04:24 CK-MB (CK-2) 0.39 Troponin I 0.070 NT-Pro-B Natriuret Pep 7890 H 7450 H 2020 H Impressions: Abdomen Ultrasound 03/22/18 11:59 IMPRESSION: Gallstones without ultrasound evidence of acute cholecystitis. No biliary ductal dilatation. No gallbladder wall thickening. No pericholecystic fluid. Negative sonographic Rodriguez's sign. Chest/Abdomen CTA 03/23/18 00:00 IMPRESSION: 1. Limited study. 2. Cardiomegaly. 3. No central pulmonary embolus. Renal Ultrasound 03/25/18 00:00 IMPRESSION: NORMAL RENAL AND BLADDER ULTRASOUND. Chest X-Ray 03/28/18 07:00 IMPRESSION: HEART ENLARGED WITHOUT FAILURE. NO OTHER SIGNIFICANT RADIOGRAPHIC FINDING IN THE CHEST. Assessment & Plan - Diagnosis (1) Sepsis Qualifiers: Sepsis type: Escherichia coli Qualified Code(s): A41.51 - Sepsis due to Escherichia coli [E. coli] Is this a current diagnosis for this admission?: Yes Plan: Resolved. The patient was admitted with sepsis secondary to E. coli urinary tract infection, present on admission, evidenced by an elevated lactic acid level, elevated WBC, fever, tachycardia, and tachypnea. The patient was initially placed on IV Rocephin and Levaquin; this was changed to Invanz due to continued high fevers, elevated lactic acid, and leukocytosis. She was supported with gentle IV fluids secondary to her CHF. Fortunately, blood cultures have remained negative and her urine culture grew pansensitive E. coli. IV antibiotics were continued until the patient had been afebrile for greater than 48 hours. Continue p.o. Ceftin. Day #12/21 (2) Hyponatremia Is this a current diagnosis for this admission?: Yes Plan: Resolved. Likely secondary to fluid volume overload in the setting of sepsis requiring IV fluids. Serum Osmo 283, Urine Osmo 332. Urine sodium 32 Holding diuretics. Patient is fluid restricted to 1 L daily. Nephrology is consulted; appreciate their evaluation recommendations. (3) FELICIA (acute kidney injury) Is this a current diagnosis for this admission?: Yes Plan: Resolved. Most likely secondary to IV contrast dye induced ATN. Possibly also complicated by UTI, sepsis, and likely underlying CKD from poorly controlled diabetes mellitus. Creatinine on admission 1.09; now 0.87. Unknown baseline. Nephrology has been consulted; appreciate their assistance. Avoid nephrotoxic medications as able. Holding diuretics (furosemide, metolazone, spironolactone). Pyridium (post marketing reports of acute renal failure) and Reglan discontinued. (4) CHF (congestive heart failure) Is this a current diagnosis for this admission?: Yes Plan: Patient endorses a history of CHF. She does not appear to be volume overloaded on exam. Chest x-ray revealed cardiomegaly without pleural effusions. Repeat chest x-ray is benign. proBNP elevated to 7450--> 2020 Home medication regiment includes: Metolazone 2.5 mg daily, Lasix 40 mg twice daily, and spironolactone 25 mg daily; holding diuretics secondary to recent FELICIA. Weight is stable. She is on a cardiac diet. 1000 ml fluid restriction. Daily weights with strict I&O's. (5) Diabetes 1.5, managed as type 2 Is this a current diagnosis for this admission?: Yes Plan: A1c 10.5% Excellent control at present; bgl 96-185 last 24 hours The patient is placed on a consistent carb diet with Accu-Checks before meals and at bedtime. Lantus 20 units twice daily with Humalog for sliding scale coverage. Registered dietitian and perinatal educator consulted. (6) HTN (hypertension) Is this a current diagnosis for this admission?: Yes Plan: Now normotensive. Continue Coreg and isosorbide unchanged. Holding metolazone, furosemide, and spironolactone secondary to AK I. Hydralazine discontinued (7) Urinary tract infection Qualifiers: Urinary tract infection type: site unspecified Hematuria presence: without hematuria Qualified Code(s): N39.0 - Urinary tract infection, site not specified Is this a current diagnosis for this admission?: Yes Plan: The patient was initially placed on Rocephin and Levaquin; this was transitioned to IV Invanz due to persistent fever. Urine cultures have now resulted pansensitive E. coli; she has been placed on p.o. Ceftin. Blood cultures (one set) with pansensitive E. coli. (8) Obesity hypoventilation syndrome Is this a current diagnosis for this admission?: Yes Plan: Patient with worsening of chronic respiratory failure secondary to BRENDAN, obesity hypoventilation syndrome, and pickwickian syndrome. Unclear baseline hypercapnia. She remains oxygen dependent on nasal cannula at 2.5 lpm and BiPAP when sleeping. ABGs slowly improving; pH 7.46, PCO2 63.7 (down from 69.9) PO2 83.3, HCO3 43.8 Pulmonology has been consulted; appreciate their assistance in stabilizing the patient's chronic respiratory status so that she may keep her return flight to [place] (initially believed to be 03/31, confirmed to actually be April 17). Discharge planning is consulted to assist with her complicated discharge needs. Unfortunately the patient will require oxygen at discharge and her home BiPAP device is not compatible with supplemental oxygen. Out of bed 3 times daily and for meals, ambulate in the hallways with staff and oxygen daily. Supplemental oxygen and BiPAP anytime she is lying down. Only 1 thin pillow for comfort. (9) Sleep apnea Is this a current diagnosis for this admission?: Yes Plan: BiPAP nightly and prn. Avoid sedating medications. (10) Morbid obesity Is this a current diagnosis for this admission?: Yes Plan: Dietary discretion is advised. Registered dietitian and perinatal educator consulted. Out of bed 3 times daily and with meals. Ambulate in the hallways every shift. (11) Acute on chronic respiratory failure with hypoxia and hypercapnia Is this a current diagnosis for this admission?: Yes Plan: Secondary to BRENDAN, obesity hypoventilation syndrome, medication/device noncompliance, and underlying CHF (currently compensated). Management as above. (12) Subclinical hypothyroidism Is this a current diagnosis for this admission?: Yes Plan: TSH 5.78. Free T4 1.35. Free T3 3.13. Patient with clear metabolic syndrome; insulin-dependent diabetes, morbid obesity, central obesity, fatigue, flat affect (questionable underlying depression). We will start levothyroxine 50 mcg daily. - Time Time Spent with patient: 15-24 minutes Medications reviewed and adjusted accordingly: Yes Anticipated discharge: Home Within: Other - pending oxygen equipment arrangements
[2018-04-01] MEDS: ISOSORBIDE DINITRATE 20 MG TABLET PO SCH ×2 (05:25→14:02)
[2018-04-01] MEDS: LEVOTHYROXINE SODIUM 0.05 MG TABLET PO SCH (05:26)
[2018-04-01 08:08] LABS: BLOOD UREA NITROGEN 22 mg/dL (7-20); CALCIUM 8.4 mg/dL (8.4-10.2); CHLORIDE 95 mmol/L (98-107); GLUCOSE 101 mg/dL (75-110); POTASSIUM 4.1 mmol/L (3.6-5.0)
[2018-04-01 08:19] LABS: ANION GAP 3 (5-19)
[2018-04-01 08:21] LABS: CARBON DIOXIDE 42 mmol/L (22-30)
[2018-04-01] MEDS: ASPIRIN 81 MG TABLET, ENT COATED PO SCH (10:08)
[2018-04-01] MEDS: DULOXETINE HCL 30 MG CAPSULE.DR PO SCH (10:08)
[2018-04-01] MEDS: CALCIUM CARBONATE 250 MG/VITAMIN D3 125 UNIT TABLET PO SCH (10:08)
[2018-04-01] MEDS: FAMOTIDINE 20 MG TABLET PO SCH (10:08)
[2018-04-01] MEDS: CARVEDILOL 12.5 MG TABLET PO SCH (10:09)
[2018-04-01] MEDS: INSULIN GLARGINE,HUM.REC.ANLOG 1,000 UNIT/10 ML UNIT SUBCUT SCH (10:09)
[2018-04-01] MEDS: TIOTROPIUM BROMIDE DPI 5 CAP/KIT (18 MCG/CAP) IH SCH (10:10)
[2018-04-01] MEDS: CEFUROXIME 250 MG TABLET PO SCH (10:10)
[2018-04-01] MEDS: ENOXAPARIN SODIUM INJ 40 MG/0.4 ML DISP.SYRIN SUBCUT SCH (10:10)
[2018-04-01] MEDS: SALMETEROL XINAFOATE DISKUS 50 MCG/1 DOSE 28 DOSE IH SCH (10:11)
[2018-04-01 13:00] VITALS: BP 120/63
--- NOTE | 2018-04-08 10:46 | PDOC CONSULTATION ---
Consultation Consult Date: 03/27/18 Attending physician:: BHARAT BURTON Consult reason:: Dyspnea History of Present Illness Admission Date/PCP: 03/22/18 18:31 History of Present Illness: TRENA BENITEZ is a 48 year old female, presents to ED with increasing shortness of breath apparently has obstructive sleep apnea and obesity hypoventilation syndrome and she is visiting [place] and her family is here although she is a resident of [place] and she failed to bring her NIPPV which according to family members she barely uses any way signs of a cough that is nonproductive questionable fevers and chills shortness of breath as well as dyspnea on exertion of appetite she has approximately [id number] history of smoking but has not smoked since she has been hospitalized she has no pets and no recent travel no significant occupational exposure to potential respiratory toxins she denies angina-like chest pain sleeps on 2-3 pillows occasional PND occasional nocturnal cough and occasional edema Past Medical History Cardiac Medical History: Reports: Congestive Heart Failure, Hyperlipidema, Hypertension Pulmonary Medical History: Reports: Chronic Obstructive Pulmonary Disease (COPD) Endocrine Medical History: Reports: Diabetes Mellitus Type 2 Musculoskeltal Medical History: Reports: Arthritis Past Surgical History Past Surgical History: Reports: None Social History Information Source: Patient, Relative, OM Records Smoking Status: Current Every Day Smoker Cigarettes Packs Per Day: 0.5 Frequency of Alcohol Use: None Hx Recreational Drug Use: No Drugs: None Hx Prescription Drug Abuse: No Do you have pets?: No Have you had any respiratory illnesses as a child?: No Have you been exposed to any sick contacts recently?: No Have you travelled outside of [place] in the past 12 months?: Yes Family History Family History: CAD, COPD, Hypertension Parental Family History Reviewed: Yes Children Family History Reviewed: Yes Sibling(s) Family History Reviewed.: Yes Medication/Allergy Home Medications: Acetaminophen [Tylenol 325 mg Tablet] 325 mg PO Q6HP PRN MDD FILLED 12/17/17 30 DAY SUPPLY 03/23/18 Aspirin [Ecotrin 81 mg EC Tablet] 81 mg PO DAILY MDD FILLED 12/13/17 30 DAY SUPPLY 03/23/18 Furosemide [Lasix 40 mg Tablet] 40 mg PO BID MDD FILLED 12/13/17 30 DAY SUPPLY 03/23/18 Isosorbide Dinitrate [Isordil Titradose 20 mg Tablet] 40 mg PO Q8 MDD FILLED 12/13/17 30 DAY SUPPLY 03/23/18 Albuterol Sulfate [Ventolin 0.083% Neb 2.5 mg/3 mL Ampul] 2.5 mg NEB RTQ4HP PRN #120 vial.neb 03/30/18 Budesonide [Pulmicort Neb 0.5 mg/2 ml Ampul] 0.5 mg NEB RTQ12 #60 ampul.neb 03/30/18 Calcium Carbonate/Vitamin D3 [Os-Roni 250 mg with Vitamin D 125 Units] 1 tab PO DAILY #30 tablet 03/30/18 Carvedilol [Coreg 12.5 mg Tablet] 12.5 mg PO Q12 #60 tablet 03/30/18 Famotidine [Pepcid 20 mg Tablet] 20 mg PO Q12 #60 tablet 03/30/18 Furosemide [Lasix] 10 mg PO DAILY #30 tablet 03/30/18 Insulin Glargine,Hum.rec.anlog [Lantus Insulin Inj 300 Unit/3 ml Pen] 20 unit SUBCUT QHS #1 pen 03/30/18 Insulin Lispro [Humalog Kwikpen U-100] See Protocol SQ ACHS #1 insuln.pen 03/30/18 Salmeterol Xinafoate [Serevent Diskus 50 Mcg/Dose 28 Dose/Diskus] 50 mcg IH Q12 #1 disk 03/30/18 Acetaminophen [Tylenol 325 mg Tablet] 650 mg PO Q4HP PRN tablet 04/01/18 Cefuroxime Axetil [Ceftin 250 mg Tablet] 250 mg PO Q12 #10 tablet 04/01/18 Duloxetine HCl [Cymbalta 30 mg Capsule.] 30 mg PO DAILY #30 capsule.dr 04/01/18 Levothyroxine Sodium [Synthroid 0.05 mg Tablet] 0.05 mg PO Q6AM #30 tablet 04/01/18 Tiotropium [place] [Spiriva Handihaler 5 Cap/Kit (18 Mcg/Cap)] 1 cap IH DAILY #1 kit 04/01/18 Allergies/Adverse Reactions: No Known Allergies Allergy (Verified 03/22/18 10:30) Review of Systems Constitutional: PRESENT: fatigue, weakness. ABSENT: anorexia Eyes: ABSENT: visual disturbances Ears: ABSENT: hearing changes Nose, Mouth, and Throat: ABSENT: mouth pain Cardiovascular: PRESENT: dyspnea on exertion, orthropnea. ABSENT: palpitations Respiratory: PRESENT: cough, dyspnea. ABSENT: hemoptysis, sputum Gastrointestinal: ABSENT: abdominal pain, bloating, coffee ground emesis, hematemesis, hematochezia, melena Genitourinary: ABSENT: dysuria, hematuria Musculoskeletal: ABSENT: deformity, joint swelling Integumentary: ABSENT: pruritus, rash Neurological: ABSENT: abnormal gait, abnormal movements, abnormal speech, confusion, focal weakness, frequent falls, lack of coordination, memory loss Psychiatric: ABSENT: hallucinations, homidical ideation, suicidal ideation Endocrine: ABSENT: cold intolerance, heat intolerance Hematologic/Lymphatic: ABSENT: easy bruising, lymphadenopathy Allergic/Immunologic: ABSENT: seasonal rhinorrhea Physical Exam Vital Signs: Temp Pulse Resp BP Pulse Ox 98.0 F 86 16 120/63 95 04/01/18 12:43 04/01/18 12:43 04/01/18 12:43 04/01/18 12:43 04/01/18 12:43 General appearance: PRESENT: no acute distress, disheveled, morbidly obese. ABSENT: cooperative Head exam: PRESENT: atraumatic, normocephalic Eye exam: PRESENT: conjunctiva pale, EOMI. ABSENT: nystagmus, scleral icterus Mouth exam: PRESENT: dry mucosa, neck supple, tongue midline Neck exam: ABSENT: carotid bruit, JVD, lymphadenopathy, thyromegaly, tracheal deviation, tracheostomy Respiratory exam: PRESENT: decreased breath sounds, prolonged expiratory phas, rales, rhonchi, unlabored, wheezes. ABSENT: retraction, stridor, symmetrical, tachypnea Cardiovascular exam: PRESENT: RRR, +S1, +S2. ABSENT: tachycardia Pulses: PRESENT: normal radial pulses GI/Abdominal exam: PRESENT: soft. ABSENT: tenderness Extremities exam: PRESENT: pedal edema. ABSENT: calf tenderness, clubbing, joint swelling Musculoskeletal exam: ABSENT: deformity, dislocation Neurological exam: PRESENT: awake Skin exam: PRESENT: dry, warm Results Laboratory Results: 03/31/18 04:49 04/01/18 07:42 03/22/18 03/25/18 03/30/18 11:00 05:19 04:24 CK-MB (CK-2) 0.39 Troponin I 0.070 NT-Pro-B Natriuret Pep 7890 H 7450 H 2020 H Impressions: Abdomen Ultrasound 03/22/18 11:59 IMPRESSION: Gallstones without ultrasound evidence of acute cholecystitis. No biliary ductal dilatation. No gallbladder wall thickening. No pericholecystic fluid. Negative sonographic Rodriguez's sign. Chest/Abdomen CTA 03/23/18 00:00 IMPRESSION: 1. Limited study. 2. Cardiomegaly. 3. No central pulmonary embolus. Renal Ultrasound 03/25/18 00:00 IMPRESSION: NORMAL RENAL AND BLADDER ULTRASOUND. Chest X-Ray 03/28/18 07:00 IMPRESSION: HEART ENLARGED WITHOUT FAILURE. NO OTHER SIGNIFICANT RADIOGRAPHIC FINDING IN THE CHEST. Assessment & Plan - Diagnosis (1) Acute on chronic respiratory failure with hypoxia and hypercapnia Is this a current diagnosis for this admission?: Yes Plan: Supplemental oxygen attempt to maintain visit meant minute ventilation with noninvasive positive pressure ventilation BiPAP (2) CHF (congestive heart failure) Qualifiers: Heart failure chronicity: acute on chronic Is this a current diagnosis for this admission?: Yes Plan: Gentle diuresis (3) HTN (hypertension) Is this a current diagnosis for this admission?: Yes Plan: Stable at this time (4) Morbid obesity Is this a current diagnosis for this admission?: Yes Plan: Weight loss, nutrition consult (5) Obesity hypoventilation syndrome Is this a current diagnosis for this admission?: Yes Plan: Invasive positive pressure ventilation (6) Sleep apnea Is this a current diagnosis for this admission?: Yes Plan: Noninvasive positive pressure ventilation (7) Smoker Is this a current diagnosis for this admission?: Yes Plan: Stop smoking
--- NOTE | 2018-04-08 10:51 | PDOC PROGRESS REPORT ---
Subjective Progress Note for:: 03/29/18 Subjective:: No complaints. Withdrawn Reason For Visit: PNEUMONIA Physical Exam Vital Signs: Temp Pulse Resp BP Pulse Ox 98.0 F 86 16 120/63 95 04/01/18 12:43 04/01/18 12:43 04/01/18 12:43 04/01/18 12:43 04/01/18 12:43 General appearance: PRESENT: no acute distress, cooperative, disheveled, morbidly obese Head exam: PRESENT: atraumatic, normocephalic Eye exam: PRESENT: conjunctiva pale, EOMI. ABSENT: nystagmus, scleral icterus Mouth exam: PRESENT: dry mucosa, neck supple, tongue midline Neck exam: ABSENT: carotid bruit, JVD, lymphadenopathy, thyromegaly, tracheal deviation, tracheostomy Respiratory exam: PRESENT: decreased breath sounds, prolonged expiratory phas, rhonchi, symmetrical. ABSENT: rales, retraction, stridor, tachypnea Cardiovascular exam: PRESENT: RRR, +S1, +S2. ABSENT: tachycardia Pulses: PRESENT: normal radial pulses GI/Abdominal exam: PRESENT: soft. ABSENT: tenderness Extremities exam: PRESENT: pedal edema. ABSENT: calf tenderness, clubbing, joint swelling Musculoskeletal exam: ABSENT: deformity, dislocation Neurological exam: PRESENT: awake Psychiatric exam: PRESENT: appropriate affect Skin exam: PRESENT: dry, warm Results Laboratory Results: 03/31/18 04:49 04/01/18 07:42 03/22/18 03/25/18 03/30/18 11:00 05:19 04:24 CK-MB (CK-2) 0.39 Troponin I 0.070 NT-Pro-B Natriuret Pep 7890 H 7450 H 2020 H Impressions: Abdomen Ultrasound 03/22/18 11:59 IMPRESSION: Gallstones without ultrasound evidence of acute cholecystitis. No biliary ductal dilatation. No gallbladder wall thickening. No pericholecystic fluid. Negative sonographic Rodriguez's sign. Chest/Abdomen CTA 03/23/18 00:00 IMPRESSION: 1. Limited study. 2. Cardiomegaly. 3. No central pulmonary embolus. Renal Ultrasound 03/25/18 00:00 IMPRESSION: NORMAL RENAL AND BLADDER ULTRASOUND. Chest X-Ray 03/28/18 07:00 IMPRESSION: HEART ENLARGED WITHOUT FAILURE. NO OTHER SIGNIFICANT RADIOGRAPHIC FINDING IN THE CHEST. Assessment & Plan - Diagnosis (1) Acute on chronic respiratory failure with hypoxia and hypercapnia Is this a current diagnosis for this admission?: Yes Plan: Supplemental oxygen attempt to maintain visit meant minute ventilation with noninvasive positive pressure ventilation BiPAP (2) CHF (congestive heart failure) Qualifiers: Heart failure chronicity: acute on chronic Is this a current diagnosis for this admission?: Yes Plan: Gentle diuresis (3) HTN (hypertension) Is this a current diagnosis for this admission?: Yes Plan: Stable at this time (4) Morbid obesity Is this a current diagnosis for this admission?: Yes Plan: Weight loss, nutrition consult (5) Obesity hypoventilation syndrome Is this a current diagnosis for this admission?: Yes Plan: Invasive positive pressure ventilation (6) Sleep apnea Is this a current diagnosis for this admission?: Yes Plan: Noninvasive positive pressure ventilation (7) Smoker Is this a current diagnosis for this admission?: Yes Plan: Stop smoking
--- NOTE | 2018-04-14 16:54 | PDOC DISCHARGE SUMMARY ---
General - Admit/Disc Date/PCP Admission Date/Primary Care Provider: 03/22/18 18:31 Discharge Date: 04/01/18 - Discharge Diagnosis (1) Sepsis Is this a current diagnosis for this admission?: Yes Summary: Resolved. The patient was admitted with sepsis secondary to E. coli urinary tract infection, present on admission, evidenced by an elevated lactic acid level, elevated WBC, fever, tachycardia, and tachypnea. The patient was initially placed on IV Rocephin and Levaquin; this was changed to Invanz due to continued high fevers, elevated lactic acid, and leukocytosis. She was supported with gentle IV fluids secondary to her CHF. Fortunately, blood cultures have remained negative and her urine culture grew pansensitive E. coli. IV antibiotics were continued until the patient had been afebrile for greater than 48 hours. Continue p.o. Ceftin. Day #01/20. She is discharged with a prescription for p.o. Ceftin to complete her antibiotic course. (2) Hyponatremia Is this a current diagnosis for this admission?: Yes Summary: Resolved. Likely secondary to fluid volume overload in the setting of sepsis requiring IV fluids. Serum Osmo 283, Urine Osmo 332. Urine sodium 32 Nephrology was consulted; appreciate their assistance in evaluating and managing volume overload. Patient is educated on the importance of fluid restriction to 1 L daily. Recommend follow-up chemistry within 7-10 days. (3) FELICIA (acute kidney injury) Is this a current diagnosis for this admission?: Yes Summary: Resolved. Most likely secondary to IV contrast dye induced ATN. Possibly also complicated by UTI, sepsis, and likely underlying CKD from poorly controlled diabetes mellitus. Creatinine on admission 1.09; now 0.87. Unknown baseline. Nephrology was consulted; appreciate their assistance in managing AK I. Recommend follow-up chemistry in 7-10 days. (4) CHF (congestive heart failure) Is this a current diagnosis for this admission?: Yes Summary: Patient endorses a history of CHF. She does not appear to be volume overloaded on exam. Chest x-ray revealed cardiomegaly without pleural effusions. Repeat chest x-ray is benign. proBNP elevated to 7450--> 2020 Home medication regiment includes: Metolazone 2.5 mg daily, Lasix 40 mg twice daily, and spironolactone 25 mg daily. At discharge, the patient is instructed to continue her isosorbide unchanged, and is provided a prescription for carvedilol, and lower dose furosemide. She is advised on the importance of a cardiac diet, 1 L fluid restriction, and daily weights. Recommend following up with her primary care provider as soon as possible. Notify her healthcare provider of any weight gain greater than 2 pounds overnight. Return to the emergency department as needed for concerning symptoms. (5) Diabetes 1.5, managed as type 2 Is this a current diagnosis for this admission?: Yes Summary: A1c of 10.5%. Patient was placed on a cardiac/consistent carb diet with Accu-Cheks before meals and at bedtime. Excellent glucose control was obtained while inpatient. She is discharged with prescriptions for Lantus 20 units subcu nightly with Humalog for sliding scale protocol. She was provided multiple opportunities to meet with the registered dietitian and make up worker; unfortunately, the patient declined to discuss her diabetes, diet recommendations, and help with these providers. She was educated on self administration of insulin and has successfully done so prior to discharge. (6) HTN (hypertension) Is this a current diagnosis for this admission?: Yes Summary: Normotensive. Continue isosorbide unchanged; provided prescription for Coreg and lower dose of furosemide. Outpatient follow-up and recommendations as above. (7) Urinary tract infection Is this a current diagnosis for this admission?: Yes Summary: The patient was initially placed on Rocephin and Levaquin; this was transitioned to IV Invanz due to persistent fever. Urine cultures have now resulted pansensitive E. coli; she has been placed on p.o. Ceftin and has been provided a prescription to complete her course of therapy after discharge. (8) Obesity hypoventilation syndrome Is this a current diagnosis for this admission?: Yes Summary: Chronic respiratory failure secondary to BRENDAN, obesity hypoventilation syndrome, and pickwickian syndrome. Unclear baseline hypercapnia. She remains oxygen dependent on nasal cannula at 2.5 lpm and BiPAP when sleeping. ABGs slowly improving; pH 7.46, PCO2 63.7 (down from 69.9) PO2 83.3, HCO3 43.8 Pulmonology was consulted; appreciate their assistance in stabilizing the patient's chronic respiratory status. The patient's family members brought her home BiPAP machine to the hospital; it was confirmed to be an auto BiPAP which pulmonology has approved for continued use with the addition of supplemental oxygen. Recommend increased physical activity while awake, out of bed for all meals, slowly increase ambulation. The patient should utilize BiPAP with supplemental oxygen anytime she is lying down. When lying down, recommend one thin pillow only for comfort to prevent pickwickian syndrome. Discharge planning work diligently to arrange for the patient to receive home O2. Upon delivery of equipment, the patient was educated on the use via nasal cannula while awake and administration through BiPAP when lying down/sleeping. (9) Sleep apnea Is this a current diagnosis for this admission?: Yes Summary: As above. (10) Morbid obesity Is this a current diagnosis for this admission?: Yes Summary: A1c 10.5. TSH 5.78, free T4 1.35. Dietary discretion and increased physical activity was advised. Patient was provided multiple opportunities to meet with the registered dietitian and make up worker which were declined. Discussed with the patient and family members the importance of sustained weight loss to prevent future detriment of health and potentially fatal events related to obesity hypoventilation syndrome. (11) Acute on chronic respiratory failure with hypoxia and hypercapnia Is this a current diagnosis for this admission?: Yes Summary: Secondary to BRENDAN, obesity hypoventilation syndrome, medication/device noncompliance, and underlying CHF (currently compensated). Management as above. (12) Subclinical hypothyroidism Is this a current diagnosis for this admission?: Yes Summary: TSH 5.78. Free T4 1.35. Free T3 3.13. Patient with clear metabolic syndrome; insulin-dependent diabetes, morbid obesity, central obesity, fatigue, flat affect (questionable underlying depression). She was started on levothyroxine 50 mcg daily and provided a prescription to continue at discharge. Recommend follow-up TSH and free T4 in 6-8 weeks. - Additional Information Discharge Diet: As Tolerated, Cardiac, Diabetic, Other (Comments) Discharge Activity: Activity As Tolerated, Balance Activity w/Rest, Weigh Daily Prescriptions: Albuterol Sulfate [Ventolin 0.083% Neb 2.5 mg/3 mL Ampul] 2.5 mg NEB RTQ4HP PRN #120 vial.neb PRN Reason: Shortness Of Breath Budesonide [Pulmicort Neb 0.5 mg/2 ml Ampul] 0.5 mg NEB RTQ12 #60 ampul.neb Calcium Carbonate/Vitamin D3 [Os-Roni 250 mg with Vitamin D 125 Units] 1 tab PO DAILY #30 tablet Carvedilol [Coreg 12.5 mg Tablet] 12.5 mg PO Q12 #60 tablet Cefuroxime Axetil [Ceftin 250 mg Tablet] 250 mg PO Q12 #10 tablet Duloxetine HCl [Cymbalta 30 mg Capsule.dr] 30 mg PO DAILY #30 capsule.dr Famotidine [Pepcid 20 mg Tablet] 20 mg PO Q12 #60 tablet Furosemide [Lasix] 10 mg PO DAILY #30 tablet Insulin Glargine,Hum.rec.anlog [Lantus Insulin Inj 300 Unit/3 ml Pen] 20 unit SUBCUT QHS #1 pen Insulin Lispro [Humalog Kwikpen U-100] See Protocol SQ ACHS #1 insuln.pen Levothyroxine Sodium [Synthroid 0.05 mg Tablet] 0.05 mg PO Q6AM #30 tablet Salmeterol Xinafoate [Serevent Diskus 50 Mcg/Dose 28 Dose/Diskus] 50 mcg IH Q12 #1 disk Tiotropium Heflin [Spiriva Handihaler 5 Cap/Kit (18 Mcg/Cap)] 1 cap IH DAILY #1 kit Home Medications: Acetaminophen [Tylenol 325 mg Tablet] 325 mg PO Q6HP PRN MDD FILLED 12/17/17 30 DAY SUPPLY 03/23/18 Aspirin [Ecotrin 81 mg EC Tablet] 81 mg PO DAILY MDD FILLED 12/13/17 30 DAY SUPPLY 03/23/18 Furosemide [Lasix 40 mg Tablet] 40 mg PO BID MDD FILLED 12/13/17 30 DAY SUPPLY 03/23/18 Isosorbide Dinitrate [Isordil Titradose 20 mg Tablet] 40 mg PO Q8 MDD FILLED 12/13/17 30 DAY SUPPLY 03/23/18 Albuterol Sulfate [Ventolin 0.083% Neb 2.5 mg/3 mL Ampul] 2.5 mg NEB RTQ4HP PRN #120 vial.neb 03/30/18 Budesonide [Pulmicort Neb 0.5 mg/2 ml Ampul] 0.5 mg NEB RTQ12 #60 ampul.neb 03/30/18 Calcium Carbonate/Vitamin D3 [Os-Roni 250 mg with Vitamin D 125 Units] 1 tab PO DAILY #30 tablet 03/30/18 Carvedilol [Coreg 12.5 mg Tablet] 12.5 mg PO Q12 #60 tablet 03/30/18 Famotidine [Pepcid 20 mg Tablet] 20 mg PO Q12 #60 tablet 03/30/18 Furosemide [Lasix] 10 mg PO DAILY #30 tablet 03/30/18 Insulin Glargine,Hum.rec.anlog [Lantus Insulin Inj 300 Unit/3 ml Pen] 20 unit SUBCUT QHS #1 pen 03/30/18 Insulin Lispro [Humalog Kwikpen U-100] See Protocol SQ ACHS #1 insuln.pen 03/30/18 Salmeterol Xinafoate [Serevent Diskus 50 Mcg/Dose 28 Dose/Diskus] 50 mcg IH Q12 #1 disk 03/30/18 Acetaminophen [Tylenol 325 mg Tablet] 650 mg PO Q4HP PRN tablet 04/01/18 Cefuroxime Axetil [Ceftin 250 mg Tablet] 250 mg PO Q12 #10 tablet 04/01/18 Duloxetine HCl [Cymbalta 30 mg Capsule.] 30 mg PO DAILY #30 capsule.dr 04/01/18 Levothyroxine Sodium [Synthroid 0.05 mg Tablet] 0.05 mg PO Q6AM #30 tablet 04/01/18 Tiotropium Heflin [Spiriva Handihaler 5 Cap/Kit (18 Mcg/Cap)] 1 cap IH DAILY #1 kit 04/01/18 History of Present Illness History of Present Illness: Per H&P by Dr. Morales: TRENA BENITEZ is a 47 year old female With history of diabetes mellitus morbid obesity, hypertension, hyperlipidemia, congestive heart failure osteoarthritis, obstructive sleep apnea came to the emergency room with complaints of fever of 2 days duration. As per the patient fever is associated with cough and cold coughing up yellow sputum. She is also complaining of chills and sweats with fever. Denying any chest pain but complains of shortness of breath. Patient is also reporting nausea vomiting's vomiting watery substance and also loose stools 2-3 times a day watery stools. No blood in the stool. As per the patient is also complaining of dry mouth. Logical symptoms like headache dizziness was reported denies any history of falls. Is any confusion altered mental status. She never had these problems. The emergency room workup was done and was negative WBC is elevated. She has a fever of 103 lactic acid was elevated found to have UTI patient was given Rocephin 1 g IV and medical consult was called for admission. Cultures urine cultures was sent from the ER. Physical Exam Vital Signs: Temp Pulse Resp BP Pulse Ox 98.0 F 86 16 120/63 95 04/01/18 12:43 04/01/18 12:43 04/01/18 12:43 04/01/18 12:43 04/01/18 12:43 Intake & Output 03/31/18 04/01/18 04/02/18 06:59 06:59 06:59 Intake Total 1409 877 475 Output Total 1900 1250 750 Balance -555 -181 -650 Weight 127.6 kg 126.8 kg General appearance: PRESENT: no acute distress, morbidly obese, well-developed, well-nourished Head exam: PRESENT: atraumatic, normocephalic Eye exam: PRESENT: conjunctiva pink, EOMI, PERRLA. ABSENT: scleral icterus Ear exam: PRESENT: normal external ear exam Mouth exam: PRESENT: moist, tongue midline Neck exam: ABSENT: carotid bruit, JVD, lymphadenopathy, thyromegaly Respiratory exam: PRESENT: clear to auscultation aime - Throughout; secondary to body habitus and poor inspiratory effort, decreased breath sounds, prolonged expiratory phas, symmetrical, unlabored, other - Supplemental oxygen via nasal cannula while awake, BiPAP with oxygen while sleeping. ABSENT: rales, rhonchi, wheezes Cardiovascular exam: PRESENT: RRR, +S1, +S2. ABSENT: diastolic murmur, rubs, systolic murmur Pulses: PRESENT: normal dorsalis pedis pul Vascular exam: PRESENT: normal capillary refill GI/Abdominal exam: PRESENT: normal bowel sounds, soft, other - Difficult to assess secondary to body habitus. ABSENT: distended, guarding, mass, organolmegaly, rebound, tenderness Rectal exam: PRESENT: deferred Extremities exam: PRESENT: full ROM. ABSENT: calf tenderness, clubbing, pedal edema Neurological exam: PRESENT: alert, awake, oriented to person, oriented to place, oriented to time, oriented to situation, CN II-XII grossly intact. ABSENT: motor sensory deficit Psychiatric exam: PRESENT: depressed, flat affect. ABSENT: homicidal ideation, normal mood - Withdrawn, suicidal ideation Skin exam: PRESENT: dry, intact, warm. ABSENT: cyanosis, rash Results Laboratory Results: 03/31/18 04:49 04/01/18 07:42 04/01/18 07:42 Sodium 140.0 Potassium 4.1 Chloride 95 L Carbon Dioxide 42 H* Anion Gap 3 L BUN 22 H Creatinine 0.72 Est GFR ( Amer) > 60 Est GFR (Non-Af Amer) > 60 Glucose 101 Calcium 8.4 03/22/18 03/25/18 03/30/18 11:00 05:19 04:24 CK-MB (CK-2) 0.39 Troponin I 0.070 NT-Pro-B Natriuret Pep 7890 H 7450 H 2020 H Impressions: Abdomen Ultrasound 03/22/18 11:59 IMPRESSION: Gallstones without ultrasound evidence of acute cholecystitis. No biliary ductal dilatation. No gallbladder wall thickening. No pericholecystic fluid. Negative sonographic Rodriguez's sign. Chest/Abdomen CTA 03/23/18 00:00 IMPRESSION: 1. Limited study. 2. Cardiomegaly. 3. No central pulmonary embolus. Renal Ultrasound 03/25/18 00:00 IMPRESSION: NORMAL RENAL AND BLADDER ULTRASOUND. Chest X-Ray 03/28/18 07:00 IMPRESSION: HEART ENLARGED WITHOUT FAILURE. NO OTHER SIGNIFICANT RADIOGRAPHIC FINDING IN THE CHEST. Qualifiers - * PATIENT BEING DISCHARGED WITH ANY OF THE FOLLOWING DIAGNOSIS: No Plan Discharge Plan: Discharged home in the care of her family members with supplemental oxygen and home BiPAP machine. Return to [place] as soon as can be arranged. Follow-up with primary care provider immediately upon arrival to [place]. Return to the emergency department as needed for concerning symptoms. Time Spent: Greater than 30 Minutes
== END 2018-04-01 15:19 | disposition home or self-care (01) | DRG 871 ==
LOC: ER 10:27 → EH 18:31 → 3W 20:39
PROVIDERS: ADMIT Family Medicine; ATTEND Family Medicine
PROC: 5A09557 Assistance with Respiratory Ventilation, Greater than 96 Consecutive Hours, Continuous Positive Airway Pressure (ICD-10-PCS; 2018-03-22)
PROC: 3E02340 Introduction of Influenza Vaccine into Muscle, Percutaneous Approach (ICD-10-PCS; principal; 2018-04-01)
DX: A41.51 Sepsis due to Escherichia coli [E. coli] (principal); J96.22 Acute and chronic respiratory failure with hypercapnia; I50.23 Acute on chronic systolic (congestive) heart failure; E66.2 Morbid (severe) obesity with alveolar hypoventilation; N39.0 Urinary tract infection, site not specified; E87.1 Hypo-osmolality and hyponatremia; Z68.43 Body mass index [BMI] 50.0-59.9, adult; I11.0 Hypertensive heart disease with heart failure; J44.9 Chronic obstructive pulmonary disease, unspecified; M19.90 Unspecified osteoarthritis, unspecified site; F17.210 Nicotine dependence, cigarettes, uncomplicated; E78.5 Hyperlipidemia, unspecified; T50.8X5A Adverse effect of diagnostic agents, initial encounter; R00.0 Tachycardia, unspecified; E11.622 Type 2 diabetes mellitus with other skin ulcer; K80.20 Calculus of gallbladder without cholecystitis without obstruction; E11.65 Type 2 diabetes mellitus with hyperglycemia; N14.1 Nephropathy induced by other drugs, medicaments and biological substances; E02 Subclinical iodine-deficiency hypothyroidism; Z79.4 Long term (current) use of insulin; Z79.82 Long term (current) use of aspirin; Z79.899 Other long term (current) drug therapy; Z23 Encounter for immunization
CPT/HCPCS: 36415; 36600; 71045; 71275; 76705; 76770; 80048; 80053; 81001; 82553; 82803; 82962; 83036; 83605; 83735; 83880; 83930; 83935; 84300; 84439; 84443; 84481; 84484; 85025; 85027; 85379; 85610; 87040; 87070; 87077; 87086; 87088; 87186; 87205; 87804; 90686; 93005; 93010; 94640; 94660; 94799; 96361; 96365; 96366; 96367; 96372; 96375; 96376; 99291; J0696; J1335; J1650; J1815; J1956; J2270; J2405; J3475; J3490; J7030; S0028

== ENCOUNTER 2020-04-05 10:12 | Inpatient (IN) | payer MEDICAID ==
--- NOTE | 2020-04-05 12:43 | EKG REPORT ---
SEVERITY:- ABNORMAL ECG - SINUS TACHYCARDIA MULTIPLE VENTRICULAR PREMATURE COMPLEXES RIGHT AXIS DEVIATION LOW VOLTAGE THROUGHOUT CONSIDER ANTEROSEPTAL INFARCT BORDERLINE T ABNORMALITIES, DIFFUSE LEADS : Confirmed by: Mirza Glaser MD 05-Apr-2020 12:43:05
--- NOTE | 2020-04-05 13:15 | ER Document Report ---
ED Respiratory Problem - General Chief Complaint: Shortness Of Breath Stated Complaint: BREATHING DIFFICULTY Time Seen by Provider: 04/05/20 13:08 Mode of Arrival: Ambulatory Information source: Patient Notes: 04/05/20 12:51 - ED Nursing Note by JOSH REYES [facility] Num: [id number] : 1970 Patient Age: 50 Patient to ED with complaint of L sided abdominal pain, nausea without vomitting and worsening SOB. Patient reports feeling L sided abdominal pain and sensation of "bloating". Patient reports has tenderness under her abdomen in groin area. Patient reports she does not wear home O2, reports wearing CPAP at night. Patient reports SOB that has continued to worsen. Patient reports she traveled to [place] on 03/15. Patient reports having visitors from out of state during the month of Mar. Patient reports she has felt "warm" to touch but has not checked temperature at home. Patient reports hx of diabetes, HTN and reports 2 previous episodes of cardiac arrest. Patient placed on 3L NC d/t O2 saturation of 91% on RA. Patient unable to provide medications list at this time. Patient is AOx4. Respirations e/u. NAD noted. Initialized on 04/05/20 12:51 - END OF NOTE MY NOTES 50-year-old Pakistani female arrives with chief complaint of stopping s moking 1 month ago and a history 10 years ago of congestive failure with bilateral leg edema and sores on left leg greater than right leg with pannus abdominal left-sided abdominal pain as well as shortness of breath. Patient reports she uses CPAP at nighttime. She has 3 L marked on her oxygen tank and she request more oxygen. I advised her to avoid this in case she has a deficit of oxygen deficit of CO2 sensor around her carotids. She did not hear me and just requested more oxygen. I was in with the nurse and she asked why she has not been seen yet and the nurse advised we are very short staffed and we have a very busy hospital in ER. She asked the nurse if "this was the line she uses for all the complaints." I had just arrived to work and I walked in the room overhearing pts comment and advised her this was the truth and that this hospital was very busy with multiple sick people.I asked pt if she has been @ any Covid + people. Patient reports she just flew in from [place] and tested negative prior to the flight and now lives alone. She also complained that she had eaten last night but nothing today. Prior computer medical history includes history of UTI IDDM hypertension sleep apnea morbid obesity CHF thyroid disease specifically subclinical hypothyroidism and hyponatremia as well as sepsis. Patient takes as medications Serevent Spiriva Pulmicort Synthroid Imdur Humalog Lantus Lasix Cymbalta. TRAVEL OUTSIDE OF THE [place] IN LAST 30 DAYS: No - Related Data Allergies/Adverse Reactions: No Known Allergies Allergy (Verified 03/22/18 10:30) Past Medical History - General Information source: Patient - Social History Smoking Status: Former Smoker Cigarette use (# per day): No Chew tobacco use (# tins/day): No Smoking Education Provided: No Frequency of alcohol use: None - Denies any alcohol use present or past. Drug Abuse: None Lives with: Alone Family History: CAD, COPD, Hypertension Patient has suicidal ideation: No Patient has homicidal ideation: No - Past Medical History Cardiac Medical History: Reports: Hx Congestive Heart Failure, Hx Hypercholesterolemia, Hx Hypertension Pulmonary Medical History: Reports: Hx COPD Endocrine Medical History: Reports: Hx Diabetes Mellitus Type 2 Renal/ Medical History: Denies: Hx Peritoneal Dialysis Musculoskeletal Medical History: Reports Hx Arthritis Review of Systems - Review of Systems Constitutional: See HPI, Malaise, Weakness, Weight gain. denies: Chills, Diaphoresis EENT: No symptoms reported Cardiovascular: See HPI, Palpitations, Orthopnea, Dyspnea, Lightheaded Respiratory: See HPI, Cough, Hurts to breathe, Hemoptysis, Short of breath. denies: Sputum, Stridor, Wheezing Gastrointestinal: See HPI, Abdomen distended, Abdominal pain, Nausea, Poor appetite. denies: Vomiting, Constipation, Blood streaked bowels, Poor fluid intake, Blood in vomit, Black stools, Rectal bleeding, Last bowel movement, Fecal incontinence Genitourinary: See HPI, Flank pain Female Genitourinary: No symptoms reported Musculoskeletal: No symptoms reported Skin: No symptoms reported Hematologic/Lymphatic: No symptoms reported Neurological/Psychological: No symptoms reported -: Yes All other systems reviewed and negative Physical Exam - Vital signs Vitals: Temp Pulse Resp BP Pulse Ox 98.6 F 107 H 20 156/102 H 91 L 04/05/20 10:14 04/05/20 10:14 04/05/20 10:14 04/05/20 10:14 04/05/20 10:14 Interpretation: Hypertensive, Tachycardic, Hypoxic, Tachypneic - General General appearance: Alert, Anxious - HEENT Head: Normocephalic, Atraumatic, Other - Patient has pickwickian facies Eyes: Normal Pupils: PERRL Ears: Normal External canal: Normal Mouth/Lips: Normal Mucous membranes: Moist Pharynx: Normal Neck: Normal - Respiratory Respiratory status: No respiratory distress Chest status: Nontender Breath sounds: Normal Chest palpation: Normal - Cardiovascular Rhythm: Regular Heart sounds: Normal auscultation Murmur: No - Abdominal Inspection: Normal, Morbidly Obese Distension: Distended - Stasis dermatitis of abdomen left greater than right and legs. Bowel sounds: Hypoactive Tenderness: Tender - Tender along the left lateral pannus of this patient. I examined this patient with nursing public health staff nurseSHAKIRA Gutierrez Organomegaly: No organomegaly - Rectal Hemorrhoids: Other - Deferred - Genitourinary Bimanuel exam: Other - Deferred - Back Back: Normal, Nontender - Extremities General upper extremity: Normal inspection, Nontender, Normal color, Normal ROM, Normal temperature General lower extremity: Tender, Edema - +2 pitting edema aime legs left lower leg with around 5 Band-Aids covering stasis ulcerations., Normal color, Normal ROM, Normal temperature, Normal weight bearing. No: Kye's sign - Neurological Neuro grossly intact: Yes Cognition: Normal Orientation: AAOx4 Harper Coma Scale Eye Opening: Spontaneous Harper Coma Scale Verbal: Oriented Harper Coma Scale Motor: Obeys Commands Harper Coma Scale Total: 15 Speech: Normal Motor strength normal: LUE, RUE, LLE, RLE Sensory: Normal - Psychological Associated symptoms: Normal affect, Normal mood - Skin Skin Temperature: Warm Skin Moisture: Dry Skin Color: Normal Course - Vital Signs Vital signs: Temp Pulse Resp BP Pulse Ox 98.6 F 107 H 20 156/102 H 91 L 04/05/20 10:14 04/05/20 10:14 04/05/20 10:14 04/05/20 10:14 04/05/20 10:14 - Laboratory Results Result Diagrams: 04/05/20 14:27 04/05/20 14:27 Laboratory Results Interpreted: 04/05/20 04/05/20 04/05/20 14:27 14:27 14:27 RBC 5.33 H MCH 25.7 L RDW 17.1 H Carbon Dioxide 34 H BUN 23 H Est GFR (MDRD) Non-Af 55 L Glucose 136 H POC Glucose Alkaline Phosphatase 163 H NT-Pro-B Natriuret Pep 4200 H Albumin 3.4 L TSH 04/05/20 04/05/20 14:27 15:35 RBC MCH RDW Carbon Dioxide BUN Est GFR (MDRD) Non-Af Glucose POC Glucose 129 H Alkaline Phosphatase NT-Pro-B Natriuret Pep Albumin TSH 13.20 H Critical Laboratory Results Reviewed: Yes Attending or Supervising Physician who Reviewed Labs: CARLYLE PAUL JR - Radiology Results Radiology Results Interpreted: 04/05/20 18:25 Dr. Salazar radiologist read this abdominal series. Critical Radiology Results Reviewed: Yes Attending or Supervising Physician who Reviewed Radiology: CARLYLE PAUL JR Critical Care Note - Critical Care Note Comments: I discussed this case with Dr. Ibarra at 1534 and he advises he will accept this patient and will see the patient presently. Discharge - Discharge Clinical Impression: Obesity hypoventilation syndrome, Encephalopathy acute, Subclinical hypoth yroidism, Smoker, TSH elevation CHF (congestive heart failure) Qualifiers: Heart failure type: unspecified Heart failure chronicity: unspecified Qualified Code(s): I50.9 - Heart failure, unspecified Sleep apnea Qualifiers: Sleep apnea type: unspecified type Qualified Code(s): G47.30 - Sleep apnea, unspecified Condition: Stable Disposition: ADMITTED INPATIENT Admitting Provider: Stacey (Hospitalist) Unit Admitted: Telemetry
[2020-04-05] MEDS ORDERED: BUMETANIDE INJ/PF 1 MG/4 ML SDV IV ONE (13:35)
--- NOTE | 2020-04-05 14:19 | RADIOLOGY REPORT (SQ) ---
EXAM DESCRIPTION: ACUTE ABDOMEN SERIES IMAGES COMPLETED DATE/TIME: 04/05/2020 2:05 pm REASON FOR STUDY: sob abd pain COMPARISON: None. NUMBER OF VIEWS: Three views. TECHNIQUE: Frontal chest, supine abdomen and upright/decubitus abdomen radiographic images acquired. LIMITATIONS: Limited visualization due to body habitus. FINDINGS: CHEST: Enlarged cardiac silhouette with central vascular congestion. No pleural effusion or pneumothorax. FREE AIR: None. No abnormal gas collections. BOWEL GAS PATTERN: Nonobstructive pattern. No dilated loops or air fluid levels. CALCIFICATIONS: No suspicious calcifications. HARDWARE: Intrauterine device overlies pelvis. SOFT TISSUES: No gross mass or suggestion of organomegaly. BONES: No acute fracture. No worrisome bone lesions. OTHER: No other significant finding. IMPRESSION: Enlarged cardiac silhouette with central vascular congestion. No evidence of acute intra-abdominal/pelvic process. TECHNICAL DOCUMENTATION: JOB ID: [id number] 2010 [employer]- All Rights Reserved Reading location - IP/workstation name: [email or web address]
[2020-04-05 14:58] LABS: ABSOLUTE EOSINOPHILS # (AUTO) 0.3 10^3/uL (0.0-0.6); ABSOLUTE MONOCYTES (AUTO) 0.6 10^3/uL (0.1-1.4); ABSOLUTE NEUT (AUTO) 4.1 10^3/uL (1.7-8.2); BASOPHILS % (AUTO) 0.7 % (0-2); EOSINOPHILS % (AUTO) 4.3 % (0-6); HEMATOCRIT 42.4 % (36.0-47.0); HEMOGLOBIN 13.7 g/dL (12.0-15.5); LYMPHOCYTES % (AUTO) 16.4 % (13-45); MEAN CORPUSCULAR HEMOGLOBIN 25.7 pg (27.0-33.4); MEAN CORPUSCULAR HGB CONC 32.3 g/dL (32.0-36.0); MEAN CORPUSCULAR VOLUME 80 fl (80-97); MONOCYTES % (AUTO) 9.7 % (3-13); PLATELET COUNT 219 10^3/uL (150-450); RED BLOOD COUNT 5.33 10^6/uL (3.72-5.28); RED CELL DISTRIBUTION WIDTH 17.1 % (11.5-14.0); SEGMENTED NEUTROPHILS % (AUTO) 68.9 % (42-78); TOTAL CELLS COUNTED % (AUTO) 100 %; WHITE BLOOD COUNT 5.9 10^3/uL (4.0-10.5)
[2020-04-05 15:12] LABS: ALBUMIN 3.4 g/dL (3.5-5.0); ALKALINE PHOSPHATASE 163 U/L (38-126); ANION GAP 6 (5-19); ASPARTATE AMINO TRANSFERASE 28 U/L (14-36); BILIRUBIN,DIRECT 0.4 mg/dL (0.0-0.4); BILIRUBIN,TOTAL 1.2 mg/dL (0.2-1.3); BLOOD UREA NITROGEN 23 mg/dL (7-20); CALCIUM 8.6 mg/dL (8.4-10.2); CARBON DIOXIDE 34 mmol/L (22-30); CHLORIDE 98 mmol/L (98-107); GLUCOSE 136 mg/dL (75-110); POTASSIUM 4.2 mmol/L (3.6-5.0); TOTAL PROTEIN 7.3 g/dL (6.3-8.2)
[2020-04-05 15:27] LABS: TROPONIN I 0.028 ng/mL
[2020-04-05 17:37] LABS: APPEARANCE,URINE CLEAR; BILIRUBIN,URINE NEGATIVE (NEGATIVE); COLOR,URINE STRAW; GLUCOSE, URINE NEGATIVE (NEGATIVE); KETONES,URINE NEGATIVE (NEGATIVE); LEUKOCYTE ESTERASE,URINE NEGATIVE (NEGATIVE); NITRITE,URINE NEGATIVE (NEGATIVE); PROTEIN,URINE NEGATIVE (NEGATIVE); URINE SPECIFIC GRAVITY 1.006; UROBILINOGEN,URINE NEGATIVE mg/dL (<2.0)
[2020-04-05] MEDS ORDERED: GLUCAGON,HUMAN RECOMB 1 MG INJ IM PRN (18:07)
[2020-04-05] MEDS ORDERED: DEXTROSE 50%-WATER 25 GM/50 ML DISP.SYRIN IV PRN ×2 (18:07)
[2020-04-05] MEDS ORDERED: DEXTROSE 40% GEL 15 GM TUBE PO PRN ×2 (18:07)
[2020-04-05] MEDS ORDERED: IPRATROPIUM/ALBUTEROL 0.5-2.5 MG/3 ML AMPUL NEB PRN (18:08)
[2020-04-05] MEDS ORDERED: MAG HYDROX/AL HYDROX/SIMETH SUSP 30 ML UDCUP PO PRN (18:08)
[2020-04-05] MEDS ORDERED: MAGNESIUM HYDROXIDE SUSP 30 ML UDCUP PO PRN (18:08)
[2020-04-05] MEDS ORDERED: PROMETHAZINE HCL INJ 25 MG/1 ML VIAL IV PRN (18:08)
[2020-04-05] MEDS ORDERED: LORAZEPAM 1 MG TABLET PO PRN (18:19)
[2020-04-05] MEDS ORDERED: OXYCODONE-ACETAMINOPHEN 5-325 MG TABLET PO PRN (18:19)
--- NOTE | 2020-04-05 18:22 | PDOC H&P ---
History of Present Illness Admission Date/PCP: 04/05/20 18:10 Patient complains of: abdominal pain and shortness of breath History of Present Illness: TRENA BENITEZ is a 50 year old female with a reported history of congestive heart failure (unknown if systolic or diastolic) as well as morbid obesity, COPD, nicotine addiction and diabetes mellitus type 2. She traveled from [place] and is supposed to go back on April 13. She has been having some abdominal pain. The left side of the abdomen is tender. She also reports her legs feeling warm to the touch. She has had 2 previous cardiac arrest events. She reports wearing CPAP and although she is unaware of her current medication regimen she was in inpatient 2 years ago. She has been feeling poorly for several days. Her appetite has been diminished. She has been feeling poorly in general. She denies Covid contacts. She also became tearful and is scared of being hospitalized. Past Medical History Cardiac Medical History: Reports: Congestive Heart Failure, Hyperlipidema, Hypertension Pulmonary Medical History: Reports: Chronic Obstructive Pulmonary Disease (COPD) Endocrine Medical History: Reports: Diabetes Mellitus Type 2, Hypothyroidism Musculoskeltal Medical History: Reports: Arthritis Psychiatric Medical History: Reports: Tobacco Dependency Social History Information Source: Patient, [facility] Records Lives with: Alone Smoking Status: Former Smoker Electronic Cigarette use?: No Frequency of Alcohol Use: None Hx Recreational Drug Use: No Drugs: None Hx Prescription Drug Abuse: No - Advance Directive Resuscitation Status: Full Code Surrogate healthcare decision maker:: Unknown Family History Family History: CAD, COPD, Hypertension Parental Family History Reviewed: Yes Children Family History Reviewed: Yes Sibling(s) Family History Reviewed.: Yes Medication/Allergy Home Medications: Acetaminophen [Tylenol 325 mg Tablet] 325 mg PO Q6HP PRN MDD FILLED 12/17/17 30 DAY SUPPLY 03/23/18 Aspirin [Ecotrin 81 mg EC Tablet] 81 mg PO DAILY MDD FILLED 12/13/17 30 DAY SUPPLY 03/23/18 Furosemide [Lasix 40 mg Tablet] 40 mg PO BID MDD FILLED 12/13/17 30 DAY SUPPLY 03/23/18 Isosorbide Dinitrate [Isordil Titradose 20 mg Tablet] 40 mg PO Q8 MDD FILLED 12/13/17 30 DAY SUPPLY 03/23/18 Albuterol Sulfate [Ventolin 0.083% Neb 2.5 mg/3 mL Ampul] 2.5 mg NEB RTQ4HP PRN #120 vial.neb 03/30/18 Budesonide [Pulmicort Neb 0.5 mg/2 ml Ampul] 0.5 mg NEB RTQ12 #60 ampul.neb 03/30/18 Calcium Carbonate/Vitamin D3 [Os-Roni 250 mg with Vitamin D 125 Units] 1 tab PO DAILY #30 tablet 03/30/18 Carvedilol [Coreg 12.5 mg Tablet] 12.5 mg PO Q12 #60 tablet 03/30/18 Famotidine [Pepcid 20 mg Tablet] 20 mg PO Q12 #60 tablet 03/30/18 Furosemide [Lasix] 10 mg PO DAILY #30 tablet 03/30/18 Insulin Glargine,Hum.rec.anlog [Lantus Insulin Inj 300 Unit/3 ml Pen] 20 unit SUBCUT QHS #1 pen 03/30/18 Insulin Lispro [Humalog Kwikpen U-100] See Protocol SQ ACHS #1 insuln.pen 03/30/18 Salmeterol Xinafoate [Serevent Diskus 50 Mcg/Dose 28 Dose/Diskus] 50 mcg IH Q12 #1 disk 03/30/18 Acetaminophen [Tylenol 325 mg Tablet] 650 mg PO Q4HP PRN tablet 04/01/18 Cefuroxime Axetil [Ceftin 250 mg Tablet] 250 mg PO Q12 #10 tablet 04/01/18 Duloxetine HCl [Cymbalta 30 mg Capsule.dr] 30 mg PO DAILY #30 capsule.dr 04/01/18 Levothyroxine Sodium [Synthroid 0.05 mg Tablet] 0.05 mg PO Q6AM #30 tablet 04/01/18 Tiotropium Lewis [Spiriva Handihaler 5 Cap/Kit (18 Mcg/Cap)] 1 cap IH DAILY #1 kit 04/01/18 Allergies/Adverse Reactions: No Known Allergies Allergy (Verified 03/22/18 10:30) Review of Systems All systems: reviewed and no additional remarkable complaints except as stated Cardiovascular: PRESENT: dyspnea on exertion, edema Respiratory: PRESENT: cough, dyspnea Gastrointestinal: PRESENT: abdominal pain Integumentary: PRESENT: erythema Psychiatric: PRESENT: anxiety, depression Physical Exam Vital Signs: Temp Pulse Resp BP Pulse Ox 98.6 F 107 H 20 156/102 H 91 L 04/05/20 10:14 04/05/20 10:14 04/05/20 10:14 04/05/20 10:14 04/05/20 10:14 Intake & Output 04/04/20 04/05/20 04/06/20 06:59 06:59 06:59 Weight 136.985 kg General appearance: PRESENT: cooperative, mild distress - Mild to moderate distress, morbidly obese, well-developed Head exam: PRESENT: atraumatic, normocephalic Eye exam: PRESENT: conjunctiva pink. ABSENT: scleral icterus Ear exam: PRESENT: normal external ear exam. ABSENT: bleeding, drainage Mouth exam: PRESENT: moist, tongue midline Neck exam: PRESENT: other - Extremely large neck. Difficult to assess. Respiratory exam: PRESENT: rales - Possibly faint rales. Exam hindered by body habitus, symmetrical, unlabored. ABSENT: rhonchi, tachypnea, wheezes Cardiovascular exam: PRESENT: RRR, +S1, +S2. ABSENT: bradycardia, diastolic murmur, irregular rhythm, systolic murmur, tachycardia GI/Abdominal exam: PRESENT: soft, tenderness - Along the left side of the abdomen, other - Extremely large pannus with a tremendous amount of excessive adipose tissue causing extremely deep skin folds under the pannus in both groins and around the mons pubis. Rectal exam: PRESENT: deferred Gentrourinary exam: ABSENT: indwelling catheter Extremities exam: PRESENT: pedal edema, other - 3+ Musculoskeletal exam: PRESENT: ambulatory. ABSENT: normal inspection Neurological exam: PRESENT: alert, awake, oriented to person, oriented to place, oriented to time, oriented to situation, CN II-XII grossly intact. ABSENT: altered Psychiatric exam: PRESENT: anxious - Extremely anxious, depressed - Became tearful. ABSENT: agitated Skin exam: PRESENT: erythema, warm - Skin on legs warm to touch, other - Several small stasis ulcers especially left leg Results Laboratory Results: 04/05/20 14:27 04/05/20 14:27 04/05/20 04/05/20 04/05/20 14:27 14: 14:27 WBC 5.9 RBC 5.33 H Hgb 13.7 Hct 42.4 MCV 80 MCH 25.7 L MCHC 32.3 RDW 17.1 H Plt Count 219 Seg Neutrophils % 68.9 Sodium 138.3 Potassium 4.2 Chloride 98 Carbon Dioxide 34 H Anion Gap 6 BUN 23 H Creatinine 1.06 Est GFR ( Amer) > 60 Glucose 136 H Calcium 8.6 Total Bilirubin 1.2 AST 28 Alkaline Phosphatase 163 H Total Protein 7.3 Albumin 3.4 L TSH 13.20 H Urine Color Urine Appearance Urine pH Ur Specific Hundred Urine Protein Urine Glucose (UA) Urine Ketones Urine Blood Urine Nitrite Ur Leukocyte Esterase Urine WBC (Auto) Urine RBC (Auto) 04/05/20 16:54 WBC RBC Hgb Hct MCV MCH MCHC RDW Plt Count Seg Neutrophils % Sodium Potassium Chloride Carbon Dioxide Anion Gap BUN Creatinine Est GFR ( Amer) Glucose Calcium Total Bilirubin AST Alkaline Phosphatase Total Protein Albumin TSH Urine Color STRAW Urine Appearance CLEAR Urine pH 5.0 Ur Specific Hundred 1.006 Urine Protein NEGATIVE Urine Glucose (UA) NEGATIVE Urine Ketones NEGATIVE Urine Blood NEGATIVE Urine Nitrite NEGATIVE Ur Leukocyte Esterase NEGATIVE Urine WBC (Auto) 2 Urine RBC (Auto) 0 04/05/20 14:27 Troponin I 0.028 NT-Pro-B Natriuret Pep 4200 H Impressions: Acute Abdomen Series 04/05/20 13:13 IMPRESSION: Enlarged cardiac silhouette with central vascular congestion. No evidence of acute intra-abdominal/pelvic process. Assessment and Plan - Diagnosis (1) Acute on chronic combined systolic and diastolic heart failure Is this a current diagnosis for this admission?: Yes (2) Chronic obstructive pulmonary disease with (acute) exacerbation Is this a current diagnosis for this admission?: Yes (3) Acute respiratory failure with hypoxia Is this a current diagnosis for this admission?: Yes (4) Abdominal pain Qualifiers: Abdominal location: left lower quadrant Qualified Code(s): R10.32 - Left lower quadrant pain Is this a current diagnosis for this admission?: Yes (5) Panniculitis Is this a current diagnosis for this admission?: Yes (6) Obesity hypoventilation syndrome Is this a current diagnosis for this admission?: Yes (7) Stasis dermatitis of both legs Is this a current diagnosis for this admission?: Yes (8) HTN (hypertension) Qualifiers: Hypertension type: essential hypertension Qualified Code(s): I10 - Essential (primary) hypertension Is this a current diagnosis for this admission?: Yes (9) Diabetes mellitus with hyperglycemia, with long-term current use of insulin Qualifiers: Diabetes mellitus type: type 2 Qualified Code(s): E11.65 - Type 2 diabetes mellitus with hyperglycemia; Z79.4 - [facility] (current) use of insulin Is this a current diagnosis for this admission?: Yes (10) Depression Qualifiers: Depression Type: unspecified Qualified Code(s): F32.9 - Major depressive disorder, single episode, unspecified Is this a current diagnosis for this admission?: Yes (11) Sleep apnea Qualifiers: Sleep apnea type: unspecified type Qualified Code(s): G47.30 - Sleep apnea, unspecified Is this a current diagnosis for this admission?: Yes (12) Morbid obesity with BMI of 50.0-59.9, adult Is this a current diagnosis for this admission?: Yes - Plan Summary Summary: (1) Acute on chronic systolic and diastolic congestive heart failure (2) COPD (3) Acute respiratory failure with hypoxia (4) Abdominal pain (5) Panniculitis (6) Obesity hypoventilation syndrome (7) Stasis dermatitis of both legs (8) HTN (hypertension) (9) Diabetes mellitus with hyperglycemia, with long-term current use of insulin (10) Depression (11) Sleep apnea (12) Morbid obesity with BMI of 50.0-59.9, adult 04/05/2020 The patient has cardiomegaly and most likely systolic and diastolic heart failure. An echocardiogram would be ineffective due to her body habitus. I have increased her furosemide and we will continue the carvedilol and isosorbide. Will monitor electrolytes and renal function. Covid test was negative. Respiratory failure-supplement oxygen to keep saturations between 90 and 94%. COPD-we will consolidate inhalers to Trelegy and have nebulizers available as needed. I do not believe she needs intravenous steroids. Abdominal pain-likely due to infection under her pannus. I have started clindamycin. She might benefit from skin fold moisture management with a product such as Interdry Morbid obesity-BMI is 51.8. Her obesity is contributing to obesity hypoventilation syndrome, sleep apnea and is very high risk with her comorbidities. Stasis dermatitis both legs-clindamycin. The patient might benefit from compression therapy. Hypertension-continue current cardiac meds Diabetes mellitus-we will use sliding scale. If her sugars increase can add back her Lantus Depression-continue Cymbalta The patient is very anxious. I did provide analgesia and NSAID as being therapy. Ensure will be a big relief with her Covid negative status. She is anxious to return to [place] and I believe her date for departure is April 13. - Time Time Spent with patient: 35 or more minutes Medications reviewed and adjusted accordingly: Yes Anticipated Discharge Disposition: Home with Home Health Anticipated Discharge Timeframe: Unknown - Inpatient Certification Based on my medical assessment, after consideration of the patient's comorbidities, presenting symptoms, or acuity I expect that the services needed warrant INPATIENT care.: Yes I certify that my determination is in accordance with my understanding of Medicare's requirements for reasonable and necessary INPATIENT services [42 CFR 412.3e].: Yes Medical Necessity: Significant Comorbidiites Make Outpatient Treatment Too Risky, Need Close Monitoring Due to Risk of Patient Decompensation, Need For Continuous Telemetry Monitoring, Need for Pain Control, Need for IV Antibiotics Post Hospital Care: D/C Immigration Paralegal Documentation
[2020-04-05] MEDS ORDERED: LISINOPRIL 5 MG TABLET PO ONE (19:15)
[2020-04-05] MEDS ORDERED: NICOTINE 21 MG/24 HR PATCH.TD24 TD PRN (21:22)
[2020-04-05] MEDS: CARVEDILOL 12.5 MG TABLET PO SCH (22:00)
[2020-04-05] MEDS: CLINDAMYCIN 900 MG/D5W RTU 900 MG/50 ML RTUPB IV SCH (22:00)
[2020-04-05] MEDS: ASPIRIN 81 MG TABLET, ENT COATED PO SCH (22:00)
[2020-04-05] MEDS: HEPARIN SOD (PORCINE) 5,000 UNIT/ML 1 ML VIAL SUBCUT SCH (22:01)
[2020-04-05] MEDS: FUROSEMIDE INJ/PF 40 MG/4 ML SDV IV SCH (22:01)
[2020-04-05] MEDS: INSULIN LISPRO 100 UNIT/ML 3 ML VIAL SUBCUT SCH (22:09)
[2020-04-05] MEDS: ISOSORBIDE DINITRATE 20 MG TABLET PO SCH (22:38)
[2020-04-06] MEDS: TEMAZEPAM 7.5 MG CAPSULE PO PRN ×2 (03:22→22:01)
[2020-04-06] MEDS ORDERED: LEVOTHYROXINE SODIUM 0.075 MG TABLET ONE (05:46)
[2020-04-06] MEDS ORDERED: LEVOTHYROXINE SODIUM 0.05 MG TABLET PO SCH (06:00)
[2020-04-06] MEDS: LEVOTHYROXINE SODIUM 0.075 MG TABLET PO SCH (06:05)
[2020-04-06] MEDS: CLINDAMYCIN 900 MG/D5W RTU 900 MG/50 ML RTUPB IV SCH ×3 (06:05→21:52)
[2020-04-06] MEDS: ISOSORBIDE DINITRATE 20 MG TABLET PO SCH ×3 (06:05→22:01)
[2020-04-06] MEDS: HEPARIN SOD (PORCINE) 5,000 UNIT/ML 1 ML VIAL SUBCUT SCH ×3 (06:05→21:52)
[2020-04-06 06:32] LABS: ABSOLUTE EOSINOPHILS # (AUTO) 0.2 10^3/uL (0.0-0.6); ABSOLUTE LYMPHOCYTES (AUTO) 0.8 10^3/uL (0.5-4.7); ABSOLUTE MONOCYTES (AUTO) 0.5 10^3/uL (0.1-1.4); ABSOLUTE NEUT (AUTO) 3.3 10^3/uL (1.7-8.2); BASOPHILS % (AUTO) 0.5 % (0-2); HEMATOCRIT 37.9 % (36.0-47.0); HEMOGLOBIN 12.2 g/dL (12.0-15.5); LYMPHOCYTES % (AUTO) 16.2 % (13-45); MEAN CORPUSCULAR HEMOGLOBIN 25.6 pg (27.0-33.4); MEAN CORPUSCULAR HGB CONC 32.1 g/dL (32.0-36.0); MEAN CORPUSCULAR VOLUME 80 fl (80-97); MONOCYTES % (AUTO) 10.9 % (3-13); PLATELET COUNT 190 10^3/uL (150-450); RED BLOOD COUNT 4.76 10^6/uL (3.72-5.28); RED CELL DISTRIBUTION WIDTH 16.9 % (11.5-14.0); SEGMENTED NEUTROPHILS % (AUTO) 68.4 % (42-78); TOTAL CELLS COUNTED % (AUTO) 100 %; WHITE BLOOD COUNT 4.9 10^3/uL (4.0-10.5)
[2020-04-06 06:46] LABS: ANION GAP 8 (5-19); BLOOD UREA NITROGEN 22 mg/dL (7-20); CALCIUM 8.4 mg/dL (8.4-10.2); CARBON DIOXIDE 32 mmol/L (22-30); CHLORIDE 99 mmol/L (98-107); CHOLESTEROL 125.81 mg/dL (0-200); GLUCOSE 161 mg/dL (75-110); POTASSIUM 4.1 mmol/L (3.6-5.0); TRIGLYCERIDES 73 mg/dL (<150)
[2020-04-06 06:57] LABS: DIRECT LDL 75 mg/dL (<100)
[2020-04-06 07:02] LABS: FREE T3 3.59 pg/mL (2.77-5.27); FREE T4 (FREE THYROXINE) 1.14 ng/dL (0.78-2.19)
[2020-04-06] MEDS: INSULIN LISPRO 100 UNIT/ML 3 ML VIAL SUBCUT SCH ×4 (08:38→21:51)
[2020-04-06] MEDS: DULOXETINE HCL 30 MG CAPSULE.DR PO SCH (09:06)
[2020-04-06] MEDS: CARVEDILOL 12.5 MG TABLET PO SCH ×2 (09:06→21:52)
[2020-04-06] MEDS: DOCUSATE SODIUM 100 MG CAPSULE PO SCH ×2 (09:06→18:05)
[2020-04-06] MEDS: FUROSEMIDE INJ/PF 40 MG/4 ML SDV IV SCH (09:06)
[2020-04-06] MEDS ORDERED: FLUTICASONE/UMECLIDIN/VILANTER 100-62.5-25 MCG/DOSE IH SCH (10:00)
--- NOTE | 2020-04-06 10:40 | RADIOLOGY REPORT (SQ) ---
EXAM DESCRIPTION: CHEST SINGLE VIEW IMAGES COMPLETED DATE/TIME: 04/05/2020 6:43 pm REASON FOR STUDY: resp failure COMPARISON: 03/28/2018 NUMBER OF VIEWS: One view. TECHNIQUE: Single frontal radiographic image of the chest acquired. LIMITATIONS: Body habitus. FINDINGS: LUNGS AND PLEURA: Hypoventilatory changes. No infiltrate. MEDIASTINUM AND HEART: Stable heart size and mediastinal structures. BONY STRUCTURES: No acute findings. HARDWARE: None. OTHER: No other significant finding. IMPRESSION: STABLE APPEARANCE OF THE CHEST. TECHNICAL DOCUMENTATION: JOB ID: [id number] Reading location - IP/workstation name: [email or web address]
[2020-04-06] MEDS ORDERED: BUMETANIDE INJ/PF 1 MG/4 ML SDV IV SCH (17:00)
--- NOTE | 2020-04-06 18:07 | PDOC PROGRESS REPORT ---
Subjective Date:: 04/06/20 Reason For Visit: CHF(CONGESTIVE HEART FAILURE),OBESITY Physical Exam Vital Signs: Temp Pulse Resp BP Pulse Ox 97.6 F 75 20 119/76 91 L 04/06/20 13:46 04/06/20 14:00 04/06/20 13:46 04/06/20 13:46 04/06/20 13:46 Intake & Output 04/05/20 04/06/20 04/07/20 06:59 06:59 06:59 Intake Total 50 880 Output Total 400 Balance -350 880 Weight 145.6 kg Results Laboratory Results: 04/06/20 06:00 04/06/20 06:00 04/06/20 04/06/20 04/06/20 06:00 06:00 06:00 WBC 4.9 RBC 4.76 Hgb 12.2 Hct 37.9 MCV 80 MCH 25.6 L MCHC 32.1 RDW 16.9 H Plt Count 190 Seg Neutrophils % 68.4 Sodium 138.5 Potassium 4.1 Chloride 99 Carbon Dioxide 32 H Anion Gap 8 BUN 22 H Creatinine 0.92 Est GFR ( Amer) > 60 Glucose 161 H Calcium 8.4 Magnesium 1.7 Triglycerides 73 Cholesterol 125.81 LDL Cholesterol Direct 75 VLDL Cholesterol 15.0 HDL Cholesterol 31 L Free T4 1.14 Free T3 pg/mL 3.59 04/05/20 16:54 Clean Catch Midstream Urine Culture - Final Mixed Urogenital Maritza 04/05/20 04/05/20 04/06/20 14:27 23:13 06:00 Troponin I 0.028 0.034 0.036 NT-Pro-B Natriuret Pep 4200 H Impressions: Acute Abdomen Series 04/05/20 13:13 IMPRESSION: Enlarged cardiac silhouette with central vascular congestion. No evidence of acute intra-abdominal/pelvic process. Chest X-Ray 04/05/20 18:14 IMPRESSION: STABLE APPEARANCE OF THE CHEST. Assessment and Plan - Diagnosis (1) CHF (congestive heart failure) Qualifiers: Heart failure type: unspecified Heart failure chronicity: acute on chronic Qualified Code(s): I50.9 - Heart failure, unspecified Is this a current diagnosis for this admission?: Yes Plan: Patient has significant anasarca. She endorses history of heart failure. Fluid restriction, strict I's and O's, telemetry monitoring Switch diuresis to Bumex 1 mg IV 3 times daily. Resume metolazone Check echocardiogram (2) Panniculitis Is this a current diagnosis for this admission?: Yes Plan: Continue clindamycin (3) Obesity hypoventilation syndrome Is this a current diagnosis for this admission?: Yes Plan: Nocturnal CPAP. Monitor for any signs of CO2 retention. (4) Sleep apnea Qualifiers: Sleep apnea type: unspecified type Qualified Code(s): G47.30 - Sleep apnea, unspecified Is this a current diagnosis for this admission?: Yes Plan: Nocturnal CPAP (5) Stasis dermatitis of both legs Is this a current diagnosis for this admission?: Yes Plan: Leg elevation (6) Hypothyroid Qualifiers: Hypothyroidism type: unspecified Qualified Code(s): E03.9 - Hypothyroidism, unspecified Is this a current diagnosis for this admission?: Yes Plan: Continue increased dose of Synthroid as TSH was quite elevated. (7) Diabetes mellitus Is this a current diagnosis for this admission?: Yes Plan: Sliding scale insulin. A1c is 8. Will start on Metformin. (8) Morbid obesity with BMI of 50.0-59.9, adult Is this a current diagnosis for this admission?: Yes - Time Time Spent with patient: 15-24 minutes Anticipated Discharge Disposition: Home, Self Care Anticipated Discharge Timeframe: within 72 hours
[2020-04-06] MEDS: ASPIRIN 81 MG TABLET, ENT COATED PO SCH (21:52)
[2020-04-07] MEDS: ACETAMINOPHEN 325 MG TABLET PO PRN (04:00)
[2020-04-07] MEDS: HEPARIN SOD (PORCINE) 5,000 UNIT/ML 1 ML VIAL SUBCUT SCH ×3 (05:22→22:12)
[2020-04-07] MEDS: CLINDAMYCIN 900 MG/D5W RTU 900 MG/50 ML RTUPB IV SCH ×3 (05:22→22:12)
[2020-04-07] MEDS: ISOSORBIDE DINITRATE 20 MG TABLET PO SCH ×3 (05:22→22:10)
[2020-04-07] MEDS: LEVOTHYROXINE SODIUM 0.075 MG TABLET PO SCH (05:22)
[2020-04-07] MEDS ORDERED: LEVOTHYROXINE SODIUM 0.05 MG TABLET PO SCH (06:00)
[2020-04-07 07:19] LABS: ABSOLUTE EOSINOPHILS # (AUTO) 0.1 10^3/uL (0.0-0.6); ABSOLUTE LYMPHOCYTES (AUTO) 0.8 10^3/uL (0.5-4.7); ABSOLUTE MONOCYTES (AUTO) 0.5 10^3/uL (0.1-1.4); ABSOLUTE NEUT (AUTO) 3.2 10^3/uL (1.7-8.2); BASOPHILS % (AUTO) 0.6 % (0-2); EOSINOPHILS % (AUTO) 2.9 % (0-6); HEMOGLOBIN 12.1 g/dL (12.0-15.5); LYMPHOCYTES % (AUTO) 17.5 % (13-45); MEAN CORPUSCULAR HEMOGLOBIN 25.7 pg (27.0-33.4); MEAN CORPUSCULAR HGB CONC 31.9 g/dL (32.0-36.0); MEAN CORPUSCULAR VOLUME 81 fl (80-97); MONOCYTES % (AUTO) 10.2 % (3-13); PLATELET COUNT 178 10^3/uL (150-450); RED BLOOD COUNT 4.73 10^6/uL (3.72-5.28); RED CELL DISTRIBUTION WIDTH 16.9 % (11.5-14.0); SEGMENTED NEUTROPHILS % (AUTO) 68.8 % (42-78); TOTAL CELLS COUNTED % (AUTO) 100 %; WHITE BLOOD COUNT 4.7 10^3/uL (4.0-10.5)
[2020-04-07 07:39] LABS: ALBUMIN 3.1 g/dL (3.5-5.0); ALKALINE PHOSPHATASE 129 U/L (38-126); ANION GAP 8 (5-19); ASPARTATE AMINO TRANSFERASE 26 U/L (14-36); BILIRUBIN,DIRECT 0.6 mg/dL (0.0-0.4); BILIRUBIN,TOTAL 1.2 mg/dL (0.2-1.3); BLOOD UREA NITROGEN 26 mg/dL (7-20); CALCIUM 8.3 mg/dL (8.4-10.2); CARBON DIOXIDE 31 mmol/L (22-30); CHLORIDE 96 mmol/L (98-107); GLUCOSE 126 mg/dL (75-110); POTASSIUM 4.7 mmol/L (3.6-5.0); TOTAL PROTEIN 6.6 g/dL (6.3-8.2)
[2020-04-07] MEDS: INSULIN LISPRO 100 UNIT/ML 3 ML VIAL SUBCUT SCH ×4 (07:42→22:19)
[2020-04-07] MEDS ORDERED: INFLUENZA QUAD (6MOS+) 2020-21 VAC 0.5 ML SYR IM ONE (08:00)
[2020-04-07] MEDS: DULOXETINE HCL 30 MG CAPSULE.DR PO SCH (09:33)
[2020-04-07] MEDS: MAGNESIUM OXIDE 400 MG TABLET PO SCH ×2 (09:33→18:34)
[2020-04-07] MEDS: METFORMIN HCL 500 MG TABLET PO SCH ×2 (09:33→18:34)
[2020-04-07] MEDS: CARVEDILOL 12.5 MG TABLET PO SCH ×2 (09:33→22:13)
[2020-04-07] MEDS: METOLAZONE 2.5 MG TABLET PO SCH (09:34)
[2020-04-07] MEDS: DOCUSATE SODIUM 100 MG CAPSULE PO SCH ×2 (09:34→18:34)
[2020-04-07] MEDS: BUMETANIDE INJ/PF 1 MG/4 ML SDV IV SCH ×3 (09:35→18:35)
[2020-04-07] MEDS: FLUTICASONE/VILANTEROL 100-25 MCG/DOSE IH SCH (09:35)
--- NOTE | 2020-04-07 16:23 | PDOC PROGRESS REPORT ---
Subjective Date:: 04/07/20 Subjective:: Some SOB today. Otherwise states that she feels comfortable and denies any chest pain. Reason For Visit: CHF(CONGESTIVE HEART FAILURE),OBESITY Physical Exam Vital Signs: Temp Pulse Resp BP Pulse Ox 97.7 F 74 22 H 108/71 97 04/07/20 12:31 04/07/20 12:31 04/07/20 12:31 04/07/20 12:31 04/07/20 12:31 Intake & Output 04/06/20 04/07/20 04/08/20 06:59 06:59 06:59 Intake Total 50 1080 500 Output Total 400 700 Balance -350 380 500 Weight 145.6 kg 148.3 kg General appearance: PRESENT: no acute distress, cooperative Eye exam: PRESENT: periorbital swelling - mild Neck exam: ABSENT: JVD Respiratory exam: PRESENT: crackles - minimal basilar, symmetrical, unlabored, wheezes - minimal expiratory. ABSENT: tachypnea Cardiovascular exam: PRESENT: RRR, +S1, +S2. ABSENT: tachycardia GI/Abdominal exam: PRESENT: soft. ABSENT: rebound, rigid, tenderness Extremities exam: PRESENT: pedal edema Neurological exam: PRESENT: alert, awake, oriented to person, oriented to place, oriented to time Psychiatric exam: ABSENT: agitated, anxious Results Laboratory Results: 04/07/20 06:30 04/07/20 06:30 04/07/20 04/07/20 06:30 06:30 WBC 4.7 RBC 4.73 Hgb 12.1 Hct 38.0 MCV 81 MCH 25.7 L MCHC 31.9 L RDW 16.9 H Plt Count 178 Seg Neutrophils % 68.8 Sodium 134.7 L Potassium 4.7 Chloride 96 L Carbon Dioxide 31 H Anion Gap 8 BUN 26 H Creatinine 1.15 Est GFR ( Amer) > 60 Glucose 126 H Calcium 8.3 L Magnesium 1.7 Total Bilirubin 1.2 AST 26 Alkaline Phosphatase 129 H Total Protein 6.6 Albumin 3.1 L 04/05/20 16:54 Clean Catch Midstream Urine Culture - Final Mixed Urogenital Maritza 04/05/20 04/05/20 04/06/20 14:27 23:13 06:00 Troponin I 0.028 0.034 0.036 NT-Pro-B Natriuret Pep 4200 H Impressions: Acute Abdomen Series 04/05/20 13:13 IMPRESSION: Enlarged cardiac silhouette with central vascular congestion. No evidence of acute intra-abdominal/pelvic process. Chest X-Ray 04/05/20 18:14 IMPRESSION: STABLE APPEARANCE OF THE CHEST. Assessment and Plan - Diagnosis (1) CHF (congestive heart failure) Qualifiers: Heart failure type: unspecified Heart failure chronicity: acute on chronic Qualified Code(s): I50.9 - Heart failure, unspecified Is this a current diagnosis for this admission?: Yes Plan: Patient has significant anasarca. She endorses history of heart failure. Fluid restriction, strict I's and O's, telemetry monitoring Bumex increased to 2mg mg IV 3 times daily. Metolazone Check echocardiogram Daily metabolic panel electrolytes (2) Panniculitis Is this a current diagnosis for this admission?: Yes Plan: Continue clindamycin (3) Obesity hypoventilation syndrome Is this a current diagnosis for this admission?: Yes Plan: Switch from nocturnal CPAP to BiPAP. (4) Sleep apnea Qualifiers: Sleep apnea type: unspecified type Qualified Code(s): G47.30 - Sleep apnea, unspecified Is this a current diagnosis for this admission?: Yes (5) Stasis dermatitis of both legs Is this a current diagnosis for this admission?: Yes Plan: Leg elevation (6) Hypothyroid Qualifiers: Hypothyroidism type: unspecified Qualified Code(s): E03.9 - Hypothyroidism, unspecified Is this a current diagnosis for this admission?: Yes Plan: Continue increased dose of Synthroid as TSH was quite elevated. (7) Diabetes mellitus Is this a current diagnosis for this admission?: Yes (8) Morbid obesity with BMI of 50.0-59.9, adult Is this a current diagnosis for this admission?: Yes - Time Time Spent with patient: Less than 15 minutes Anticipated Discharge Disposition: Home, Self Care Anticipated Discharge Timeframe: within 72 hours
--- NOTE | 2020-04-07 18:21 | XCELERA REPORT ---
[address] [address] Transthoracic Echocardiogram Report Name: TRENA BENITEZ Age: 50 yrs Gender: Female : 1970 Patient Status: [facility] Date: 04/07/2020 10:26 AM History: CHF Malena Height: 64 in Weight: 320 lb BSA: 2.4 m2 Procedure: A complete two-dimensional transthoracic echocardiogram was performed (2D, M-mode, spectral and color flow Doppler). Reason For Study: chf, anasarca Previous Evaluation: No previous studies were available. History: CHF Anasarca. Ordering Physician: SADIA JONES Performed By: Yovani Mcfarland Interpretation Summary Left ventricular systolic function is mildly reduced. The Ejection Fraction estimate is 40-45% The right ventricular systolic function is moderately reduced. There is a trace amount of mitral regurgitation There is a moderate amount of tricuspid regurgitation There is moderate pulmonary hypertension by echo There is no pericardial effusion. MMode/2D Measurements & Calculations RVDd: 3.9 cm LVIDd: 5.5 cm FS: 24.3 % Ao root diam: 3.3 cm IVSd: 1.2 cm LVIDs: 4.2 cm EDV(Teich): 148.7 ml Ao root area: 8.5 cm2 LVPWd: 1.2 cm ESV(Teich): 77.6 ml LA dimension: 5.1 cm EF(Teich): 47.8 % Doppler Measurements & Calculations MV E max vikash: MV P1/2t max vikash: Ao V2 max: LV V1 max P.4 cm/sec 103.8 cm/sec 165.1 cm/sec 2.6 mmHg MV A max vikash: MV P1/2t: 62.0 msec Ao max PG: LV V1 max: 108.3 cm/sec MVA(P1/2t): 3.6 cm2 10.9 mmHg 80.1 cm/sec MV E/A: 0.87 MV dec slope: 490.4 cm/sec2 MV dec time: 0.27 sec PA V2 max: PI end-d vikash: TR max vikash: MV P1/2t-pr_phl: 77.9 cm/sec 164.0 cm/sec 322.5 cm/sec 62.0 msec PA max P.4 mmHg TR max P.6 mmHg Left Ventricle The left ventricle is borderline dilated. There is moderate concentric left ventricular hypertrophy. Left ventricular systolic function is mildly reduced. The Ejection Fraction estimate is 40-45%. LV diastolic function not assessed. Right Ventricle The right ventricle is moderately dilated. The right ventricular systolic function is moderately reduced. Atria The right atrium is moderately dilated. The left atrium is moderately dilated. Mitral Valve Calcified mitral apparatus. There is no evidence of mitral valve prolapse. No significant mitral valve stenosis. There is a trace amount of mitral regurgitation. Aortic Valve The aortic valve opens well. The aortic valve is not well visualized secondary to technical limitations. The aortic valve is sclerotic and shows some degree of functional abnormality. The aortic valve is mildly calcified. There is no aortic valve stenosis. There is a trace amount of aortic regurgitation. Tricuspid Valve The tricuspid valve is normal in structure and function. There is a moderate amount of tricuspid regurgitation. Right ventricular systolic pressure is estimated to be elevated at 50-60mmHg. There is moderate pulmonary hypertension by echo. Pulmonic Valve The pulmonic valve is not well visualized. There is no pulmonic valvular stenosis. There is a mild amount of pulmonic regurgitation. Great Vessels The aortic root is normal size. The inferior vena cava appeared dilated and decreased < 50% with respiration (RAP 15-20 mmHg). Effusions There is no pericardial effusion. Incidental Findings Ascites noted. : SADIA JONES Anil
[2020-04-07] MEDS: ASPIRIN 81 MG TABLET, ENT COATED PO SCH (22:13)
[2020-04-08] MEDS: ACETAMINOPHEN 325 MG TABLET PO PRN (01:44)
[2020-04-08 05:27] LABS: VENOUS BLOOD BASE EXCESS 2.7 mmol/L; VENOUS BLOOD HCO3 30.7 mmol/L (20-32); VENOUS BLOOD PH 7.31 (7.30-7.42)
[2020-04-08] MEDS: HEPARIN SOD (PORCINE) 5,000 UNIT/ML 1 ML VIAL SUBCUT SCH ×3 (05:31→21:34)
[2020-04-08] MEDS: CLINDAMYCIN 900 MG/D5W RTU 900 MG/50 ML RTUPB IV SCH ×3 (05:31→21:35)
[2020-04-08] MEDS: ISOSORBIDE DINITRATE 20 MG TABLET PO SCH ×3 (05:31→21:34)
[2020-04-08] MEDS: LEVOTHYROXINE SODIUM 0.075 MG TABLET PO SCH (05:31)
[2020-04-08 05:54] LABS: ALBUMIN 3.1 g/dL (3.5-5.0); ALKALINE PHOSPHATASE 139 U/L (38-126); ANION GAP 7 (5-19); ASPARTATE AMINO TRANSFERASE 23 U/L (14-36); BILIRUBIN,DIRECT 0.7 mg/dL (0.0-0.4); BILIRUBIN,TOTAL 1.3 mg/dL (0.2-1.3); BLOOD UREA NITROGEN 30 mg/dL (7-20); CALCIUM 8.6 mg/dL (8.4-10.2); CARBON DIOXIDE 33 mmol/L (22-30); CHLORIDE 94 mmol/L (98-107); GLUCOSE 127 mg/dL (75-110); POTASSIUM 4.7 mmol/L (3.6-5.0); TOTAL PROTEIN 6.6 g/dL (6.3-8.2)
[2020-04-08] MEDS: INSULIN LISPRO 100 UNIT/ML 3 ML VIAL SUBCUT SCH ×4 (08:08→21:34)
[2020-04-08] MEDS: METFORMIN HCL 500 MG TABLET PO SCH ×2 (10:26→18:01)
[2020-04-08] MEDS: DULOXETINE HCL 30 MG CAPSULE.DR PO SCH (10:26)
[2020-04-08] MEDS: CARVEDILOL 12.5 MG TABLET PO SCH ×2 (10:26→21:34)
[2020-04-08] MEDS: MAGNESIUM OXIDE 400 MG TABLET PO SCH (10:26)
[2020-04-08] MEDS: DOCUSATE SODIUM 100 MG CAPSULE PO SCH ×2 (10:27→17:08)
[2020-04-08] MEDS: METOLAZONE 2.5 MG TABLET PO SCH (10:27)
[2020-04-08] MEDS: FLUTICASONE/VILANTEROL 100-25 MCG/DOSE IH SCH (10:27)
--- NOTE | 2020-04-08 16:39 | PDOC PROGRESS REPORT ---
Subjective Date:: 04/08/20 Subjective:: Patient complaining of shortness of breath but with some improvement. Also comp lains of pain around the site of her family whenever she starts urinating. Reason For Visit: CHF(CONGESTIVE HEART FAILURE),OBESITY Physical Exam Vital Signs: Temp Pulse Resp BP Pulse Ox 97.5 F 78 20 116/72 97 04/08/20 11:28 04/08/20 14:00 04/08/20 11:28 04/08/20 11:28 04/08/20 11:28 Intake & Output 04/07/20 04/08/20 04/09/20 06:59 06:59 06:59 Intake Total 1080 870 Output Total 700 1875 Balance 380 -1005 Weight 148.3 kg 148.1 kg General appearance: PRESENT: no acute distress, cooperative Neck exam: ABSENT: JVD Respiratory exam: PRESENT: clear to auscultation aime, symmetrical, unlabored. ABSENT: tachypnea, wheezes Cardiovascular exam: PRESENT: RRR, +S1, +S2. ABSENT: tachycardia GI/Abdominal exam: PRESENT: soft. ABSENT: tenderness Extremities exam: PRESENT: pedal edema - Nonpitting Neurological exam: PRESENT: alert, awake Results Laboratory Results: 04/07/20 06:30 04/08/20 05:07 04/08/20 04/08/20 05:07 05:07 VBG pH 7.31 VBG pCO2 63.0 VBG HCO3 30.7 VBG Base Excess 2.7 Sodium 133.5 L Potassium 4.7 Chloride 94 L Carbon Dioxide 33 H Anion Gap 7 BUN 30 H Creatinine 1.34 H Est GFR ( Amer) 50 L Glucose 127 H Calcium 8.6 Magnesium 1.7 Total Bilirubin 1.3 AST 23 Alkaline Phosphatase 139 H Total Protein 6.6 Albumin 3.1 L 04/05/20 04/05/20 04/06/20 14:27 23:13 06:00 Troponin I 0.028 0.034 0.036 NT-Pro-B Natriuret Pep 4200 H Impressions: Acute Abdomen Series 04/05/20 13:13 IMPRESSION: Enlarged cardiac silhouette with central vascular congestion. No evidence of acute intra-abdominal/pelvic process. Chest X-Ray 04/05/20 18:14 IMPRESSION: STABLE APPEARANCE OF THE CHEST. Assessment and Plan - Diagnosis (1) CHF (congestive heart failure) Qualifiers: Heart failure type: systolic Heart failure chronicity: acute on chronic Qualified Code(s): I50.23 - Acute on chronic systolic (congestive) heart failure Is this a current diagnosis for this admission?: Yes Plan: Patient has significant anasarca. Fluid restriction, strict I's and O's, telemetry monitoring Hold Bumex for today given felicia FELICIA showing biventricular failure and moderate pulmonary hypertension with EF of 40 to 45%. Metolazone Daily metabolic panel electrolytes (2) Panniculitis Is this a current diagnosis for this admission?: Yes Plan: Continue clindamycin (3) Obesity hypoventilation syndrome Is this a current diagnosis for this admission?: Yes Plan: nocturnal BiPAP. (4) Sleep apnea Qualifiers: Sleep apnea type: unspecified type Qualified Code(s): G47.30 - Sleep apnea, unspecified Is this a current diagnosis for this admission?: Yes (5) Stasis dermatitis of both legs Is this a current diagnosis for this admission?: Yes (6) Hypothyroid Qualifiers: Hypothyroidism type: unspecified Qualified Code(s): E03.9 - Hypothyroidism, unspecified Is this a current diagnosis for this admission?: Yes Plan: Continue increased dose of Synthroid as TSH was quite elevated. (7) Diabetes mellitus Is this a current diagnosis for this admission?: Yes (8) Morbid obesity with BMI of 50.0-59.9, adult Is this a current diagnosis for this admission?: Yes - Time Anticipated Discharge Disposition: Home, Self Care Anticipated Discharge Timeframe: within 48 hours
[2020-04-08] MEDS: ASPIRIN 81 MG TABLET, ENT COATED PO SCH (21:34)
[2020-04-09] MEDS: CLINDAMYCIN HCL 150 MG CAPSULE PO SCH ×2 (06:22→13:30)
[2020-04-09] MEDS: HEPARIN SOD (PORCINE) 5,000 UNIT/ML 1 ML VIAL SUBCUT SCH ×3 (06:24→23:24)
[2020-04-09] MEDS: LEVOTHYROXINE SODIUM 0.075 MG TABLET PO SCH (06:24)
[2020-04-09] MEDS: ISOSORBIDE DINITRATE 20 MG TABLET PO SCH ×3 (06:24→22:18)
[2020-04-09] MEDS: INSULIN LISPRO 100 UNIT/ML 3 ML VIAL SUBCUT SCH ×4 (07:09→22:16)
[2020-04-09 07:33] LABS: ANION GAP 6 (5-19); BLOOD UREA NITROGEN 34 mg/dL (7-20); CALCIUM 8.8 mg/dL (8.4-10.2); CARBON DIOXIDE 34 mmol/L (22-30); CHLORIDE 93 mmol/L (98-107); GLUCOSE 126 mg/dL (75-110); POTASSIUM 4.6 mmol/L (3.6-5.0)
[2020-04-09] MEDS ORDERED: NORMAL SALINE 1000 ML 500 ML IV ONE (09:32)
[2020-04-09] MEDS: DOCUSATE SODIUM 100 MG CAPSULE PO SCH ×2 (10:26→17:02)
[2020-04-09] MEDS: CARVEDILOL 12.5 MG TABLET PO SCH ×2 (10:30→23:23)
[2020-04-09] MEDS: DULOXETINE HCL 30 MG CAPSULE.DR PO SCH (10:30)
[2020-04-09] MEDS: METFORMIN HCL 500 MG TABLET PO SCH ×2 (10:30→17:16)
[2020-04-09] MEDS: FLUTICASONE/VILANTEROL 100-25 MCG/DOSE IH SCH (10:30)
[2020-04-09] MEDS: METOLAZONE 2.5 MG TABLET PO SCH (10:34)
[2020-04-09] MEDS ORDERED: NORMAL SALINE 1000 ML 250 ML IV ONE (17:28)
--- NOTE | 2020-04-09 18:16 | PDOC PROGRESS REPORT ---
Subjective Date:: 04/09/20 Subjective:: Denies shortness of breath today. Still feels like she has fluid in her leg tho ugh most of it now is nonpitting edema. Quite fatigued and sleeps most of the day. She states that she has not been taking her Synthroid at home. Reason For Visit: CHF(CONGESTIVE HEART FAILURE),OBESITY Physical Exam Vital Signs: Temp Pulse Resp BP Pulse Ox 98.2 F 77 19 116/80 93 04/09/20 11:45 04/09/20 14:00 04/09/20 17:16 04/09/20 11:45 04/09/20 17:16 Intake & Output 04/08/20 04/09/20 04/10/20 06:59 06:59 06:59 Intake Total 870 490 50 Output Total 1875 1140 Balance -1005 -650 50 Weight 148.1 kg 149.1 kg General appearance: PRESENT: no acute distress, cooperative, morbidly obese. ABSENT: thin Neck exam: ABSENT: JVD Respiratory exam: PRESENT: clear to auscultation aime, unlabored. ABSENT: accessory muscle use, crackles, wheezes Cardiovascular exam: PRESENT: RRR, +S1, +S2. ABSENT: tachycardia GI/Abdominal exam: PRESENT: soft. ABSENT: rebound, rigid, tenderness Extremities exam: PRESENT: pedal edema - Nonpitting Neurological exam: PRESENT: oriented to person, oriented to place, oriented to time, oriented to situation. ABSENT: aphasic Psychiatric exam: ABSENT: agitated, anxious Focused psych exam: ABSENT: pressured speech Skin exam: ABSENT: jaundice Results Laboratory Results: 04/07/20 06:30 04/09/20 05:53 04/09/20 05:53 Sodium 133.0 L Potassium 4.6 Chloride 93 L Carbon Dioxide 34 H Anion Gap 6 BUN 34 H Creatinine 1.37 H Est GFR ( Amer) 49 L Glucose 126 H Calcium 8.8 Magnesium 1.8 04/05/20 04/05/20 04/06/20 14:27 23:13 06:00 Troponin I 0.028 0.034 0.036 NT-Pro-B Natriuret Pep 4200 H Impressions: Acute Abdomen Series 04/05/20 13:13 IMPRESSION: Enlarged cardiac silhouette with central vascular congestion. No evidence of acute intra-abdominal/pelvic process. Chest X-Ray 04/05/20 18:14 IMPRESSION: STABLE APPEARANCE OF THE CHEST. Assessment and Plan - Diagnosis (1) CHF (congestive heart failure) Qualifiers: Heart failure type: systolic Heart failure chronicity: acute on chronic Qualified Code(s): I50.23 - Acute on chronic systolic (congestive) heart failure Is this a current diagnosis for this admission?: Yes Plan: Patient has significant anasarca. Fluid restriction, strict I's and O's, telemetry monitoring Diuresis discontinued due to FELICIA. Actually now most of the edema left is n onpitting. Actually given some IV fluid back given FELICIA. Echo showing biventricular failure and moderate pulmonary hypertension with EF of 40 to 45%. Daily metabolic panel electrolytes (2) Obesity hypoventilation syndrome Is this a current diagnosis for this admission?: Yes Plan: nocturnal BiPAP. Increase BiPAP settings to 18/10. Patient has been instructed that she will need a BiPAP instead of CPAP when she goes back to [place] in a few days. (3) Hypothyroid Qualifiers: Hypothyroidism type: unspecified Qualified Code(s): E03.9 - Hypothyroidism, unspecified Is this a current diagnosis for this admission?: Yes Plan: Noncompliant with Synthroid. TSH quite elevated. Continue Synthroid. Cou nseled on importance of compliance. Likely contributing to her symptoms of fatigue, weight gain and may be even the nonpitting edema. (4) Panniculitis Is this a current diagnosis for this admission?: Yes Plan: Having some diarrhea. Stop clindamycin. Start doxycycline for a few days (5) Sleep apnea Qualifiers: Sleep apnea type: unspecified type Qualified Code(s): G47.30 - Sleep apnea, unspecified Is this a current diagnosis for this admission?: Yes (6) Stasis dermatitis of both legs Is this a current diagnosis for this admission?: Yes (7) Diabetes mellitus Is this a current diagnosis for this admission?: Yes (8) Morbid obesity with BMI of 50.0-59.9, adult Is this a current diagnosis for this admission?: Yes - Time Time Spent with patient: 15-24 minutes Anticipated Discharge Disposition: Home, Self Care Anticipated Discharge Timeframe: within 48 hours
[2020-04-09] MEDS: ASPIRIN 81 MG TABLET, ENT COATED PO SCH (23:23)
[2020-04-09] MEDS ORDERED: DOXYCYCLINE HYCLATE 100 MG TABLET PO ONE (23:56)
[2020-04-10] MEDS: DOXYCYCLINE HYCLATE 100 MG TABLET PO SCH ×2 (00:06→09:59)
[2020-04-10] MEDS: ACETAMINOPHEN 325 MG TABLET PO PRN (03:43)
[2020-04-10] MEDS: ISOSORBIDE DINITRATE 20 MG TABLET PO SCH ×2 (06:01→14:22)
[2020-04-10] MEDS: HEPARIN SOD (PORCINE) 5,000 UNIT/ML 1 ML VIAL SUBCUT SCH ×2 (06:01→14:22)
[2020-04-10] MEDS: LEVOTHYROXINE SODIUM 0.075 MG TABLET PO SCH (06:01)
[2020-04-10 06:28] LABS: ANION GAP 9 (5-19); BLOOD UREA NITROGEN 34 mg/dL (7-20); CALCIUM 8.5 mg/dL (8.4-10.2); CARBON DIOXIDE 31 mmol/L (22-30); CHLORIDE 93 mmol/L (98-107); GLUCOSE 117 mg/dL (75-110); POTASSIUM 4.4 mmol/L (3.6-5.0)
[2020-04-10] MEDS: INSULIN LISPRO 100 UNIT/ML 3 ML VIAL SUBCUT SCH ×3 (07:39→16:46)
[2020-04-10] MEDS: METFORMIN HCL 500 MG TABLET PO SCH ×2 (08:11→17:11)
[2020-04-10] MEDS: DOCUSATE SODIUM 100 MG CAPSULE PO SCH ×2 (09:57→17:09)
[2020-04-10] MEDS: CARVEDILOL 12.5 MG TABLET PO SCH (09:59)
[2020-04-10] MEDS: DULOXETINE HCL 30 MG CAPSULE.DR PO SCH (09:59)
[2020-04-10] MEDS: FLUTICASONE/VILANTEROL 100-25 MCG/DOSE IH SCH (09:59)
--- NOTE | 2020-04-10 17:21 | PDOC DISCHARGE SUMMARY ---
Impression - Admit/DC Date/PCP Admission Date/Primary Care Provider: 04/05/20 18:10 Discharge Date: 04/10/20 - Discharge Diagnosis (1) CHF (congestive heart failure) Is this a current diagnosis for this admission?: Yes (2) Obesity hypoventilation syndrome Is this a current diagnosis for this admission?: Yes (3) Hypothyroid Is this a current diagnosis for this admission?: Yes (4) Panniculitis Is this a current diagnosis for this admission?: Yes (5) Sleep apnea Is this a current diagnosis for this admission?: Yes (6) Stasis dermatitis of both legs Is this a current diagnosis for this admission?: Yes (7) Diabetes mellitus Is this a current diagnosis for this admission?: Yes (8) Morbid obesity with BMI of 50.0-59.9, adult Is this a current diagnosis for this admission?: Yes (9) COPD (chronic obstructive pulmonary disease) Is this a current diagnosis for this admission?: Yes - Additional Information Resuscitation Status: Full Code Discharge Diet: Diabetic Prescriptions: Carvedilol [Coreg 12.5 mg Tablet] 12.5 mg PO Q12 #60 tablet Metformin HCl [Glucophage 500 mg Tablet] 500 mg PO BIDACBS #60 tablet Furosemide [Lasix 40 mg Tablet] 40 mg PO BID #20 Furosemide [Lasix 40 mg Tablet] 40 mg PO BID #20 tablet Lisinopril [Prinivil 10 mg Tablet] 10 mg PO DAILY #30 tablet Levothyroxine Sodium [Synthroid 0.05 mg Tablet] 0.1 mg PO Q6AM #60 tablet Home Medications: Metolazone [Zaroxolyn 2.5 mg Tablet] 2.5 mg PO BIDP PRN 04/06/20 Pharmacy Medrec Note 0 unit .SEE PHARMACY NOTES MDD SEE PHARMACY NOTES 04/06/20 Carvedilol [Coreg 12.5 mg Tablet] 12.5 mg PO Q12 #60 tablet 04/10/20 Furosemide [Lasix 40 mg Tablet] 40 mg PO BID #20 04/10/20 Furosemide [Lasix 40 mg Tablet] 40 mg PO BID #20 tablet 04/10/20 Levothyroxine Sodium [Synthroid 0.05 mg Tablet] 0.1 mg PO Q6AM #60 tablet 04/10/20 Lisinopril [Prinivil 10 mg Tablet] 10 mg PO DAILY #30 tablet 04/10/20 Metformin HCl [Glucophage 500 mg Tablet] 500 mg PO BIDACBS #60 tablet 04/10/20 History of Present Illiness History of Present Illness: According to admitting provider: TRENA BENITEZ is a 50 year old female with a reported history of congestive heart failure (unknown if systolic or diastolic) as well as morbid obesity, COPD, nicotine addiction and diabetes mellitus type 2. She traveled from [place] and is supposed to go back on April 13. She has been having some abdominal pain. The left side of the abdomen is tender. She also reports her legs feeling warm to the touch. She has had 2 previous cardiac arrest events. She reports wearing CPAP and although she is unaware of her current medication regimen she was in inpatient 2 years ago. She has been feeling poorly for several days. Her appetite has been diminished. She has been feeling poorly in general. She denies Covid contacts. She also became tearful and is scared of being hospitalized. Hospital Course Hospital Course: Patient presented with shortness of breath and bilateral edema. Her BNP was also noted to be 4200. She was started on treatment for CHF. She received high-dose IV diuresis. She notably reports a history of CHF. Echocardiogram showed ejection fraction of 40 to 45% with moderate pulmonary hypertension will also have evidence of right heart failure as well . feels most of her fluid retention is likely from right heart failure more so than left heart failure though she clearly has acute on chronic biventricular systolic heart failure. IV diuresis was stopped due to FELICIA as she was actually given some fluid back. Her edema at this point is mostly nonpitting edema which is likely from her hypothyroidism as her TSH was 13. I have increased her dose of Synthroid to 0.1 mg daily. She has been given instructions for repeat TFTs in 4 to 6 weeks. Her hypothyroid is likely contributing to her fatigue as well as her weight gain and other conditions. She also notably has obesity hypoventilation syndrome which is the biggest culprit here leading to right heart failure as well as fatigue. She is being discharged home on her home regimen of Lasix 40 mg twice a day with metolazone. I have advised her that once she gets back to [place] in 3 days, she should see her primary care doctor/head of digital about converting her over from a CPAP to nocturnal BiPAP. I think this will be most beneficial for her. She has also been started on Metformin for diabetes. She also received antibiotics while in the hospital for panniculitis. I do not think she needs any more antibiotics at this point. I have called patient's son today to update him about patient's discharge plans. Patient will be flying back to [place] in 3 days with her son. Physical Exam Vital Signs: Temp Pulse Resp BP Pulse Ox 97.5 F 78 18 129/81 H 98 04/10/20 11:31 04/10/20 11:31 04/10/20 11:31 04/10/20 11:31 04/10/20 11:31 Intake & Output 04/09/20 04/10/20 04/11/20 06:59 06:59 06:59 Intake Total 490 800 560 Output Total 1140 Balance -650 800 560 Weight 149.1 kg 149.2 kg General appearance: PRESENT: no acute distress, cooperative, morbidly obese Neck exam: ABSENT: JVD Respiratory exam: PRESENT: clear to auscultation aime, symmetrical, unlabored. ABSENT: crackles, tachypnea, wheezes Cardiovascular exam: PRESENT: +S1, +S2. ABSENT: tachycardia GI/Abdominal exam: PRESENT: soft. ABSENT: rebound, rigid, tenderness Extremities exam: PRESENT: pedal edema - nonpitting Neurological exam: PRESENT: alert, awake, oriented to person, oriented to place, oriented to time, oriented to situation Results Laboratory Results: WBC 4.7 10^3/uL (4.0-10.5) 04/07/20 06:30 RBC 4.73 10^6/uL (3.72-5.28) 04/07/20 06:30 Hgb 12.1 g/dL (12.0-15.5) 04/07/20 06:30 Hct 38.0 % (36.0-47.0) 04/07/20 06:30 MCV 81 fl (80-97) 04/07/20 06:30 MCH 25.7 pg (27.0-33.4) L 04/07/20 06:30 MCHC 31.9 g/dL (32.0-36.0) L 04/07/20 06:30 RDW 16.9 % (11.5-14.0) H 04/07/20 06:30 Plt Count 178 10^3/uL (150-450) 04/07/20 06:30 Lymph % (Auto) 17.5 % (13-45) 04/07/20 06:30 [place] % (Auto) 10.2 % (3-13) 04/07/20 06:30 Eos % (Auto) 2.9 % (0-6) 04/07/20 06:30 Baso % (Auto) 0.6 % (0-2) 04/07/20 06:30 Absolute Neuts (auto) 3.2 10^3/uL (1.7-8.2) 04/07/20 06:30 Absolute Lymphs (auto) 0.8 10^3/uL (0.5-4.7) 04/07/20 06:30 Absolute Monos (auto) 0.5 10^3/uL (0.1-1.4) 04/07/20 06:30 Absolute Eos (auto) 0.1 10^3/uL (0.0-0.6) 04/07/20 06:30 Absolute Basos (auto) 0.0 10^3/uL (0.0-0.2) 04/07/20 06:30 Seg Neutrophils % 68.8 % (42-78) 04/07/20 06:30 VBG pH 7.31 (7.30-7.42) 04/08/20 05:07 VBG pCO2 63.0 mmHg (35-63) 04/08/20 05:07 VBG HCO3 30.7 mmol/L (20-32) 04/08/20 05:07 VBG Base Excess 2.7 mmol/L 04/08/20 05:07 Sodium 132.8 mmol/L (137-145) L 04/10/20 05:30 Potassium 4.4 mmol/L (3.6-5.0) 04/10/20 05:30 Chloride 93 mmol/L (98-107) L 04/10/20 05:30 Carbon Dioxide 31 mmol/L (22-30) H 04/10/20 05:30 Anion Gap 9 (5-19) 04/10/20 05:30 BUN 34 mg/dL (7-20) H 04/10/20 05:30 Creatinine 1.02 mg/dL (0.52-1.25) 04/10/20 05:30 Est GFR ( Amer) > 60 (>60) 04/10/20 05:30 Est GFR (MDRD) Non-Af 57 (>60) L 04/10/20 05:30 Glucose 117 mg/dL (75-110) H 04/10/20 05:30 POC Glucose 122 mg/dL (70-110) H 04/10/20 16:21 Hemoglobin A1c % 8.4 % (4.7-6.0) H 04/06/20 06:00 Calcium 8.5 mg/dL (8.4-10.2) 04/10/20 05:30 Magnesium 1.8 mg/dL (1.6-2.3) 04/09/20 05:53 Total Bilirubin 1.3 mg/dL (0.2-1.3) 04/08/20 05:07 Direct Bilirubin 0.7 mg/dL (0.0-0.4) H 04/08/20 05:07 Neonat Total Bilirubin Not Reportable 04/08/20 05:07 Neonat Direct Bilirubin Not Reportable 04/08/20 05:07 Neonat Indirect Bili Not Reportable 04/08/20 05:07 AST 23 U/L (14-36) 04/08/20 05:07 ALT 14 U/L (<35) 04/08/20 05:07 Alkaline Phosphatase 139 U/L (38-126) H 04/08/20 05:07 Troponin I 0.036 ng/mL 04/06/20 06:00 NT-Pro-B Natriuret Pep 4200 pg/mL (<125) H 04/05/20 14:27 Total Protein 6.6 g/dL (6.3-8.2) 04/08/20 05:07 Albumin 3.1 g/dL (3.5-5.0) L 04/08/20 05:07 Triglycerides 73 mg/dL (<150) 04/06/20 06:00 Cholesterol 125.81 mg/dL (0-200) 04/06/20 06:00 LDL Cholesterol Direct 75 mg/dL (<100) 04/06/20 06:00 VLDL Cholesterol 15.0 mg/dL (10-31) 04/06/20 06:00 HDL Cholesterol 31 mg/dL (>40) L 04/06/20 06:00 TSH 13.20 uIU/mL (0.47-4.68) H 04/05/20 14:27 Free T4 1.14 ng/dL (0.78-2.19) 04/06/20 06:00 Free T3 pg/mL 3.59 pg/mL (2.77-5.27) 04/06/20 06:00 Urine Color STRAW 04/05/20 16:54 Urine Appearance CLEAR 04/05/20 16:54 Urine pH 5.0 (5.0-9.0) 04/05/20 16:54 Ur Specific [place] 1.006 04/05/20 16:54 Urine Protein NEGATIVE mg/dL (NEGATIVE) 04/05/20 16:54 Urine Glucose (UA) NEGATIVE mg/dL (NEGATIVE) 04/05/20 16:54 Urine Ketones NEGATIVE mg/dL (NEGATIVE) 04/05/20 16:54 Urine Blood NEGATIVE (NEGATIVE) 04/05/20 16:54 Urine Nitrite NEGATIVE (NEGATIVE) 04/05/20 16:54 Urine Bilirubin NEGATIVE (NEGATIVE) 04/05/20 16:54 Urine Urobilinogen NEGATIVE mg/dL (<2.0) 04/05/20 16:54 Ur Leukocyte Esterase NEGATIVE (NEGATIVE) 04/05/20 16:54 Urine WBC (Auto) 2 /HPF 04/05/20 16:54 Urine RBC (Auto) 0 /HPF 04/05/20 16:54 U Hyaline Cast (Auto) 3 /LPF 04/05/20 16:54 Urine Bacteria (Auto) TRACE /HPF 04/05/20 16:54 Squamous Epi Cells Auto 3 /HPF 04/05/20 16:54 Urine Mucus (Auto) RARE /LPF 04/05/20 16:54 Urine Ascorbic Acid NEGATIVE (NEGATIVE) 04/05/20 16:54 COVID-19 Source Cancelled 04/05/20 14:27 COVID-19 (PREET) Cancelled 04/05/20 14:27 Influenza A (RT-PCR) NEGATIVE (NEGATIVE) 04/05/20 14:27 Influenza B (RT-PCR) NEGATIVE (NEGATIVE) 04/05/20 14:27 RSV (RT-PCR) NEGATIVE (NEGATIVE) 04/05/20 14:27 SARS-CoV-2 Rap RNA(RT-PCR) NEGATIVE (NEGATIVE) 04/05/20 14:27 04/05/20 04/05/20 04/06/20 14:27 23:13 06:00 Troponin I 0.028 0.034 0.036 NT-Pro-B Natriuret Pep 4200 H Impressions: Acute Abdomen Series 04/05/20 13:13 IMPRESSION: Enlarged cardiac silhouette with central vascular congestion. No evidence of acute intra-abdominal/pelvic process. Chest X-Ray 04/05/20 18:14 IMPRESSION: STABLE APPEARANCE OF THE CHEST. Plan Time Spent: Greater than 30 Minutes Stroke Is this a Stroke Patient?: No Acute Heart Failure Is this a Heart Failure Patient?: Yes Documentation of LVEF assessment?: Yes LVEF: LVEF Less Than or Equal to 40% Anticoagulant Therapy: N/A Discharged on Evidence-Based Beta Blockers: Yes Discharged on ARNI?: No-Document Contraindications Reason(s) not discharged on ARNI: ACEI use within the prior 36 hours Discharged on ARB?: No-document contraindications Reason(s) not Discharged on ARB: SIENNA Discharged on ACEI?: Yes For LVEF <35%, discharged on Aldosterone Antagonist?: N/A (LVEF > or = 35%)
[2020-04-10 17:30] VITALS: BP 138/87
== END 2020-04-10 19:11 | disposition home or self-care (01) | DRG 291 ==
LOC: ER 10:12 → EH 18:10 → 5 21:36 → 4W 04-07 19:43
PROVIDERS: ADMIT Hospitalist; ATTEND Internal Medicine
PROC: 5A09357 Assistance with Respiratory Ventilation, Less than 24 Consecutive Hours, Continuous Positive Airway Pressure (ICD-10-PCS; principal; 2020-04-07)
DX: I11.0 Hypertensive heart disease with heart failure (principal); J96.01 Acute respiratory failure with hypoxia; N17.9 Acute kidney failure, unspecified; E66.2 Morbid (severe) obesity with alveolar hypoventilation; Z68.43 Body mass index [BMI] 50.0-59.9, adult; J44.1 Chronic obstructive pulmonary disease with (acute) exacerbation; I27.20 Pulmonary hypertension, unspecified; I83.029 Varicose veins of left lower extremity with ulcer of unspecified site; Z86.74 Personal history of sudden cardiac arrest; I50.43 Acute on chronic combined systolic (congestive) and diastolic (congestive) heart failure; E03.9 Hypothyroidism, unspecified; M79.3 Panniculitis, unspecified; I87.2 Venous insufficiency (chronic) (peripheral); F41.9 Anxiety disorder, unspecified; F32.9 Major depressive disorder, single episode, unspecified; E11.65 Type 2 diabetes mellitus with hyperglycemia; R10.32 Left lower quadrant pain; Z79.84 Long term (current) use of oral hypoglycemic drugs; Z79.899 Other long term (current) drug therapy; Z87.891 Personal history of nicotine dependence; Z11.59 Encounter for screening for other viral diseases; Z83.6 Family history of other diseases of the respiratory system; Z82.49 Family history of ischemic heart disease and other diseases of the circulatory system
CPT/HCPCS: 36415; 71045; 74022; 80048; 80053; 80061; 81001; 82803; 82962; 83036; 83735; 83880; 84439; 84443; 84481; 84484; 85025; 87040; 87086; 93005; 93010; 93306; 94660; 96374; 99285; 0241U; C9803; J1644; J1815; J1940; J3490; J7030